=== PATIENT | female | born 1955 | race Caucasian/White ===

== ENCOUNTER 2023-02-03 18:14 | Outpatient (OUT) | payer MEDICARE, OTHER, SELFPAY ==
--- NOTE | 2023-02-03 18:22 | US_ITS ---
The [address] [address] Patient Name: KEVIN LAZARO MRN: [id number] date: 1955 Sex: F Assigned Patient Location: US Current Patient Location: US Accession/Order Number: [id number] Exam Date: 02/03/2023 18:25 Report Date: 02/03/2023 20:11 At the request of: MARILEE SAEED Procedure: US venous doppler LE RT EXAM: US venous doppler LE RT HISTORY: EDEMA R60.9 COMPARISON: None. TECHNIQUE: Right lower extremity ultrasound is performed. Doppler interrogation of the deep veins using standard technique performed. FINDINGS: Soft tissue edema is detected in the right lower extremity. There is no evidence of right lower extremity DVT. Normal augmentation and waveforms. US/US venous doppler LE RT IMPRESSION: No findings of acute right lower extremity DVT. Soft tissue swelling. Electronically authenticated by: LLUVIA MCGUIRE Date: 02/03/2023 20:11
== END 2023-02-03 18:15 | disposition home or self-care (01) ==
PROVIDERS: PCP Family Medicine; Visit Provider Family Medicine
DX: R60.0 Localized edema (principal); M79.604 Pain in right leg
CPT/HCPCS: 93971

== ENCOUNTER 2024-10-22 09:20 | Outpatient (OUT) | payer OTHER, SELFPAY ==
--- OUTSIDE RECORDS SUMMARY | 2024-09-07 07:00 | XMS_ITS ---
Author Organization The [facility] in [place] Address [address] [place] [address] Care Team Providers Care First Responder Name Role Phone Vikram Mora Primary Care Provider Allergies Allergen (clinical drug ingredient) Drug/Non Drug Allergy documented on EMR Reaction Allergy Type Onset Date Status alendronate Fosamax bad diarrhea Drug Allergy Ac tive REASON FOR VISIT Presents to office alone for c/o dry cough x4 days. Some nasal congestion, Using otc cold medication Medications Medication SIG (Take, Route, Frequency, Duration) Notes Start Date End Date Status Turmeric 500 MG as directed Orally Active Azithromycin 250 MG 2 tabs today then 1 tab Orally daily for 5 days 09/07/2024 Active Xifaxan 550 MG 1 tablet Orally tid for 14 days 07/02/2024 Active ZyrTEC Allergy 10 MG 1 tablet Orally Onc e a day Active Simvastatin 20 MG TAKE 1 TABLET BY KERON TH EVERY DAY for 90 Active Magnesium 200 MG 1 tablet with a meal Orally Q HS Active Multi Vitamin - 1 tablet Orally Once a day Active Calcium 500 MG 1 tablet with meals Orally Once a day Active Citalopram Hydrobromide 10 MG TAKE 1 TABLET BY MOUTH EVERY DAY for 90 Active Social History Tobacco Use: Social History Observation Description Date Details (start date - stop date) Former Smoker 03/28/1976 - 03/28/1983 Tobacco Use/Smoking Question Answer Notes Patient is a former smoker When did you start smoking? 03/28/1976 When did you stop smoking? 03/28/1983 How long has it been since you last smoked? > 10 years AUDIT-C (Standard) Question Answer Notes Did you have a drink contain ing alcohol in the past year? Yes How often did you have six o r more drinks on one occasion in the past year? Never (0 point) How many drinks did you have on a typical day when you were drinking in the past year? 1 or 2 drinks (0 point) How often did you have a dri nk containing alcohol in the past year? Monthly or less (1 point) Points 1 Interpretation Negative Vital Signs Weight 134.8 lbs 09/07/2024 Height 62 in 09/07/2024 Blood pressure systolic 132 mm Hg 09/08/19 25 Blood pressure diastolic 86 mm Hg 025 Temperature 99.0 degrees Fahrenheit 09/08/19 25 BMI 24.65 kg/m2 09/07/2024 Encounters Encounter Location Date Provider Diagnosis [facility] [address] [place] [address] 09/07/2024 Vikram Hoy Acute bronchitis, unspecified organism J20.9 Assessments Encounter Date Diagnosis (ICD Code) Assessment Notes Treatment Notes Treatment Clinical Notes Section Notes 09/07/2024 Acute bronchitis, unspecified organism (ICD-10 - J20.9) Rest and drink more liquids, especially water. You may use a humidifier or vaporizer to help keep the drainage moist. Ugau-brs-qmgcvlw Nasal Saline may help the stuffy and runny nose. Use Ibuprofen and or Tylenol as needed for fever, chills, body aches or pain. Children 5 years old should not be given dwrp-ggt-enmgokf cough and cold medications such as guaifenesin and dextromethorphan. If you're over age 5, you may try muoj-izy-mhefles cold medications such as guaifenesin and dextromethorphan, or multi-symptom cold reliever such as Dayquil to help reduce the symptoms. Antibiotics have been prescribed. You should take these until completed and follow the directions. Antibiotics can sometimes cause upset stomach, and in rare cases, serious allergic reactions or serious gastrointestinal problems. If you start having severe abdominal pain, severe vomiting, or bloody diarrhea, you should be reevaluated by your physician or urgent care immediately. Follow up with your Primary Care Provider or return to clinic if symptoms do not improve within 3-5 days. If you develop severe symptoms such as shortness of breath, repeated vomiting, coughing up blood, or chest pain you should go to the emergency room or call 911 Plan Of Treatment Medication Medication Name Sig Start Date Stop Date Notes Azithromycin 250 MG 2 tabs today then 1 tab Orally daily for 5 days 09/07/2024 Treatment Notes Assessment Notes Acute bronchitis, unspecified organism R est and drink more liquids, especially water. You may use a humidifier or vaporizer to help keep the drainage moist. Vsax-fig-ghksuxi Nasal Saline may help the stuffy and runny nose. Use Ibuprofen and or Tylenol as needed for fever, chills, body aches or pain. Children 5 years old should not be given rlwh-jrz-kodfuqb cough and cold medications such as guaifenesin and dextromethorphan. If you're over age 5, you may try fypp-rex-delqiho cold medications such as guaifenesin and dextromethorphan, or multi-symptom cold reliever such as Dayquil to help reduce the symptoms. Antibiotics have been prescribed. You should take these until completed and follow the directions. Antibiotics can sometimes cause upset stomach, and in rare cases, serious allergic reactions or serious gastrointestinal problems. If you start having severe abdominal pain, severe vomiting, or bloody diarrhea, you should be reevaluated by your physician or urgent care immediately. Follow up with your Primary Care Provider or return to clinic if symptoms do not improve within 3-5 days. If you develop severe symptoms such as shortness of breath, repeated vomiting, coughing up blood, or chest pain you should go to the emergency room or call 911 Next Appt Details Follow Up: 3-5 days if not i mproving, Reason: Progress Notes * Rosalind VALENTEpetty EdgarDOB:[birth year] (69 yo F)Acc No.[id number]:09/07/2024 Progress Note Patient: Colette MOSQUEDA Provider: Peg Mora ([facility])MD :1955 A ge:69 Y S ex:Female Date:09/07/2024 Address:[facility] [address] [place], [id number] Check In:10:47 AM ESTCheck O ut:11:22 AM EST Subjective: * Chief Complaints: * P resents to office alone for c/o dry cough x4 days. Some nasal congestionUsing otc cold medication * HPI: B ronchitis: The patient complains of symptoms of bronchitis. The symptoms have been present for 1-2 days. The symptoms are moderate. The patient has not been exposed to sick contacts. Symptomatic treatment has included OTC medication. Associated symptoms include nasal congestion, postnasal drainage, congested ears, cough, fever, chills, body aches. * ROS: E NT: Ear pain d enies. H oarseness d enies. ? C ardiovascular: Edema d enies. P alpitations d enies. ? R espiratory: Comments S ee HPI for details. G astrointestinal: Abdominal pain d enies. D iarrhea d enies. N ausea d enies. S kin: Rash d enies. * Active Problem List I87.2 Venous insufficiency Modified On:08/19/2022 Status:confirmed G47.00 Insomnia Modified On:02/21/2023 Status:confirmed L30.9 Eczema Modified On:08/19/2022 Status:confirmed L72.3 Sebaceous cyst Modified On:08/19/2022 Status:confirmed J32.9 Sinusitis Modified On:08/19/2022 Status:confirmed H61.20 Cerumen impaction Modified On:08/19/2022 Status:confirmed R19.7 Diarrhea Modified On:08/19/2022 Status:confirmed J20.9 Acute bronchitis Modified On:08/19/2022 Status:confirmed H10.9 Conjunctivitis Modified On:08/19/2022 Status:confirmed L25.9 Contact dermatitis Modified On:08/19/2022 Status:confirmed M23.90 Internal derangement of knee Modified On:08/19/2022 Status:confirmed K56.609 Small bowel obstruct ion Modified On:08/19/2022 Status:confirmed M17.11 Osteoarthritis of ri ght knee Modified On:08/19/2022 Status:confirmed U07.1 COVID-19 virus infec tion Modified On:05/25/2023W/U Status:confirmed R51.9 Headache, unspecifie d Modified On:02/21/2023U Status:confirmed J04.0 Acute laryngitis, wi thout mention of obstruction Modified On:08/19/2022/U Status:confirmed R19.03 Right lower quadrant abdominal swelling, mass and lump Modified On:08/19/2022U Status:confirmed R60.9 Edema Modified On:02/03/2023U Status:confirmed K58.9 Irritable bowel dise ase Modified On:07/02/2024U Status:confirmed * Medical History: * Surgical History: R t Total knee 08/2022 * Hospitalization/Major Diagno stic Procedure: * Family History: F ather: 91 yrs, diagnosed with Unspecified heart disease. M other: 91 yrs. B rother(s): alive. S on(s): alive. D pauline(s): alive. 2 brother(s) - healthy. 1 son(s) , 2 daughter(s) . . * Social History: T obacco Use: T obacco Use/Smoking P atient is a f ormer smoker W hen did you start smoking? 0 03/28/1976 W hen did you stop smoking? 0 03/28/1983 H ow long has it been since you last smoked??> 10 years D rug/Alcohol: A GLENN-C (Standard) D id you have a drink containing alcohol in the past year? Y es H ow often did you have six or more drinks on one occasion in the past year? N ever (0 point) H ow many drinks did you have on a typical day when you were drinking in the past year? 1 or 2 drinks (0 point) H ow often did you have a drink containing alcohol in the past year? M onthly or less (1 point) P oints 1 I nterpretation N egative * Medications: T akingCalcium 500 MG Tablet 1 tablet with meals Orally Once a day Citalopram Hydrobromide 10 MG Tablet TAKE 1 TABLET BY MOUTH EVERY DAY Magnesium 200 MG Tablet 1 tablet with a meal Orally Q HS Multi Vitamin - Tablet 1 tablet Orally Once a day Simvastatin 20 MG Tablet TAKE 1 TABLET BY MOUTH EVERY DAY Turmeric 500 MG Capsule as directed Orally Xifaxan(rifAXIMin) 550 MG Tablet 1 tablet Orally tid ZyrTEC Allergy(Cetirizine HCl) 10 MG Tablet 1 tablet Orally Once a day Taking Calcium 500 MG Tablet 1 tablet with meals Orally Once a day Taking Citalopram Hydrobromide 10 MG Tablet TAKE 1 TABLET BY MOUTH EVERY DAY Taking Magnesium 200 MG Tablet 1 tablet with a meal Orally Q HS Taking Multi Vitamin - Tablet 1 tablet Orally Once a day Taking Simvastatin 20 MG Tablet TAKE 1 TABLET BY MOUTH EVERY DAY Taking Turmeric 500 MG Capsule as directed Orally Taking Xifaxan(rifAXIMin) 550 MG Tablet 1 tablet Orally tid Taking ZyrTEC Allergy(Cetirizine HCl) 10 MG Tablet 1 tablet Orally Once a day DiscontinuedCefdinir 300 MG Capsule 2 capsule Orally once a day Medication List reviewed and reconciled with the patientDiscontinued Cefdinir 300 MG Capsule 2 capsule Orally once a day Medication List reviewed and reconciled with the patient * Allergies: F osamax: bad diarrhea Objective: * Vitals: W t:134.8lbs, Ht: 62 in, BP:132/86mm Hg, Temp:99.0F, BMI:24.65Index, Ht-cm: 157.48 cm, Wt-k.14 kg. * Examination: G eneral Examination: GENERAL APPEARANCE: in no acute distress. EYES: EOMI. EARS: auditory canal clear, middle ear effusion noted.? NOSE: clear discharge, turbinates pale and swollen. ORAL CAVITY: mucosa moist. THROAT: no erythema, post-nasal drainage noted. NECK: neck supple, no thyromegaly. LYMPH NODES: n o cervical adenopathy. LUNGS: unlabored, clear to auscultation bilaterally. CARDIO: n o murmurs, regular rate and rhythm. ABDOMEN: bowel sounds present, no organomegaly . ? Assessment: * Assessment: 1. A cute bronchitis, unspecified organism - J20.9 (Primary) Plan: * Treatment: * Procedure Codes: * Preventive Medicine: Screenings/Counseling: F ALL RISK SCREENING Fall Risk Assessment: N o falls in the past year * Follow Up: 3 -5 days if not improving * * Sign off status: Completed Visit Status: C HK (Check Out) true * Provider: Peg Mora ([facility])MD Date: 0 09/07/2024 Generated for Elliott lazo/Refugio/Jason on: 0 10/22/2024 09:27 AM EDT History and Physical Notes * Examination Category Sub-Category Detail Notes Category Not es General Examination GENERAL APPEARANCE: in no acute di stress EYES: EOMI EARS: auditory canal clear , middle ear effusion noted NOSE: clear discharge, tur binates pale and swollen THROAT: no erythema, post-na shirley drainage noted NECK: neck supple, no thyr omegaly CARDIO: no murmurs, regular rate and rhythm LUNGS: unlabored, clear to auscultation bilaterally ABDOMEN: bowel sounds present , no organomegaly LYMPH NODES: no cervical adenopat hy ORAL CAVITY: mucosa moist
--- OUTSIDE RECORDS SUMMARY | 2024-09-12 04:27 | XMS_ITS ---
Author Organization The [facility] in [place] Address [address] [place] [address] Care Team Providers Care Court Monitor Name Role Phone Vikram Mora Primary Care Provider REASON FOR VISIT Bronchitis Medications Medication SIG (Take, Route, Fr equency, Duration) Notes Start Date End Date Status Benzonatate 200 MG 1 capsule Orally Thr ee times a day for 7 days 09/12/2024 Active levoFLOXacin 500 MG 1 tablet Orally Once a day for 10 day(s) 09/12/2024 Active Encounters Encounter Location Date Provider Diagnosis [address] [address] 09/12/2024 Vikram Mora Plan Of Treatment Medication Medication Name Sig Start Date Stop Date Notes Benzonatate 200 MG 1 capsule Orally Thr ee times a day for 7 days 09/12/2024 levoFLOXacin 500 MG 1 tablet Orally Once a day for 10 day(s) 09/12/2024 Progress Notes * Colette VALENTEDOB:[birth year] (69 yo F)Acc No.[id number]:09/12/2024 Patient: Claudia Colette RON :1955 A ge:69 Y S ex:Female [address] [place], [address] * Refills Start levoFLOXacin Tablet, 500 MG, [...] * true * Date: Generated for Elliott lazo/Refugio/Jason on: 10/22/2024 09:27 AM EDT
--- OUTSIDE RECORDS SUMMARY | 2024-10-22 04:45 | XMS_ITS ---
Author Organization [facility] in [place] Address [address] [place] [address] Care Team Providers Care Prize Coordinator Name Role Phone Vikram Mora Primary Care Provider Allergies Allergen (clinical drug ingredient) Drug/Non Drug Allergy documented on EMR Reaction Allergy Type Onset Date Status alendronate Fosamax bad diarrhea Drug Allergy Ac tive REASON FOR VISIT Check Up, Struggling with focus, Overstimulation, Anxiety Medications Medication SIG (Take, Route, Frequency, Duration) Notes Start Date End Date Status Calcium 500 MG 1 tablet with meals Orally Once a day Active Multi Vitamin - 1 tablet Orally Once a day Active Simvastatin 20 MG TAKE 1 TABLET BY KERON TH EVERY DAY for 90 Active Citalopram Hydrobromide 10 MG TAKE 1 TABLET BY MOUTH EVERY DAY for 90 Active Magnesium 200 MG 1 tablet with a meal Orally Q HS Active ZyrTEC Allergy 10 MG 1 tablet Orally Onc e a day Active Turmeric 500 MG as directed Orally Active Social History Tobacco Use: Social History Observation Description Date Details (start date - stop date) Former Smoker 03/28/1976 - 03/28/1983 Tobacco Use/Smoking Question Answer Notes Patient is a former smoker When did you start smoking? 03/28/1976 When did you stop smoking? 03/28/1983 How long has it been since you last smoked? > 10 years Problems Problem Type SNOMED Code ICD Code Onset Dates Problem Status W/U Status Risk Notes Problem Magnesium deficiency (808884118) Magnesium deficiency (E61.2) Active confirmed Problem Allergic rhinitis (93058727) Allergic rhinitis (J30.9) Active confirmed Problem Osteopenia (522940276) Osteopenia (M85.80) Active confirmed Vital Signs Weight 135.0 lbs 10/22/2024 Height 62 in 10/22/2024 Blood pressure systolic 138 mm Hg 10/23/19 25 Blood pressure diastolic 82 mm Hg 025 BMI 24.69 kg/m2 10/22/2024 Encounters Encounter Location Date Provider Diagnosis [facility] [address] [place] [address] 10/22/2024 Vikram Mora Irritable bowel disease K58.9 ; Magnesium deficiency E61.2 ; Allergic rhinitis J30.9 and Osteopenia M85.80 Assessments Encounter Date Diagnosis (ICD Code) Assessment Notes Treatment Notes Treatment Clinical Notes Section Notes 10/22/2024 Irritable bowel disease (ICD-10 - K58.9) stabel off meds 10/22/2024 Magnesium deficiency (ICD-10 - E61.2) checing labs 10/22/2024 Allergic rhinitis (ICD-10 - J30.9) [place]abel for [place] 10/22/2024 Osteopenia (ICD-10 - M85.80) on prolia Plan Of Treatment Treatment Notes Assessment Notes Irritable bowel disease stabel off meds Magnesium deficiency checing labs Allergic rhinitis stabel for [place] Osteopenia on prolia Pending Test Test Name Order Date HEMOGLOBIN A1C (GLYCO) 10/22/2024 IRON, TOTAL 10/22/2024 LIPID PANEL (CHOL/TRIG/HDL/LDL) 10/23/19 25 MAGNESIUM 10/22/2024 THYROID PANEL (T4/TSH/FREE T3) 5 CMP (COMP MET DAILEY) w/eGFR CKD-EPI 2024 CBC WITH DIFF 10/22/2024 Progress Notes * Colette VALENTEDOB:[birth year] (69 yo F)Acc No.[id number]:10/22/2024 UNLOCKED PROGRESS NOTE Progress Note Patient: Colette MOSQUEDA Provider: Peg Mora ([facility])MD :1955 A ge:69 Y S ex:Female Date:10/22/2024 Address:[facility] [address], [id number] Check In:08:48 AM ESTCheck O ut:09:12 AM EST Subjective: * Chief Complaints: * 1 . Check Up. 2. Struggling with focus, Overstimulation, Anxiety. * HPI: G eneral: Had labs done in [place] - n eeds routine labs doing well with anxiety - controllingon own On magnesium - heling cholesterl - on meds SHERIN _ stabel on meds. * ROS: E ENT: hearing changes d enies. v isual changes d enies.?non-healing mouth sores d enies. s wollen glands or neck lumps d enies. h oarseness d enies. s ore throat d enies. d ifficulty swallowing d enies. n ose bleeds d enies. n suad congestion d enies. e ar ache d enies. e ar discharge?denies. r inging in ears d enies. l ight sensitivity d enies. e ye pain d enies. b lurring d enies. e ye irritation d enies. d ouble vision d enies.?vision loss d enies. G eneral/Constitutional: Sweats: D enies. F atigue d enies. S leep problems d enies. A norexia d enies. M alaise d enies. W eight loss d enies.?Fatigue or Weakness d enies. F ever or Chills d enies. C ardiovascular: Shortness of Breath w/lying flat d enies. L ightheadedness/dizziness d enies. C hest tightness/ heavy pressure d enies. S welling of legs, ankles, or feet d enies. W aking up with shortness of breath d enies. C hest pain denies. P alpitations d enies. W eight gain d enies. R espiratory: Chronic or frequent cough d enies. C oughing up blood?denies. D ifficulty breathing d enies. P roductive cough d enies. S noring?denies. S hortness of breath that awakens from sleep (PND) d enies. C hest pain d enies. S putum production d enies. W heezing d enies. M usculoskeletal: Joint pain d enies. J oint Fluid d enies. B ack pain d enies. K nee pain d enies. N silke pain d enies. J oint Stiffness d enies. M uscle cramps d enies. W eakness of muscles d enies. A rthritis d enies. M uscle aches d enies. P ain in shoulder(s) d enies. S wollen joints d enies. * Medical History: V enous insufficiency, Osteoarthritis of right knee, Small bowel obstruction, COVID-19 virus infection, Diarrhea, Right lower quadrant abdominal swelling, mass and lump, Eczema, Acute bronchitis, Cerumen impaction, Internal derangement of knee, Sebaceous cyst, Contact dermatitis, Insomnia, Conjunctivitis, Sinusitis, Acute laryngitis, without mention of obstruction, Headache, unspecified.? * Surgical History: R t Total knee 08/2022. * Hospitalization/Major Diagno stic Procedure: D enies Past Hospitalization. * Family History: F ather: 91 yrs, [...] been since you last smoked??> 10 years * Medications: T aking Calcium 500 MG Tablet 1 tablet with meals Orally Once a day , Taking Citalopram Hydrobromide 10 MG Tablet TAKE 1 TABLET BY MOUTH EVERY DAY , Taking Magnesium 200 MG Tablet 1 tablet with a meal Orally Q HS , Taking Multi Vitamin - Tablet 1 tablet Orally Once a day , Taking Simvastatin 20 MG Tablet TAKE 1 TABLET BY MOUTH EVERY DAY , Taking Turmeric 500 MG Capsule as directed Orally , Taking ZyrTEC Allergy(Cetirizine HCl) 10 MG Tablet 1 tablet Orally Once a day , Discontinued Azithromycin 250 MG Tablet 2 tabs today then 1 tab Orally daily , Discontinued Benzonatate 200 MG Capsule 1 capsule Orally Three times a day , Discontinued levoFLOXacin 500 MG Tablet 1 tablet Orally Once a day , Discontinued Xifaxan(rifAXIMin) 550 MG Tablet 1 tablet Orally tid , Medication List reviewed and reconciled with the patient * Allergies: F osamax: bad diarrhea. Objective: * Vitals: W t:135.0lbs, Ht: 62 in, BP:138/82mm Hg, BMI:24.69Index, Ht-cm: 157.48 cm, Wt-k.24 kg. * Examination: P hysical Exam: GENERAL: w ell developed, well nourished, in no acute distress. HEAD: n ormocephalic/atraumatic. EYES: p upils equal, round and reactive to light, conjunctivae and sclerae normal. EARS: n o deformity or lesion of external ear, canals and TM appear normal bilaterally, TM's intact, not inflamed with normal light reflex, hearing grossly normal to conversational speech. NOSE: n o deformity, discharge, inflammation, or lesions.? MOUTH: m ucous membranes moist, normal oropharynx and posterior pharynx without lesions or exudates, tongue normal, dentition normal. NECK: n silke supple, no masses or palpable cervical nodes, trachea midline, thyroid without nodules, masses, tenderness, or enlargement. CHEST: n o chest wall deformity, no chest wall tenderness.? LUNGS: n ormal respiratory effort and clear to auscultation, no wheezes, rales, or rhonchi, good air exchange. CARDIO: r egular rate and rhythm, normal S1 and S2, nor murmur, rub, or gallop. PULSES: n ormal capillary refill. ABDOMEN: s oft, non-distended, non-tender, no masses. MUSCULOSKELETAL: n o deformity or scoliosis noted, normal range of motion, joints normal, no erythema, edema, effusion, or ecchymosis. EXTREMITY: n o clubbing, cyanosis, edema, or deformity with normal ROM in both upper and lower bilateral extremities. NEUROLOGIC: g rossly normal. SKIN: n o rashes, ulcerations, or suspicious lesions. LYMPH NODES: n o cervical adenopathy, nodes normal. MENTAL STATUS: a lert and oriented x3, normal mood and affect. Assessment: * Assessment: 1. I rritable bowel disease - K58.9 (Primary) 2 . M agnesium deficiency - E61.2 3 . A llergic rhinitis - J30.9 4 . O steopenia - M85.80? Plan: * Treatment: 2. M agnesium deficiency L AB: HEMOGLOBIN A1C (GLYCO) L AB: IRON, TOTAL L AB: LIPID PANEL (CHOL/TRIG/HDL/LDL) L AB: MAGNESIUM L AB: THYROID PANEL (T4/TSH/FREE T3) L AB: CMP (COMP MET DAILEY) w/eGFR CKD-EPI L AB: CBC WITH DIFF Notes: checing labs 3. A llergic rhinitis L AB: HEMOGLOBIN A1C (GLYCO) L AB: IRON, TOTAL L AB: LIPID PANEL (CHOL/TRIG/HDL/LDL) L AB: THYROID PANEL (T4/TSH/FREE T3) L AB: CMP (COMP MET DAILEY) w/eGFR CKD-EPI L AB: CBC WITH DIFF Notes: stabel for [place] 4. O steopenia L AB: HEMOGLOBIN A1C (GLYCO) L AB: IRON, TOTAL L AB: LIPID PANEL (CHOL/TRIG/HDL/LDL) L AB: THYROID PANEL (T4/TSH/FREE T3) L AB: CMP (COMP MET DAILEY) w/eGFR CKD-EPI L AB: CBC WITH DIFF Notes: on prolia * * Electronic signature of Vikram Mora MD, [id number] on 10/22/2024 at 09:27 AM EDT Sign off status: Pending Visit Status: Edwin HK (Check Out) * Provider: Peg Mora ([facility])MD Date: 10/22/2024 Generated for Printi ng/Faxing/eTransmitting on: 10/22/2024 09:27 AM EDT History and Physical Notes * HPI (History of Present Illness) Category Sub-Category Detail Notes Category Not es General Had labs done in [place] - needs routine labs doing well with anxiety - controllingon own On magnesium - heling cholesterl - on meds SHERIN _ stabel on meds Examination Category Sub-Category Detail Notes Category Not es Physical Exam GENERAL: well developed, well nourished, in no acute distress HEAD: normocephalic/atraum atic EYES: pupils equal, round and reactive to light, conjunctivae and sclerae normal EARS: no deformity or lesi on of external ear, canals and TM appear normal bilaterally, TM's intact, not inflamed with normal light reflex, hearing grossly normal to conversational speech NOSE: no deformity, discha rge, inflammation, or lesions MOUTH: mucous membranes emmanuel st, normal oropharynx and posterior pharynx without lesions or exudates, tongue normal, dentition normal NECK: neck supple, no mass es or palpable cervical nodes, trachea midline, thyroid without nodules, masses, tenderness, or enlargement CHEST: no chest wall deform ity, no chest wall tenderness LUNGS: normal respiratory e ffort and clear to auscultation, no wheezes, rales, or rhonchi, good air exchange CARDIO: regular rate and rhy thm, normal S1 and S2, nor murmur, rub, or gallop PULSES: normal capillary ref ill ABDOMEN: soft, non-distended, non-tender, no masses RECTAL: MUSCULOSKELETAL: no deformity or scol iosis noted, normal range of motion, joints normal, no erythema, edema, effusion, or ecchymosis EXTREMITY: no clubbing, cyanosi s, edema, or deformity with normal ROM in both upper and lower bilateral extremities NEUROLOGIC: grossly normal SKIN: no rashes, ulceratio ns, or suspicious lesions LYMPH NODES: no cervical adenopat hy, nodes normal MENTAL STATUS: alert and oriented x 3, normal mood and affect
--- OUTSIDE RECORDS SUMMARY | 2024-10-22 09:27 | XMS_ITS | Patient Health Record ---
Author Organization [facility] in [place] Address [address] [place] [address] Care Team Providers Care Phone Technician Name Role Phone Vikram Mora Primary Care Provider [phone] Allergies Allergen (clinical drug ingredient) Drug/Non Drug Allergy documented on EMR Reaction Allergy Type Onset Date Status alendronate Fosamax bad diarrhea Drug Allergy Ac tive Reason For Referral No Information Medications Medication SIG (Take, Route, Frequency, Duration) [...] with a meal Orally Q HS Active Turmeric 500 MG as directed Orally Active ZyrTEC Allergy 10 MG 1 tablet Orally Onc e a day Active Social History Tobacco Use: Social History Observation Description Date Details (start date - stop date) Former Smoker 03/28/1976 - 03/28/1983 Tobacco Use/Smoking Question Answer Notes Patient is a former smoker When did you start smoking? 03/28/1976 When did you stop smoking? 03/28/1983 How long has it been since you last smoked? > 10 years Alcohol Screen (Audit-C) Question Answer Notes Did you have a drink containing alcohol in the p ast year? No Points 0 Interpretation Negative AUDIT-C (Standard) Question Answer Notes Did you [...] less (1 point) Points 1 Interpretation Negative Problems Problem Type SNOMED Code ICD Code Onset Dates Problem Status W/U Status Risk Notes Problem Magnesium deficiency (074739823) Magnesium deficiency (E61.2) Active confirmed Problem Swollen abdomen (60642978) Right lower quadrant abdominal swelling, mass and lump (R19.03) Active confirmed Problem Edema (15941772) Edema (R60.9) Active confirmed Problem Venous insufficiency of leg (disorder) (943678027) Venous insufficiency (I87.2) Active confirmed Problem Osteopenia (485134922) Osteopenia (M85.80) Active confirmed Problem Insomnia (206309641) Insomnia (G47.00) Active confirmed Problem Eczema (92331509) Eczema (L30.9) Active confirm ed Problem Sebaceous cyst (160978253) Sebaceous cyst (L72.3) Active confirmed Problem Sinusitis (11314121) Sinusitis (J32.9) Active confirmed Problem Allergic rhinitis (27799709) Allergic rhinitis (J30.9) Active confirmed Problem Impacted cerumen (08862196) Cerumen impaction (H61.20) Active confirmed Problem Diarrhea (68933767) Diarrhea (R19.7) Active confirmed Problem Acute bronchitis (01067618) Acute bronchitis (J20.9) Active confirmed Problem Conjunctivitis (0960991) Conjunctivitis (H10.9) Active confirmed Problem Contact dermatitis (30910258) Contact dermatitis (L25.9) Active confirmed Problem Internal derangement of knee (45044639) Internal derangement of knee (M23.90) Active confirmed Problem Irritable bowel syndrome (49204348) Irritable bowel disease (K58.9) Active confirmed Problem Small bowel obstruction (865671935) Small bowel obstruction (K56.609) Active confirmed Problem Osteoarthritis of knee (164737158) Osteoarthritis of right knee (M17.11) Active confirmed Problem Disease caused by Severe acute respiratory syndrome coronavirus 2 (disorder) (103824733) COVID-19 virus infection (U07.1) Active confirmed Problem Headache (16991681) Headache, unspecified (R51.9) Active confirmed Problem Acute Laryngitis (0796889) Acute laryngitis, without mention of obstruction (J04.0) Active confirmed Vital Signs Temperature 99.0 degrees Fahrenheit 09/07/2024 Blood pressure diastolic 82 mm Hg 10/22/2024 Height 62 in 10/22/2024 Blood pressure systolic 138 mm Hg 10/22/2024 Weight 135.0 lbs 10/22/2024 BMI 24.69 kg/m2 10/22/2024 Encounters Encounter Location Date Provider Diagnosis [address] [address] 02/09/2024 Vikram Hoy Headache, unspecifie d R51.9 ; Edema R60.9 ; Insomnia G47.00 and Encounter for Medicare annual wellness exam Z00.00 [address] [place] [address] 05/07/[address] [facility] [address] [facility] [address] 08/06/2024 Vikram Krausey [facility] [address] [facility] [address] 09/12/2024 Vikram Krausey [address] [place] [address] 07/02/2024 Vikram Jimiy Irritable bowel dise ase K58.[address] [address] 09/07/2024 Vikram Krausey Acute bronchitis, unspecified organism J20.[address] [address] 10/22/2024 Vikram Jimiy Irritable bowel dise ase K58.9 ; Magnesium deficiency E61.2 ; Allergic rhinitis J30.[address] [facility] [address] [facility] [address] 02/09/2024 Vikram Mora Encounter for [facility] are annual wellness exam Z00.00 Assessments Encounter Date Diagnosis (ICD Code) Assessment Notes Treatment Notes Treatment Clinical Notes Section Notes 02/09/2024 Encounter for Medicare annual wellness exam (ICD-10 - Z00.00) 07/02/2024 Irritable bowel disease (ICD-10 - K58.9) 09/07/2024 Acute bronchitis, unspecified organism (ICD-10 - J20.9) Rest and drink more liquids, especially water. You may use a humidifier or vaporizer to help keep the drainage moist. Hepd-dxm-clgsnjq Nasal Saline may help the stuffy and runny nose. Use Ibuprofen and or Tylenol as needed for fever, chills, body aches or pain. Children 5 years old should not be given mxon-xtr-tdelbba cough and cold medications such as guaifenesin and dextromethorphan. If you're over age 5, you may try hdmx-gep-alajjuh cold medications such as guaifenesin and dextromethorphan, [...] to the emergency room or call 911 10/22/2024 Irritable bowel disease (ICD-10 - K58.9) stabel off meds 10/22/2024 Magnesium deficiency (ICD-10 - E61.2) checing labs 02/09/2024 Headache, unspecified (ICD-10 - R51.9) 02/09/2024 Edema (ICD-10 - R60.9) 02/09/2024 Insomnia (ICD-10 - G47.00) 10/22/2024 Allergic rhinitis (ICD-10 - J30.9) stabel for [place] 10/22/2024 Osteopenia (ICD-10 - M85.80) on prolia 02/09/2024 Encounter for Medicare annual wellness exam (ICD-10 - Z00.00) Plan Of Treatment Pending Test Test Name Order Date HEMOGLOBIN A1C (GLYCO) 10/22/2024 IRON, TOTAL 10/22/2024 LIPID PANEL (CHOL/TRIG/HDL/LDL) 10/23/19 25 US Lower Extremity RT 02/03/2023 COMPREHENSIVE METABOLIC PROFILE WITH GFR 02/09/2024 OCCULT BLOOD, FECAL, IMMUNOASSAY 024 CBC W/AUTO DIFF 02/09/2024 GLYCOHEMOGLOBIN A1C 02/09/2024 MAGNESIUM 10/22/2024 THYROID PANEL (T4/TSH/FREE T3) THYROID PANEL (T4/TSH/FREE T3) 5 Vitamin D 02/09/2024 Lipid Panel 02/09/2024 CMP (COMP MET DAILEY) w/eGFR CKD-EPI 2024 CBC WITH DIFF 10/22/2024 Insurance Providers Payer Name Payer Address Payer Phone Subscriber Number Group Number Insured Name Patient Relationship to Insured Coverage Start Date Coverage End Date [employer] [address] [place] [phone] [id number] Colette Valente Self - patient is the insured Medical (General) History Medical History History ICD Code Venous insufficiency I87.2 Osteoarthritis of right knee M17.11 Small bowel obstruction K56.609 COVID-19 virus infection U07.1 Diarrhea R19.7 Right lower quadrant abdominal swelling, mass and lump R19.03 Eczema L30.9 Acute bronchitis J20.9 Cerumen impaction H61.20 Internal derangement of knee M23.90 Sebaceous cyst L72.3 Contact dermatitis L25.9 Insomnia G47.00 Conjunctivitis H10.9 Sinusitis J32.9 Acute laryngitis, without mention of obs truction J04.0 Headache, unspecified R51.9 Surgical History Surgery Date(Month/Year) Rt Total knee 08/2022
--- OUTSIDE RECORDS SUMMARY | 2024-10-22 09:46 | XMS_ITS | CCD ---
Author Organization [facility] Care Team Providers Care Systems Technologist Name Role Phone Alexander Gen Carrillo Primary Care Physician Marilee Mora Primary Care Physician GRACEY ., DR HUNT Primary Care Unavailable HOY ., DR HUNT Admitting Unavailable HOY ., DR HUNT Attending Unavailable HOY ., DR HUNT Consulting Unavailable HOY ., DR HUNT Primary Care Unavailable HOY ., DR HUNT Admitting Unavailable HOY ., DR HUNT Attending Unavailable HOY ., DR HUNT Consulting Unavailable HOY ., DR HUNT Admitting Unavailable HOY ., DR HUNT Attending Unavailable HOY ., DR HUNT Consulting Unavailable HOY ., DR HUNT Primary Care Unavailable HOY ., DR HUNT Admitting Unavailable HOY ., DR HUNT Attending Unavailable HOY ., DR HUNT Primary Care Unavailable HOY ., DR HUNT Primary Care Unavailable HOY ., DR HUNT Admitting Unavailable HOY ., DR HUNT Consulting Unavailable HOY ., DR HUNT Attending Unavailable HOY ., DR HUNT Primary Care Unavailable NILL ., DR WOODRUFF Procedure Practitioner Unanimoi lable HOY ., DR HUNT Admitting Unavailable HOY ., DR HUNT Attending Unavailable HOY ., DR HUNT Consulting Unavailable NILL ., DR WOODRUFF Consulting Unavailable RONALD JORDAN Consulting Unavailable AGUBOSIMANÍBAL Consulting Unavailable BRANDON GARCIA Consulting Unavailable Marilee Mora MD Primary Care Provider [phone] JACOB ALVAREZ Referring Unavailable JACOB ALVAREZ Attending Unavailable JORDIN GARCIA Attending Unavailable BELINDA RAMIREZ Attending Unavailable JORDIN GARCIA Referring Unavailable Ranjan PEDERSEN Attending Unavailable Allergies Allergy Classification Reported Allergen(s) Allergy Type Date of Onset Reaction(s) Facility (1 source) No Known Medication Allergies; Translations: [No Known Medication Allergies] Propensity to adverse reactions (disorder) [facility] Repository Medications Current Medications Medication Drug Class(es) Dates Sig (Normalized) Sig (Original) Ascorbic Acid / Collagen (2 sources) Vitamin C Start: 05-28-2022 take 3 tablets by mouth twice daily ascorbic acid-collagen 3 tab(s), Oral, BID, Refill(s) 0, Prophylaxis Start Date: 05/28/22 Status: Ordered aspirin 81 mg delayed release oral tablet (2 sources) Platelet Aggregation Inhibitor, Nonsteroidal Anti-inflammatory Drug Start: 06-15-2022 take 1 tablet by mouth twice daily aspirin 81 mg Oral EC Tab 81 mg = 1 tab(s), Oral, BID, # 60 tab(s), Refills(s) 0, Pharmacy: [id number], 163, cm, 05/31/22 6:43:00 EST, Height/Length Dosing, 62.6, kg, 05/31/22 6:43:00 EST, Weight Dosing Start Date: 06/15/22 Status: Ordered b complex vitamins capsule (7 sources) take 1 capsule by mouth in the morning b complex vitamins capsule Take 1 capsule by mouth in the morning. Active Calcium Carb-Cholecalcifero l (CALCIUM 1000 + D PO) (7 sources) Start: 07-22-2022 Calcium Carb-Cholecalcifer ol (CALCIUM 1000 + D PO) 07/22/2022 Active calcium carbonate 1500 mg oral tablet (13 sources) Start: 08-26-2021 take 1 tablet by mouth once daily calcium (as carbonate) 600 mg oral tablet 600 mg = 1 tab(s), Oral, Daily, Prophylaxis Start Date: 08/26/21 Status: Ordered cefadroxil 500 mg oral capsule (1 source) Cephalosporin Antibacterial Start: 06-15-2022 End: 06-17-2022 take 1 capsule by mouth every twelve hours cefadroxil 500 mg Cap 500 mg = 1 cap(s), Oral, q12hr, X 2 day(s), # 4 cap(s), Refills(s) 0, Pharmacy: [id number], 163, cm, 05/31/22 6:43:00 EST, Height/Length Dosing, 62.6, kg, 05/31/22 6:43:00 EST, Weight Dosing Start Date: 06/15/22 Stop Date: 06/17/22 Status: Ordered Celebrate Multivitamin oral capsule (13 sources) Start: 08-26-2021 take 1 tablet by mouth once daily Celebrate Multivitamin oral capsule 1 tab, Oral, Daily, Prophylaxis Start Date: 08/26/21 Status: Ordered cephalexin 500 mg oral capsule (7 sources) Cephalosporin Antibacterial Start: 07-06-2023 cephalexin (Keflex) 500 MG capsule Indications: Presence of right artificial knee joint , Left knee pain, unspecified chronicity , Presence of left artificial knee joint Take all 4 capsules one hour before the procedure. 4 capsule 07/06/2023 Active cetirizine hydrochloride 10 mg oral tablet (11 sources) Histamine-1 Receptor Antagonist Start: 08-12-2021 take 1 tablet by mouth once daily cetirizine 10 mg Tab 10 mg = 1 tab(s), Oral, Daily, Refills(s) 0, Allergy symptoms Start Date: 08/12/21 Status: Ordered citalopram 10 mg oral tablet (20 sources) Serotonin Reuptake Inhibitor Start: 08-08-2022 take 1 tablet by mouth once daily citalopram (CeleXA) 10 MG tablet TAKE 1 TAB BY MOUTH EVERY DAY 08/08/2022 Active Start: 08-12-2021 take 1 tablet by kai once daily citalopram 10 mg Tab 10 mg = 1 tab(s), Oral, Daily, Refills(s) 0, Anxiety Start Date: 08/12/21 Status: Ordered docusate sodium 100 mg oral capsule (1 source) Start: 06-15-2022 take 1 capsule by mouth twice daily as needed for constipation Colace 100 mg Cap 100 mg = 1 cap(s), Oral, BID, PRN for constipation, # 40 cap(s), Refills(s) 0, Pharmacy: [id number], 163, cm, 05/31/22 6:43:00 EST, Height/Length Dosing, 62.6, kg, 05/31/22 6:43:00 EST, Weight Dosing Start Date: 06/15/22 Status: Ordered meloxicam 7.5 mg oral tablet (1 source) Nonsteroidal Anti-inflammatory Drug Start: 07-28-2022 take 1 tablet by mouth once daily meloxicam 7.5 mg Tab 7.5 mg = 1 tab(s), Oral, Daily, Refills(s) 0 Start Date: 07/28/22 Status: Ordered multivitamin (Theragran) tablet (7 sources) take 1 tablet by mouth in the morning multivitamin (Theragran) tablet Take 1 tablet by mouth in the morning. Active ondansetron 4 mg oral tablet (11 sources) Serotonin-3 Receptor Antagonist Start: 09-18-2021 take 1 tablet by mouth every six hours as needed for nausea Zofran 4 mg Tab 4 mg = 1 tab(s), Oral, q6hr, PRN Nausea, # 10 tab(s), Refills(s) 0, Pharmacy: [facility]/pharmacy #[id number], 159, cm, 08/26/21 15:41:00 EDT, Height/Length Dosing, 60.8, kg, 08/26/21 15:41:00 EDT, Weight Dosing Start Date: 09/18/21 Status: Ordered oxyCODONE hydrochloride 5 mg oral tablet (1 source) Opioid Agonist Start: 06-15-2022 oxyCODONE 5 mg Tab 5 mg = 1 tab(s), Oral, As Directed, 1-2 po q4-6 hrs prn pain Dx: M17.11, Z96.651 Duration: 7days, # 40 tab(s), Refills(s) 0, Pharmacy: [id number], 163, cm, 05/31/22 6:43:00 EST, Height/Length Dosing, 62.6, kg, 05/31/22 6:43:00 EST,... Start Date: 06/15/22 Status: Ordered raloxifene hydrochloride 60 mg oral tablet (20 sources) Estrogen Agonist/Antagonis t Start: 11-21-2023 take 1 tablet by mouth once daily raloxifene (Evista) 60 MG tablet Indications: Age related osteoporosis, unspecified pathological fracture presence (CMS/HCC) TAKE 1 TABLET BY MOUTH EVERY DAY 90 tablet 2 11/21/2023 Active Start: 08-14-2021 take 1 tablet by kai th once daily raloxifene 60 mg Tab 60 mg = 1 tab(s), Oral, Daily, Refills(s) 0, Other (see comment) Start Date: 08/14/21 Status: Ordered simvastatin 20 mg oral tablet (20 sources) HMG-CoA Reductase Inhibitor Start: 08-12-2021 take 1 tablet by mouth once daily at bedtime simvastatin 20 mg Tab 20 mg = 1 tab(s), Oral, Once a day (at bedtime), Refills(s) 0, High cholesterol Start Date: 08/12/21 Status: Ordered tretinoin 0.5 mg/ml topical lotion (3 sources) Retinoid Start: 02-08-2024 Tretinoin (Altreno) 0.05 % lotion Indications: Lentigines Apply thin layer to face at bedtime 45 g 11 02/08/2024 Active turmeric extract 500 mg oral capsule (9 sources) Start: 05-28-2022 take 1 capsule by mouth once daily turmeric 500 mg oral capsule 500 mg = 1 cap(s), Oral, Daily, Refills(s) 0, Prophylaxis Start Date: 05/28/22 Status: Ordered Turmeric (QC Josh teddy Complex) 500 MG capsule Tumeric Active Vitamin B Complex oral capsule (13 sources) Start: 08-26-2021 take 1 capsule by mouth once daily Vitamin B Complex oral capsule 1 cap(s), Oral, Daily, Prophylaxis Start Date: 08/26/21 Status: Ordered Problems Active Problems Problem Classification Problem Date Documented Da te Episodic/Chronic Abdominal hernia (9 sources) Complicated femoral hernia; Translations: [Unilateral femoral hernia, with obstruction, without gangrene, not specified as recurrent] Onset: 09-17-2021 10-12-2021 Episodic Allergic reactions (2 sources) Eczema 08-12-2021 Episodic Anxiety disorders (2 sources) Anxiety disorder, unspecified; Translations: [Anxiety] Onset: 09-24-2021 07-28-2022 Chronic Deficiency and other anemia (1 source) Anemia 07-28-2022 Episodic Diabetes mellitus without complication (1 source) Type 2 diabetes mellitus without complications; Translations: [TYPE 2 DM WITHOUT COMPLICATIONS] Onset: 07-22-2022 Chronic Disorders of lipid metabolism (16 sources) Hyperlipidemia; Translations: [Hyperlipidemia, unspecified] Onset: 01-05-2019 08-12-2021 Chronic Menopausal disorders (2 sources) Atrophic vaginitis; Translations: [Postmenopausal atrophic vaginitis] 12-26-2023 Chronic Mood disorders (14 sources) Mood disorder 05-18-2022 Chronic Nonmalignant breast conditions (1 source) Fibrocystic disease of breast 08-12-2021 Chronic Nutritional deficiencies (4 sources) Vitamin D deficiency, unspecified; Translations: [VITAMIN D DEFICIENCY UNSPECIFIED] Onset: 07-17-2022 Chronic Osteoporosis (17 sources) Osteoporosis; Translations: [Age-related osteoporosis without current pathological fracture] Onset: 09-24-2021 08-14-2021 Chronic Other aftercare (1 source) Other care home (current) drug therapy; Translations: [[employer]GER CURRENT DRUG THERAPY] Onset: 07-22-2022 Episodic Other circulatory disease (1 source) Vascular insufficiency 07-28-2022 Episodic Other connective tissue disease (1 source) Presence of left artificial knee joint; Translations: [PRESENCE LEFT ARTIFICIAL KNEE JOINT] Onset: 09-24-2021 Chronic Other gastrointestinal disorders (1 source) Abnormal feces; Translations: [Other fecal abnormalities] Onset: 08-03-2022 Episodic Other gastrointestinal disorders (1 source) Occult blood in stools 08-03-2022 Episodic Other inflammatory condition of skin (13 sources) Psoriasis 08-26-2021 Chronic Other screening for suspected conditions (not mental disorders or infectious disease) (6 sources) Encounter for screening for malignant neoplasm of colon; Translations: [Cancer cervix screening status] Onset: 07-22-2022 12-26-2023 Episodic Other skin disorders (4 sources) Lentiginosis; Translations: [Other melanin hyperpigmentation] 02-08-2024 Episodic Other skin disorders (2 sources) Actinic keratosis; Translations: [Actinic keratosis] 02-08-2024 Episodic Residual codes; unclassified (14 sources) Insomnia 08-12-2021 Episodic Residual codes; unclassified (2 sources) Postmenopausal state; Translations: [Asymptomatic menopausal state] 12-26-2023 Episodic Unclassified (14 sources) Body mass index 20-24 - normal 08-14-2021 Unclassified (13 sources) Right femoral hernia 08-15-2021 Unclassified (2 sources) CONTACT W/AND (SUSP) EXPOS COVID-19; Translations: [CONTACT W/AND (SUSP) EXPOS COVID-19] Onset: 09-15-2021 Unclassified (1 source) History of small bowel obstruction 07-28-2022 Viral infection (5 sources) COVID-19; Translations: [COVID-19] Onset: 09-11-2021 Past or Other Problems Problem Classification Problem Date Documented Da te Episodic/Chronic Immunizations and screening for infectious disease (1 source) Encounter for immunization; Translations: [ENCOUNTER FOR IMMUNIZATION] Onset: 09-15-2021 Episodic Screening and history of mental health and substance abuse codes (1 source) Personal history of nicotine dependence; Translations: [PERSONAL HISTORY OF NICOTINE DEPEND] Onset: 09-24-2021 Episodic Unclassified (1 source) CONTACT W/AND (SUSP) EXPOS COVID-19; Translations: [CONTACT W/AND (SUSP) EXPOS COVID-19] Onset: 09-11-2021 Unclassified (1 source) Patient encounter status 03-27-2024 Results Test Name Value Interpretation Reference Range Facility BI MAMMOGRAM SCREENING TOMOS YNTHESIS BILATERALon 03-23-2024 BI MAMMOGRAM SCREENING TOMOSYNTHESIS BILATERAL This is a summary report. The complete report is available in the patient's medical record. If you cannot access the medical record, please contact the sending organization for a detailed fax or copy. Examination: BI MAMMOGRAM SCREENING TOMOSYNTHESIS BILATERAL Clinical History: screening Technique: Screening digital mammography study of both breasts was performed with 2-D and 3-D tomosynthesis imaging. Study was compared to the prior exam dated 03/18/2023. Findings: There is no evidence of interval dominant spiculated mass, grouped microcalcifications , or skin thickening which would be suggestive of malignancy. Axillary lymph nodes are noted on the left. Breast implants appear grossly unremarkable and similar to the prior study, no obvious interval contour abnormality or leak. IMPRESSION: Impression: No specific evidence of malignancy seen in either breast. BIRADS 2 - Benign Findings DENSITY: There are scattered areas of fibroglandular density. FOLLOW-UP: Routine Screening Mammogram ELECTRONICALLY SIGNED BY: Seamus Baker M.D. Normal Not Available Comment on above: Order Comment: Spot compression and us prn DEXA BONE DENSITYon 03-23-20 DEXA BONE DENSITY Examination: DEXA BONE DENSITY Clinical History: screening Technique: Bone density study was performed. T score values for the lumbar spine, left femoral neck and left forearm are obtained. Comparison: 02/24/2021. Findings: Value for the lumbar spine from L1-L4 is -0.8. Value for the left femoral neck is -2.0. Value for the left forearm is -4.1. Findings are compatible with osteoporosis with high increased fracture risk. Study was compared to the prior exam dated 02/24/2021 which demonstrates similar findings. IMPRESSION: Impression: Findings compatible with osteoporosis with high increased fracture risk. Findings are similar to the prior exam. ELECTRONICALLY SIGNED BY: Seamus Baker M.D. Normal Not Available No Panel Informationon 02-07 [facility] OCC BLD IMMUNO SCREENon 06-27 OCCULT BLOOD Positive Abnormal NEGATIVE [facility] Comment on above: Performed By: #### C BC #### [facility] [address] [place] [address] Dr. Nehemiah Lord FREE T3on 07-16-2022 FREE T3 2.75 pg/mlL Normal 2.18-3.98 [facility] Comment on above: Performed By: #### C BC #### [facility] [address] [place] [address] Dr. Nehemiah Lord GLYCOHEMOGLOBIN A1Con 2022 ADA RECOMMENDATION SEE BELOW Normal [facility] Comment on above: Result Comment: ADA RECOMMENDED LIMIT 4.0 - 6.0 ADA THERAPEUTIC TARGET < 7.0 ACTION SUGGESTED > 7.0 Performed By: #### A 1C #### [facility] [address] [place] [address] Dr. Nehemiah Lord Glucose [Mass/Vol] 114 mg/dL Normal [facility] Comment on above: Performed By: #### A 1C #### [facility] [address] [place] [address] Dr. Nehemiah Lord HbA1c (d) [Mass fraction] 5.6 % Normal 4.5-6.2 [facility] Comment on above: Performed By: #### A 1C #### [facility] [address] [place] [address] Dr. Nehemiah Lord LIPID PROFILEon 07-16-2022 CHOL-HDL RATIO NORM SEE BELOW Normal [facility] Comment on above: Result Comment: 3.3 - 4.4 LOW RISK 4.4 - 7.1 AVERAGE RISK 7.1 - 11.0 MODERATE RISK >11.0 HIGH RISK Performed By: #### C BC #### [facility] [address] [place], [place] [address] Dr. Nehemiah Lord Cholesterol [Mass/Vol] 195 mg/dL Normal <=200 [facility] Comment on above: Performed By: #### C BC #### [facility] [address] [place], [place] [address] Dr. Nehemiah Lord Cholesterol in HDL [Mass/Vol] 91 mg/dL Critically high 40-60 [facility] Comment on above: Performed By: #### C BC #### [facility] [address] [place] [address] [address] Nehemiah Lord Cholesterol in LDL [Mass/Vol] 92.0 mg/dL Normal [facility] Comment on above: Performed By: #### C BC #### [facility] [address] [place] [address] [address] Nehemiah Lord Cholesterol.total/Cho lesterol in HDL [Mass ratio] 2.1 {ratio} Normal [facility] Comment on above: Performed By: #### C BC #### [facility] [address] [place] [address] [address] Nehemiah Lord HDL NORMAL > or = 60 mg/dl - LOW CARDIOVASCULAR RISK <40 mg/dl - HIGH CARDIOVASCULAR RISK Normal [facility] Comment on above: Performed By: #### C BC #### [facility] [address] [place] [id number] Nehemiah Lord LDL CALC NORMAL SEE BELOW Normal [facility] Comment on above: Result Comment: <100 mg/dl OPTIMAL 100 - 129 mg/dl NEAR OR ABOVE OPTIMAL 130 - 159 mg/dl BORDERLINE HIGH 160 - 189 mg/dl HIGH >190 mg/dl VERY HIGH Performed By: #### C BC #### [facility] [address] [place] [address] [address] Nehemiah Lord Triglyceride [Mass/Vol] 60 mg/dL Normal <=150 [facility] Comment on above: Performed By: #### C BC #### [facility] [address] [place] [address] [address] Nehemiah Lord VLDL CALC 12.0 mg/dL Normal [facility] Comment on above: Performed By: #### C BC #### [facility] [address] [place] [address] Dr. Nehemiah Lord LIVER PROFILEon 07-16-2022 Albumin [Mass/Vol] 3.5 g/dL Normal 3.4-5.0 [facility] Comment on above: Performed By: #### C BC #### [facility] [address] [place] [address] Dr. Nehemiah Lord Albumin/Globulin [Mass ratio] 0.8 {ratio} Normal [facility] Comment on above: Performed By: #### C BC #### [facility] [address] [place] [address] Dr. Nehemiah Lord ALP [Catalytic activity/Vol] 97 U/L Normal 46-116 [facility] Comment on above: Performed By: #### C BC #### [facility] [address] [place] [address] Dr. Nehemiah Lord ALT [Catalytic activity/Vol] 26 U/L Normal 14-59 [facility] Comment on above: Performed By: #### C BC #### [facility] [address] [place] [address] Dr. Nehemiah Lord AST [Catalytic activity/Vol] 36 U/L Normal 15-37 [facility] Comment on above: Performed By: #### C BC #### [facility] [address] [place] [address] Dr. Nehemiah Lord BILI, CONJUGATED 0.1 mg/dL Normal 0.0-0.2 [facility] Comment on above: Performed By: #### C BC #### [facility] [address] [place] [address] Dr. Nehemiah Lord Bilirubin [Mass/Vol] 0.3 mg/dL Normal 0.2-1.0 [facility] Comment on above: Performed By: #### C BC #### [facility] [address] [place] [address] Dr. Nehemiah Lord Globulin (S) [Mass/Vol] 4.4 g/dL Normal [facility] Comment on above: Performed By: #### C BC #### [facility] [address] [place] [address] [address] Nehemiah Lord Protein [Mass/Vol] 7.9 g/dL Normal 6.4-8.2 [facility] Comment on above: Performed By: #### C BC #### [facility] [address] [place] [address] Dr. Nehemiah Lord T4on 07-16-2022 T4 [Mass/Vol] 9.00 ug/dL Normal 4.80-13.90 [facility] Comment on above: Performed By: #### C BC #### [facility] [address] [place] [address] Dr. Nehemiah Lord TSHon 07-16-2022 TSH 1.758 uIU/mL Normal 0.358-3.740 [facility] Comment on above: Performed By: #### C BC #### [facility] [address] [place] [address] Dr. Nehemiah Lord VITAMIN D 25 OHon 07-16-2022 VIT D 25-OH 38.4 ng/mL Normal [facility] Comment on above: Performed By: #### ANA MARTIN #### [facility] [address] [place] [address] Dr. Nehemiah Lord VIT D RANGES SEE BELOW Normal [facility] Comment on above: Result Comment: <20 ng/mL Vit D deficient 20 - <30 ng/mL Vit D insufficient 30 - 100 ng/mL Vit D sufficient >100 ng/mL Potential Toxicity Performed By: #### ANA MARTIN #### [facility] [address] [place] [address] Dr. Nehemiah Lord BLOOD BANKOrdered By: David Aparicio on 06-15-2022 ABO/Rh Interp Positive Invalid Interpretation Code [facility] BB Subsection ABSC Gel Interp Negative (06/15/22 6:18 AM) Normal [facility] BB Subsection BLOOD BANKOrdered By: Vicki Bianchi on 05-28-2022 ABO/Rh Retype Interp Positive Invalid Interpretation Code [facility] BB Subsection CHEMISTRYOrdered By: SYSTEM SYSTEM on 05-28-2022 Anion gap [Moles/Vol] 12 mmol/L Normal 6 - 16 mEq/L F C Remisol Chloride [Moles/Vol] 101 mmol/L Normal 101 - 1 11 mmol/L FT Rem[facility] CO2 [Moles/Vol] 29 mmol/L Normal 21 - 31 mmol/L [facility] Creatinine [Mass/Vol] 0.8 mg/dL Normal 0.5 - 1.3 mg/dL [facility] GFR/1.73 sq M.predicted among blacks MDRD (S/P/Bld) [Vol rate/Area] mL/min/1.73 m2 Normal >=59mL/min/1. 73 m2 FT Chem S GFR/1.73 sq M.predicted among non-blacks MDRD (S/P/Bld) [Vol rate/Area] mL/min/1.73 m2 Normal >=59mL/min/1. 73 m2 [facility] Chem S Glucose [Mass/Vol] 91 mg/dL Normal 55 - 199 mg/dL [facility] Potassium [Moles/Vol] 3.8 mmol/L Normal 3.5 - 5.3 mmol/L [facility] Sodium [Moles/Vol] 138 mmol/L Normal 135 - 145 mmol/L [facility] Urea nitrogen [Mass/Vol] 22 mg/dL High 5 - 21 mg/dL [facility] HEMATOLOGYOrdered By: Vicki Bianchi on 05-28-2022 Erythrocyte distribution width (RBC) [Ratio] 13.9 % Normal 10.9 - 14.2 % [facility] Hematocrit (Bld) [Volume fraction] 38.4 % Normal 34.0 - 46.0 % [facility] Hemoglobin (Bld) [Mass/Vol] 12.5 g/dL Normal 12.0 - 16.0 gm/dL [facility] MCH (RBC) [Entitic mass] 29.6 pg Normal 27.0 - 34.0 pg [facility] MCHC (RBC) [Mass/Vol] 32.6 g/dL Normal 31.4 - 36.0 gm/dL [facility] MCV (RBC) [Entitic vol] 90.9 fL Normal 80.0 - 100.0 fL [facility] Platelet mean volume (Bld) [Entitic vol] 8.2 fL Normal 6.4 - 10.8 fL [facility] Platelets (Bld) [#/Vol] 238.0 E9/L Normal 150.0 - 500.0 E9/L [facility] RBC (Bld) [#/Vol] 4.2 E12/L Low 4.3 - 5.9 E12/L [facility] WBC corrected for nucl RBC Auto (Bld) [#/Vol] 3.4 E9/L Low 4.0 - 11.0 E9/L [facility] URINALYSISOrdered By: Naseem Lagos on 05-28-2022 Bilirubin Ql (U) Negative (05/28/22 8:07 AM) Normal Negative [facility] UA Auto SS Clarity (U) Clear (05/28/22 8:07 AM) Normal Clear [facility] UA Auto SS Color (U) Yellow (05/28/22 8:07 AM) Normal Yellow [facility] UA Auto SS Epithelial cells.squamous LM.HPF (Urine sed) [#/Area] 0-2 /HPF Normal 0-2/HPF [facility] UA Aut o SS Glucose Test strip (U) [Mass/Vol] Negative (05/28/22 8:07 AM) Normal Negative [facility] UA Auto SS Hemoglobin Ql (U) Trace *ABN* (05/28/22 8:07 AM) Invalid Interpretation Code Negative [facility] UA Auto SS Ketones (U) [Mass/Vol] Negative (05/28/22 8:07 AM) Normal Negative [facility] UA Auto SS [place].plasma/Lithiu m.RBC (Bld) [Mass ratio] 0-3 /HPF Normal 0-3/HPF [facility] UA Auto SS Nitrite Ql (U) Negative (05/28/22 8:07 AM) Normal Negative [facility] UA Auto SS pH (U) 7.0 *NA* (05/28/22 8:07 AM) Invalid Interpretation Code 5.0 - 9.0 [facility] UA Auto SS Protein (U) [Mass/Vol] Negative (05/28/22 8:07 AM) Normal Negative [facility] UA Auto SS Specific gravity (U) [Rel density] 1.015 *NA* (05/28/22 8:07 AM) Invalid Interpretation Code 1.005 - 1.030 [facility] UA Auto SS UA Spec Desc Clean Catch (05/28/22 8:07 AM) Normal [facility] UA Auto SS Urobilinogen Qn (U) [id number] {Sosa'U}/dL Normal 0.0 - 1.0 EU/dL [facility] UA Auto SS WBC Auto Ql (U) Negative (05/28/22 8:07 AM) Normal Negative [facility] UA Auto SS WBC LM.HPF (Urine sed) [#/Area] 0-5 /HPF Normal 0-5/HPF [facility] UA Auto SS SCREENING MAMMOGRAM W/STEFFI, BILATERAL*on 03-17-2022 SCREENING MAMMOGRAM W/STEFFI, BILATERAL* CLINICAL HISTORY: Screening Mammogram COMPARISON: Priors dating back to 2016. TECHNIQUE: 2D and 3D mammogram imaging of both breasts was performed. RESULT: DENSITY: There are scattered areas of fibroglandular density. There is no suspicious mass, asymmetry, architectural distortion, or calcification. No significant change since the prior mammograms. Bilateral implants, grossly unchanged. IMPRESSION: BIRADS 2 : BENIGN FINDINGS, NORMAL INTERVAL FOLLOW UP. FOLLOW-UP: 12 months DENSITY: Scattered MAMMOGRAPHY IS VERY IMPORTANT TO YOUR HEALTH. THE CURRENT [place] [employer] N[employer] GUIDELINES RECOMMENDS ANNUAL MAMMOGRAPHY BEGINNING AT AGE 41 THIS FACILITY USES A REMINDER SYSTEM TO ENSURE ALL PATIENTS RECEIVE REMINDER NOTIFICATIONS AT THE APPROPRIATE TIME BASED ON THE RECOMMENDATIONS OF THIS EXAM. Board Certified Radiologist. Accredited by the ACR and FDA. Report reported and signed by Florentino Mcgill on 03/17/2022 1412 Normal [facility] [employer] CHEMISTRYOrdered By: SYSTEM SYSTEM on 11-04-2021 Creatinine [Mass/Vol] 0.9 mg/dL Normal 0.5 - 1.3 mg/dL [facility] Remisol GFR/1.73 sq M.predicted among blacks MDRD (S/P/Bld) [Vol rate/Area] mL/min/1.73 m2 Normal >=59mL/min/1. 73 m2 [facility] Chem S GFR/1.73 sq M.predicted among non-blacks MDRD (S/P/Bld) [Vol rate/Area] mL/min/1.73 m2 Normal >=59mL/min/1. 73 m2 [facility] Chem S AMYLASEon 09-17-2021 Amylase [Catalytic activity/Vol] 81 U/L Normal 25-[address] [facility] Comment on above: Performed By: #### L IPA, CMP, LEELA #### [facility] [address] [address] [address] Nehemiah Lord CBC AUTO DIFFon 09-17-2021 BASO # 0.0 103/ul Normal 0.0-0.1 [facility] Comment on above: Performed By: #### C BC #### [facility] [address] [place] [address] Dr. Nehemiah Lord Basophils/100 WBC (Bld) 0.1 % Critically low 0.2-2.0 [facility] Comment on above: Performed By: #### C BC #### [facility] [address] [place] [address] Dr. Nehemiah Lord EO # 0.0 103/ul Normal 0.0-0.7 [facility] Comment on above: Performed By: #### C BC #### [facility] [address] [place] [address] Dr. Nehemiah Lord Eosinophils/100 WBC (Bld) 0.0 % Critically low 0.9-7.0 [facility] Comment on above: Performed By: #### C BC #### [facility] [address] [place] [address] Dr. Nehemiah Lord Erythrocyte distribution width (RBC) [Ratio] 12.6 % Normal 11.0-15.0 [facility] Comment on above: Performed By: #### C BC #### [facility] [address] [place] [address] Dr. Nehemiah Lord Hematocrit (Bld) [Volume fraction] 37.2 % Normal 36.0-48.0 [facility] Comment on above: Performed By: #### C BC #### [facility] [address] [place] [address] Dr. Nehemiah Lord Hemoglobin (Bld) [Mass/Vol] 12.1 g/dL Normal 12.0-16.0 [facility] Comment on above: Performed By: #### C BC #### [facility] [address] [place] [address] Dr. Nehemiah Lord IG # 0.04 10e3/ul Critically high 0.00-0.03 [facility] Comment on above: Performed By: #### C BC #### [facility] [address] [place] [address] Dr. Nehemiah Lord IG % 0.4 % Normal 0.0-0.5 [facility] Comment on above: Performed By: #### C BC #### [facility] [address] [place] [address] Dr. Nehemiah Lord LYMPH # 1.0 103/ul Critically low 1.2-3.8 [facility] Comment on above: Performed By: #### C BC #### [facility] [address] [place] [address] Dr. Nehemiah Lord Lymphocytes/100 WBC (Bld) 10.7 % Critically low 20.5-60.0 [facility] Comment on above: Performed By: #### C BC #### [facility] [address] [place] [address] Dr. Nehemiah Lord MANUAL DIFF REQ NO Normal [facility] Comment on above: Performed By: #### C BC #### [facility] [address] [place] [address] Dr. Nehemiah Lord MCH (RBC) [Entitic mass] 29.5 pg Normal 26.7-34.0 [facility] Comment on above: Performed By: #### C BC #### [facility] [address] [place] [address] Dr. Nehemiah Lord MCHC (RBC) [Mass/Vol] 32.5 g/dL Normal 29.9-35.2 [facility] Comment on above: Performed By: #### C BC #### [facility] [address] [place] [address] Dr. Nehemiah Lord MCV (RBC) [Entitic vol] 90.7 fL Normal 81.0-99.[address] [facility] Comment on above: Performed By: #### C BC #### [facility] [address] [place] [address] Dr. Nehemiah Lord MONO # 0.6 103/ul Normal 0.3-0.8 [facility] Comment on above: Performed By: #### C BC #### [facility] [address] [address] [address] Nehemiah Lord Monocytes/100 WBC (Bld) 6.2 % Normal 1.7-12.[address] [facility] Comment on above: Performed By: #### C BC #### [facility] [address] [address] [address] Nehemiah Lord NEUT # 7.9 103/ul Critically high 1.4-6.5 [facility] Comment on above: Performed By: #### C BC #### [facility] [address] [place] [address] Dr. Nehemiah Lord Neutrophils/100 WBC (Bld) 82.6 % Critically high 43.0-75.[address] [facility] Comment on above: Performed By: #### C BC #### [facility] [address] [place] [address] Dr. Nehemiah Lord Platelet mean volume (Bld) [Entitic vol] 9.7 fL Normal 9.5-13.[address] [facility] Comment on above: Performed By: #### C BC #### [facility] [address] [place] [address] Dr. Nehemiah Lord PLT 248 103/ul Normal 150-[address] [facility] Comment on above: Performed By: #### C BC #### [facility] [address] [place] [address] Dr. Nehemiah Lord RBC 4.10 106/ul Critically low 4.20-5.40 [facility] Comment on above: Performed By: #### C BC #### [facility] [address] [place] [address] Dr. Nehemiah Lord WBC 9.6 103/ul Normal 4.0-11.[address] [facility] Comment on above: Performed By: #### C BC #### [facility] [address] [place] [address] ABD/PELV W CONon 09-18-19 CT ABD/PELV W CON EXAMINATION: CT ABD/PELV W CON HISTORY: NAUSEA WITH VOMITING, UNSPECIFIED COMPARISON: CT pelvis 12/24/2020 TECHNIQUE: Helical CT of abdomen and pelvis with intravenous contrast Dose reduction techniques were achieved by using automated exposure control and/or adjustment of mA and/or kV according to patient size and/or use of iterative reconstruction technique. FINDINGS: TUBES AND IMPLANTS: Bilateral breast implants. Right total hip arthroplasty. LOWER CHEST: Small hiatal hernia ABDOMEN and PELVIS ABDOMINAL WALL AND SOFT TISSUES: Small fluid containing ventral hernia obscuring visualization. Right inguinal hernia containing a loop of small bowel with upstream dilatation. Increased fluid seen within the hernia sac when compared to the prior examination. BONES: Multilevel degenerative changes of the spine. Levoconvex scoliosis. 5 millimeters of anterolisthesis at L4-L5. Osteopenia. No suspicious lesions. ARTERIES: No aortic aneurysm. VEINS: Unremarkable. LYMPH NODES: Unremarkable. PERITONEUM/ RETROPERITONEUM: Small amount of pericholecystic fluid or gallbladder wall thickening. Trace ascites BOWEL: Small bowel obstruction with transition point seen at the level of the right inguinal hernia. Positive swirl sign. APPENDIX: Unremarkable LIVER: Periportal edema GALLBLADDER: No radiopaque stones. Gallbladder wall thickening or pericholecystic fluid. BILE DUCTS: Not dilated SPLEEN: Unremarkable. PANCREAS: Unremarkable. ADRENALS: Unremarkable. KIDNEYS/ URETERS: Unremarkable. REPRODUCTIVE ORGANS: Unremarkable URINARY BLADDER: Mildly filled IMPRESSION: Mechanical small bowel obstruction related to right inguinal hernia with small amount of free intraperitoneal fluid which may be reactive. Positive swirl sign with twisting of the mesentery. Nonspecific periportal edema. Gallbladder wall thickening or pericholecystic fluid. Right upper quadrant ultrasound can be considered as warranted. Small hiatal hernia. Other chronic findings as described above. Electronically authenticated by: BRANDON GARCIA Date: 2021-09-17 01:[address] [facility] Covid-19 PCR (CVD[facility])on 08-27 SARS-CoV-2 (COVID-19) RNA ZACK+probe Ql (Unsp spec) Detected Critically abnormal NOT DETECTED [facility] Comment on above: Result Comment: This test is not yet approved or cleared by the [place] FDA. When there are no FDA-approved or cleared tests available, and other criteria are met, FDA can make tests available under an emergency access mechanism called an Emergency Use Authorization (EUA). The EUA for this test is supported by the [place] of Health and Human Service's declaration that circumstances exist to justify the emergency use of in vitro diagnostics for the detection and/or diagnosis of the virus that causes COVID-19. This EUA will remain in effect for the duration of the COVID-19 declaration justifying emergency of IVDs, unless it is terminated or revoked by the FDA (after which the test may no longer be used). Performed By: #### C VDTB #### [facility] [address] [place] [address] Dr. Nehemiah Lord ER URINE PROFILEon 2 Bilirubin Ql (U) Negative Normal NEGATIVE [facility] Comment on above: Performed By: #### E CHANO UMICRO #### [facility] [address] [place] [address] Dr. Nehemiah Lord Clarity (U) CLEAR Normal CLEAR [facility] Comment on above: Performed By: #### Pierre MADDEN UMICRO #### [facility] [address] [place] [address] Dr. Nehemiah Lodr Color (U) YELLOW Normal YELLOW [facility] Comment on above: Performed By: #### E CHANO UMICRO #### [facility] [address] [place] [address] Dr. Nehemiah Lord ERUAHD A micrscopic examination will be performed if indicated. Normal [facility] Comment on above: Performed By: #### Pierre MADDEN UMICRO #### [facility] [address] [place] [address] Dr. Nehemiah Lord Glucose Ql (U) Negative Normal NEGATIVE [facility] Comment on above: Performed By: #### Pierre MADDEN UMICRO #### [facility] [address] [place] [address] Dr. Nehemiah Lord Hemoglobin Ql (U) SMALL Abnormal NEGATIVE [facility] Comment on above: Performed By: #### Pierre MADDEN UMICRO #### [facility] [address] [place] [address] Dr. Nehemiah Lord Ketones Ql (U) 15 mg/dl Abnormal NEGATIVE [facility] Comment on above: Performed By: #### Pierre MADDEN UMICRO #### [facility] [address] [place] [address] Dr. Nehemiah Lord LEUKOCYTES Negative Normal NEGATIVE [facility] Comment on above: Performed By: #### NETTIE MARTINRO #### [facility] [address] [place] [address] Dr. Nehemiah Lord Nitrite Ql (U) Negative Normal NEGATIVE [facility] Comment on above: Performed By: #### NETTIE MARTINRO #### [facility] [address] [place] [address] Dr. Nehemiah Lord pH (U) 6.0 [pH] Normal 5-9 [facility] Comment on above: Performed By: #### NETTIE MRATINRO #### [facility] [address] [place] [address] Dr. Nehemiah Lord SPEC GRAVITY 1.015 Normal 1.005-<=1.025 [facility] Comment on above: Performed By: #### NETTIE MARTINRO #### [facility] [address] [place] [address] Dr. Nehemiah Lord UA PROTEIN Negative Normal NEGATIVE/ TRACE [facility] Comment on above: Performed By: #### NETTIE MARTINRO #### [facility] [address] [place] [address] Dr. Nehemiah Lord UR MICRO IND INDICATED Normal [facility] Comment on above: Performed By: #### NETTIE MARTINRO #### [facility] [address] [place] [address] Dr. Nehemiah Lord Urobilinogen Qn (U) 0.2 {Sosa'U}/dL Normal 0.2 - 1. 0 [facility] Comment on above: Performed By: #### NAJMA MARTINICRO #### [facility] [address] [place] [address] Dr. Nehemiah Lord LACTATE/LACTIC ACIDon 2021 Lactate [Moles/Vol] 1.0 mmol/L Normal 0.4-1.9 [facility] Comment on above: Performed By: #### C BC #### [facility] [address] [place] [address] Dr. Nehemiah Lord LIPASEon 09-17-2021 Lipase [Catalytic activity/Vol] 114.0 U/L Normal 73.0-393.0 [facility] Comment on above: Performed By: #### L IPA, CMP, LEELA #### [facility] [address] [address] [address] Nehemiah Lord PROF 14(COMP METB)on 022 Albumin [Mass/Vol] 3.9 g/dL Normal 3.4-5.0 [facility] Comment on above: Performed By: #### L IPA, CMP, LEELA #### [facility] [address] [address] [address] Nehemiah Lord Albumin/Globulin [Mass ratio] 1.0 {ratio} Normal [facility] Comment on above: Performed By: #### L IPA, CMP, LEELA #### [facility] [address] [address] [address] Nehemiah Lord ALP [Catalytic activity/Vol] 81 U/L Normal 46-116 [facility] Comment on above: Performed By: #### L IPA, CMP, LEELA #### [facility] [address] [address] [address] Nehemiah Lord ALT [Catalytic activity/Vol] 26 U/L Normal 14-59 [facility] Comment on above: Performed By: #### L IPA, CMP, LEELA #### [facility] [address] [address] [address] Nehemiah Lord Anion gap [Moles/Vol] 12.3 mmol/L Normal [facility] Comment on above: Performed By: #### L IPA, CMP, LEELA #### [facility] [address] [address] [address] Nehemiah Lord AST [Catalytic activity/Vol] 32 U/L Normal 15-37 [facility] Comment on above: Performed By: #### L IPA, CMP, LEELA #### [facility] [address] [address] [address] Nehemiah Lord Bilirubin [Mass/Vol] 0.4 mg/dL Normal 0.2-1.0 [facility] Comment on above: Performed By: #### L IPA, CMP, LEELA #### [facility] [address] [address] [address] Nehemiah Lord Calcium [Mass/Vol] 9.2 mg/dL Normal 8.5-10.1 [facility] Comment on above: Performed By: #### L IPA, CMP, LEELA #### [facility] [address] [address] [address] Nehemiah Lord Chloride [Moles/Vol] 101 mmol/L Normal 98-107 [facility] Comment on above: Performed By: #### L IPA, CMP, LEELA #### [facility] [address] [address] [address] Nehemiah Lord CO2 [Moles/Vol] 27.5 mmol/L Normal 21.0-32.0 [facility] Comment on above: Performed By: #### L IPA, CMP, LEELA #### [facility] [address] [place] [address] Dr. Nehemiah Lord Creatinine [Mass/Vol] 0.88 mg/dL Normal 0.55-1.02 [facility] Comment on above: Performed By: #### L IPA, CMP, LEELA #### [facility] [address] [place] [address] Dr. Nehemiah Lord EGFR-AF [place] >60 Normal >=60 [facility] Comment on above: Performed By: #### L IPA, CMP, LEELA #### [facility] [address] [place] [address] Dr. Nehemiah Lord EGFR-NON AF [place] >60 Normal >=60 [facility] Comment on above: Performed By: #### L IPA, CMP, LEELA #### [facility] [address] [address] [address] Nehemiah Lord Globulin (S) [Mass/Vol] 4.0 g/dL Normal [facility] Comment on above: Performed By: #### L IPA, CMP, LEELA #### [facility] [address] [place] [address] Dr. Nehemiah Lord Glucose [Mass/Vol] 162 mg/dL Critically high 74-106 [facility] Comment on above: Performed By: #### L IPA, CMP, LEELA #### [facility] [address] [place] [address] Dr. Nehemiah Lord Potassium [Moles/Vol] 3.8 mmol/L Normal 3.5-5.1 [facility] Comment on above: Performed By: #### L IPA, CMP, LEELA #### [facility] [address] [place] [address] Dr. Nehemiah Lord Protein [Mass/Vol] 7.9 g/dL Normal 6.4-8.2 [facility] Comment on above: Performed By: #### L IPA, CMP, LEELA #### [facility] [address] [place] [address] Dr. Nehemiah Lord Sodium [Moles/Vol] 137 mmol/L Normal 136-145 [facility] Comment on above: Performed By: #### L IPA, CMP, LEELA #### [facility] [address] [place] [address] Dr. Nehemiah Lord Urea nitrogen [Mass/Vol] 22.0 mg/dL Critically high 7.0-18.0 [facility] Comment on above: Performed By: #### L IPA, CMP, LEELA #### [facility] [address] [place] [address] Dr. Nehemiah Lord Urea nitrogen/Creatinine [Mass ratio] 25.0 mg/mg Normal [facility] Comment on above: Performed By: #### L IPA, CMP, LEELA #### [facility] [address] [place] [address] Dr. Nehemiah Lord URINE MICROSCOPIC ONLYon BACTERIA NONE SEEN Normal NONE SEEN [facility] Comment on above: Performed By: #### ANA MARTIN #### [facility] [address] [place] [address] Dr. Nehemiah Lord Bacteria identified Cx Nom (U) NOT INDICATED Normal [facility] Comment on above: Performed By: #### NETTIE MARTINRO #### [facility] [address] [place] [address] Dr. Nehemiah Lord CAST NONE SEEN Normal NONE SEEN [facility] Comment on above: Performed By: #### E RUR, UMICRO #### [facility] [address] [place] [address] Dr. Nehemiah Lord Crystals LM Nom (Urine sed) NONE SEEN Normal NONE SEEN [facility] Comment on above: Performed By: #### E RUR, UMICRO #### [facility] [address] [place] [address] Dr. Nehemiah Lord Epithelial cells LM Ql (Urine sed) RARE Normal NONE SEEN /RARE [facility] Comment on above: Performed By: #### E RUR, UMICRO #### [facility] [address] [place] [address] Dr. Nehemiah Lord MUCOUS NONE SEEN Normal NONE SEEN [facility] Comment on above: Performed By: #### E RUR, UMICRO #### [facility] [address] [place] [address] Dr. Nehemiah Lord RBC 2-5 Abnormal 0-[address] [facility] Comment on above: Performed By: #### E RUR, UMICRO #### [facility] [address] [place] [address] Dr. Nehemiah Lord WBC 0-2 Abnormal NONE SEEN [facility] Comment on above: Performed By: #### E RUR, UMICRO #### [facility] [address] [place] [address] Dr. Nehemiah Lord Covid-19 PCR ([facility])on 08-26 SARS-CoV-2 (COVID-19) RNA ZACK+probe Ql (Unsp spec) Detected Critically abnormal NOT DETECTED [facility] Comment on above: Result Comment: This test is not yet approved or cleared by the [place] FDA. When there are no FDA-approved or cleared tests available, and other criteria are met, FDA can make tests available under an emergency access mechanism called an Emergency Use Authorization (EUA). The EUA for this test is supported by the [place] of Health and Human Service's (HHS's) declaration that circumstances exist to justify the emergency use of in vitro diagnostics for the detection and/or diagnosis of the virus that causes COVID-19. This EUA will remain in effect (meaning this test can be used) for the duration of the COVID-19 declaration justifying emergency of IVDs, unless it is terminated or revoked by FDA (after which the test may no longer be used). Performed By: #### C VDTB #### [facility] [address] [place] [address] Dr. Nehemiah Lord SYMPTOMATIC COVID-19 ANTIGEN on 09-11-2021 EUA Statement SEE BELOW Normal [facility] Comment on above: Result Comment: This test has not been FDA cleared or approved, but has been authorized by the FDA under an Emergency Use Authorization (EUA) for use by authorized laboratories certified under CLIA that meet the requirements to perform moderate or high complexity testing. This test has been authorized only for the detection of proteins from SARS-CoV-2, not for any other viruses or pathogens. The emergency use of this test is authorized for the duration of the declaration that circumstances exist justifying the authorization of emergency use of in vitro diagnostic tests for detection and/or diagnosis of Covid-19 under section 564(b)(1) of the Act, 21 U.S.C. 360bbb-3(b)(1), unless the declaration is terminated or authorization is revoked sooner. Performed By: #### C BC #### [facility] [address] [place] [address] Dr. Nehemiah Lord SARS-CoV-2 (COVID-19) RNA ZACK+probe Ql (Unsp spec) Negative Normal NEGATIVE [facility] Comment on above: Performed By: #### C BC #### [facility] [address] [place] [address] Dr. Nehemiah Lord CHEMISTRYOrdered By: SYSTEM SYSTEM on 08-26-2021 Anion gap [Moles/Vol] 13 mmol/L Normal 6 - 16 mEq/L [facility] Remisol Chloride [Moles/Vol] 102 mmol/L Normal 101 - 1 11 mmol/L [facility] Remisol CO2 [Moles/Vol] 25 mmol/L Normal 21 - 31 mmol/L [facility] Remisol Creatinine [Mass/Vol] 0.9 mg/dL Normal 0.5 - 1.3 mg/dL [facility] Remisol GFR/1.73 sq M.predicted among blacks MDRD (S/P/Bld) [Vol rate/Area] mL/min/1.73 m2 Normal >=59mL/min/1. 73 m2 [facility] Chem S GFR/1.73 sq M.predicted among non-blacks MDRD (S/P/Bld) [Vol rate/Area] mL/min/1.73 m2 Normal >=59mL/min/1. 73 m2 [facility] Chem S Glucose [Mass/Vol] 73 mg/dL Normal 55 - 199 mg/dL [facility] Potassium [Moles/Vol] 4.4 mmol/L Normal 3.5 - 5.3 mmol/L [facility] Remisol Sodium [Moles/Vol] 136 mmol/L Normal 135 - 145 mmol/L [facility] Urea nitrogen [Mass/Vol] 18 mg/dL Normal 5 - 21 mg/dL [facility] HEMATOLOGYOrdered By: Vivian garner on 08-26-2021 Erythrocyte distribution width (RBC) [Ratio] 13.2 % Normal 10.9 - 14.2 % [facility] Hematocrit (Bld) [Volume fraction] 35.7 % Normal 34.0 - 46.0 % [facility] Hemoglobin (Bld) [Mass/Vol] 12.1 g/dL Normal 12.0 - 16.0 gm/dL [facility] MCH (RBC) [Entitic mass] 29.7 pg Normal 27.0 - 34.0 pg [facility] MCHC (RBC) [Mass/Vol] 33.8 g/dL Normal 31.4 - 36.0 gm/dL [facility] MCV (RBC) [Entitic vol] 87.7 fL Normal 80.0 - 100.0 fL [facility] Platelet mean volume (Bld) [Entitic vol] 8.2 fL Normal 6.4 - 10.8 fL [facility] Platelets (Bld) [#/Vol] 220.0 E9/L Normal 150.0 - 500.0 E9/L [facility] RBC (Bld) [#/Vol] 4.1 E12/L Low 4.3 - 5.9 E12/L [facility] WBC corrected for nucl RBC Auto (Bld) [#/Vol] 4.3 E9/L Normal 4.0 - 11.0 E9/L [facility] Vital Signs Date Time Vital Sign Value Performing Clinician Elfego case 12-26-2023 10:29-0400 Body mass index (BMI) [Ratio] 25.42 kg/m2 Jordin Garcia MD Work Phone: [facility] 12-26-2023 10:29-0400 Body weight 63.05 kg Jordin Garcia MD Work Phone: [facility] 12-26-2023 10:29-0400 Diastolic blood pressure 74 mm[Hg] Jordin Garcia MD Work Phone: [facility] 12-26-2023 10:29-0400 Systolic blood pressure 118 mm[Hg] Jordin Garcia MD Work Phone: [facility] 08-03-2022 13:45-0400 Blood Pressure Location Ranjan GONZALEZL [facility] [place] 08-03-2022 13:45-0400 Diastolic blood pressure 98 mm[Hg] Ranjan NILL [facility] [place] 08-03-2022 13:45-0400 Heart rate 72 /min Ranjan NILL [facility] [place] 08-03-2022 13:45-0400 Respiratory rate 16 /min Ranjan NILL [facility] 08-03-2022 13:45-0400 Systolic blood pressure 142 mm[Hg] Ranjan GONZALEZL [facility] 06-15-2022 12:24-0400 Heart rate 66 /min Jacob Alvarez [facility] 06-15-2022 12:24-0400 SaO2% (BldA) [Mass fraction] 97 % Jacob Gonzalezos [facility] 06-15-2022 12:23-0400 Respiratory rate 18 /min Jacob Alvarez [facility] 06-15-2022 12:23-0400 Diastolic blood pressure 64 mm[Hg] Jacob Pocos [facility] 06-15-2022 12:23-0400 Mean blood pressure 79 mm[Hg] Jacob Pocos [facility] 06-15-2022 12:23-0400 Systolic blood pressure 110 mm[Hg] Jacob Pocos [facility] 06-15-2022 09:20-0400 Heart rate 84 /min Jacob Pocos [facility] 06-15-2022 09:20-0400 SaO2% (BldA) [Mass fraction] 91 % Jacob Pocos [facility] 06-15-2022 09:19-0400 Diastolic blood pressure 82 mm[Hg] Jacob Pocos [facility] 06-15-2022 09:19-0400 Mean blood pressure 112 mm[Hg] Jacob Pocos [facility] 06-15-2022 09:19-0400 Systolic blood pressure 172 mm[Hg] Jacob Pocos [facility] 06-15-2022 09:19-0400 Blood Pressure Location Jacob Pocos [facility] 06-15-2022 09:18-0400 Respiratory rate 18 /min Jacob Pocos [facility] 06-15-2022 09:15-0400 SaO2% (BldA) [Mass fraction] 91 % Jacob Pocos [facility] 06-15-2022 09:10-0400 Blood Pressure Location Jacob Pocos [facility] 06-15-2022 09:10-0400 Body temperature 97.7 [degF] Jacob Pocos [facility] 06-15-2022 09:10-0400 Diastolic blood pressure 89 mm[Hg] Jacob Pocos [facility] 06-15-2022 09:10-0400 Heart rate 78 /min Jacob Pocos [facility] 06-15-2022 09:10-0400 Mean blood pressure 103 mm[Hg] Jacob Pocos [facility] 06-15-2022 09:10-0400 Respiratory rate 14 /min Jacob Pocos [facility] 06-15-2022 09:10-0400 Systolic blood pressure 132 mm[Hg] Jacob Pocos [facility] 06-15-2022 09:00-0400 Mean blood pressure 102 mm[Hg] Jacob Pocos [facility] 06-15-2022 09:00-0400 Respiratory rate 8 /min Jacob Pocos [facility] 06-15-2022 08:55-0400 Mean blood pressure 104 mm[Hg] Jacob Pocos [facility] 06-15-2022 08:55-0400 Respiratory rate 17 /min Jacob Pocos [facility] 06-15-2022 08:45-0400 Body temperature 97.34 [degF] Jacob Pocos [facility] 06-15-2022 06:15-0400 Body temperature 97.52 [degF] Jacob Pocos [facility] 06-15-2022 06:15-0400 Heart rate 66 /min Jacob Pocos [facility] 06-15-2022 06:15-0400 Respiratory rate 20 /min Jacob Pocos [facility] 05-28-2022 07:57-0500 Diastolic blood pressure 88 mm[Hg] Jacob Pocos [facility] 05-28-2022 07:57-0500 Heart rate 73 /min Jacob Pocos [facility] 05-28-2022 07:57-0500 Mean blood pressure 108 mm[Hg] Jacob Pocos [facility] 05-28-2022 07:57-0500 Systolic blood pressure 148 mm[Hg] Jacob Pocos [facility] 05-28-2022 07:56-0500 Heart rate 63 /min Jacob Pocos [facility] 05-28-2022 07:56-0500 SaO2% (BldA) [Mass fraction] 99 % Jacob Pocos [facility] 05-28-2022 07:56-0500 Respiratory rate 16 /min Jacob Pocos [facility] 05-28-2022 07:56-0500 Diastolic blood pressure 90 mm[Hg] Jacob Pocos [facility] 05-28-2022 07:56-0500 Mean blood pressure 109 mm[Hg] Jacob Pocos [facility] 05-28-2022 07:56-0500 Systolic blood pressure 148 mm[Hg] Jacob Gonzalezos [facility] 11-25-2021 14:00-0400 Blood Pressure Location Martín Bourne [facility] 11-25-2021 14:00-0400 Diastolic blood pressure 76 mm[Hg] Martín Bourne [facility] 11-25-2021 14:00-0400 Heart rate 78 /min Martín Bourne [facility] 11-25-2021 14:00-0400 Respiratory rate 18 /min Martín Christofferson [facility] 11-25-2021 14:00-0400 SaO2% (BldA) [Mass fraction] 96 % Martín Christofferson [facility] 11-25-2021 14:00-0400 Systolic blood pressure 124 mm[Hg] Martín Christofferson [facility] 10-23-2021 11:09-0400 Blood Pressure Location Annalisesukhi WARREN [facility] 10-23-2021 11:09-0400 Diastolic blood pressure 76 mm[Hg] Annalisesukhi WARREN [facility] 10-23-2021 11:09-0400 Heart rate 70 /min Annalise WARREN [facility] 10-23-2021 11:09-0400 Respiratory rate 18 /min Annalisesukhi WARREN [facility] 10-23-2021 11:09-0400 SaO2% (BldA) [Mass fraction] 100 % Annalisesukhi WARREN [facility] 10-23-2021 11:09-0400 Systolic blood pressure 129 mm[Hg] Annalise WARREN [facility] 09-25-2021 11:47-0400 Blood Pressure Location Martín Christofferson [facility] 09-25-2021 11:47-0400 Diastolic blood pressure 67 mm[Hg] Martín Christofferson [facility] 09-25-2021 11:47-0400 Heart rate 60 /min Martín Christofferson [facility] 09-25-2021 11:47-0400 Respiratory rate 18 /min Martín Christofferson [facility] 09-25-2021 11:47-0400 SaO2% (BldA) [Mass fraction] 100 % Martín Steffen [facility] 09-25-2021 11:47-0400 Systolic blood pressure 132 mm[Hg] Martín Bourne [facility] 08-26-2021 15:28-0400 Diastolic blood pressure 80 mm[Hg] Ranjan NILL [facility] 08-26-2021 15:28-0400 Heart rate 68 /min Ranjan NILL [facility] 08-26-2021 15:28-0400 Mean blood pressure 97 mm[Hg] Ranjan NILL [facility] 08-26-2021 15:28-0400 SaO2% (BldA) [Mass fraction] 98 % Ranjan NILL [facility] 08-26-2021 15:28-0400 Systolic blood pressure 131 mm[Hg] Ranjan NILL [facility] 08-26-2021 15:28-0400 Blood Pressure Location Ranjan NILL [facility] 08-26-2021 15:28-0400 Body temperature 97.7 [degF] Ranjan NILL [facility] 08-26-2021 15:28-0400 Respiratory rate 16 /min Ranjan NILL [facility] 08-26-2021 15:27-0400 Diastolic blood pressure 86 mm[Hg] Ranjan NILL [facility] 08-26-2021 15:27-0400 Heart rate 68 /min Ranjan NILL [facility] 08-26-2021 15:27-0400 Mean blood pressure 105 mm[Hg] Ranjan NILL [facility] 08-26-2021 15:27-0400 SaO2% (BldA) [Mass fraction] 99 % Ranjan NILL [facility] 08-26-2021 15:27-0400 Systolic blood pressure 142 mm[Hg] Ranjan NILL [facility] 08-26-2021 15:27-0400 Blood Pressure Location Ranjan NILL [facility] 08-14-2021 15:15-0400 Blood Pressure Location Ranjan NILL [facility] [place] 08-14-2021 15:15-0400 Diastolic blood pressure 78 mm[Hg] Ranjan NILL [facility] [place] 08-14-2021 15:15-0400 Heart rate 68 /min Ranjan NILL [facility] [place] 08-14-2021 15:15-0400 Respiratory rate 16 /min Ranjan NILL [facility] [place] 08-14-2021 15:15-0400 Systolic blood pressure 120 mm[Hg] Ranjan NILL [facility] Encounters Encounter Date Encounter Type Care Provider Facility Start: 03-27-2024 End: 03-27-2024 Orders Only Jordin Garcia MD Work Phone: [facility] Comment on above: Osteoporosis screeni ng (Primary Dx) Start: 03-23-2024 End: 03-23-2024 ambulatory JORDIN GARCIA Not Available Start: 02-08-2024 End: 02-08-2024 Bamboo flowsheet Belinda Ramirez [employer] L[employer] OPERATOR[employer] Work Phone: [facility] Start: 02-08-2024 End: 02-08-2024 Bamboo flowsheet Belinda Ramirez [employer] O[employer]ATOR[employer] Work Phone: [facility] Start: 02-08-2024 End: 02-08-2024 Office outpatient new 30 minutes Belinda Ramirez [employer] L[employer] OPERATOR[employer] Work Phone: [facility] Comment on above: Lentigines (Primary Dx); Actinic keratosis Start: 02-08-2024 End: 02-08-2024 ambulatory BELINDA RAMIREZ Not Available Start: 12-29-2023 End: 12-29-2023 Telephone encounter Jacob Alvarez DO Work Phone: [facility] Start: 12-26-2023 End: 12-26-2023 Patient encounter procedure Jordin Garcia MD Work Phone: [facility] Comment on above: Postmenopausal atrop hic vaginitis (Primary Dx); Encounter for gynecological examination without abnormal finding; Screening for malignant neoplasm of cervix; Encounter for screening mammogram for malignant neoplasm of breast; Postmenopause; Osteoporosis, post-menopausal ([facility]) Start: 12-26-2023 End: 12-26-2023 Patient encounter status Jordin Garcia MD Work Phone: [facility] Start: 12-26-2023 End: 12-26-2023 ambulatory JORDIN GARCIA Not Available Start: 08-09-2023 ambulatory Ranjan PEDERSEN Facility : [facility] Start: 07-06-2023 End: 07-06-2023 ambulatory JACOB ALVAREZ Not Available Start: 08-03-2022 End: 08-03-2022 Patient encounter procedure Ranjan PEDERSEN General Surgery [facility] Start: 07-17-2022 End: 07-17-[address] MARILEE MORA . Facility:[facility] Start: 07-16-2022 End: 07-17-[address] MARILEE MORA . Facility:[facility] Start: 06-15-2022 End: 06-15-2022 Admission to same day surgery center Jacob Alvarez [facility] Start: 05-28-2022 End: 05-28-2022 Patient encounter procedure Jacob Alvarez [facility] Start: 11-25-2021 End: 11-25-2021 Patient encounter procedure Martín Bourne [facility] Start: 11-04-2021 End: 11-04-2021 Patient encounter procedure Annalise WARREN [facility] Start: 10-23-2021 End: 10-23-2021 Patient encounter procedure Annalise WARREN [facility] Start: 10-09-2021 End: 10-09-2021 Patient encounter procedure Annalise WARREN [facility] Start: 10-05-2021 End: 10-05-2021 Patient encounter procedure Annalise WARREN [facility] Start: 09-25-2021 End: 09-25-2021 Patient encounter procedure Ranjan PEDERSEN General Surgery Nill/Philipp Patel Start: 09-25-2021 End: 09-25-2021 Patient encounter procedure Martín Bourne [facility] Start: 09-17-2021 End: 09-17-2021 Evaluation and management of inpatient DR MARILEE MORA . Facility:[facility] Start: 09-11-2021 End: 09-11-[address] MARILEE MORA . Facility:[facility] Start: 09-11-2021 End: 09-11-[address] MARILEE MORA . Facility:[facility] Start: 08-28-[address] MARILEE MORA . Facili ty:[facility] Start: 08-26-2021 ambulatory Facility:1 [id number] Start: 08-26-2021 End: 08-26-2021 Patient encounter procedure Ranjan GONZALEZFaith [facility] Start: 08-17-2021 End: 10-02-2021 Pre-admission assessment Ranjan GONZALEZL [facility] Start: 08-14-2021 End: 08-14-2021 Patient encounter procedure Ranjan PEDERSEN General Surgery N[facility]/Said [facility] Procedures Date Procedure Procedure Detail Performing Clinician Start: 03-23-2024 Mammography Jordin elise MD Work Phone: Start: 02-08-2024 CRYOTHERAPY SKIN LESION Belinda Ramirez [employer] L[employer] OPERATOR[employer] Work Phone: Start: 03-18-2023 Mammography Jacob Poco s DO Work Phone: Start: 06-15-2022 Arthroplasty of knee Da vid Pocos Start: 09-17-2021 Supplement Right Fem oral Region with Synthetic Substitute, Open Approach DR MARILEE MORA . Start: 09-17-2021 Repair of right femo ral hernia Martín Bourne Start: 01-05-2019 Repair of hip Ranjan N ILL Start: 10-30-2014 Colonoscopy Jacob Poco s DO Work Phone: Start: 10-30-2014 Colonoscopy Ranjan NI LL Arthroplasty of knee Ranjan NILL Augmentation mammoplasty Shahid hael NILL Ligation of fallopia n tube Ranjan NILL Plan of Treatment Date Care Activity Detail Author Start: 03-23-2025 Screening for malign ant neoplasm of breast Mammogram [facility] Start: 02-07-2025 End: 02-07-2025 Patient encounter procedure 02/07/2025 9:35 AM EST Office Visit [facility] [address] [place] [id number] Belinda Ramirez, [employer] LIFT OPERATOR-[employer] [address] [place] [address] [facility] Start: 10-30-2024 Screening for malign ant neoplasm of colon [facility] Start: 03-23-2024 End: 03-23-2024 Professional / ancillary services management [facility] [place] Start: 03-19-2024 End: 02-24-2025 DBT Breast - bilateral screening Bilateral screening mammogram with tomosynthesis Imaging Routine Encounter for screening mammogram for malignant neoplasm of breast Expected: 03/19/2024, Expires: 02/24/2025 [facility] Work Phone: Comment on above: Expected: 03/19/2024 , Expires: 02/24/2025 Start: 03-18-2024 Screening for malign ant neoplasm of breast Mammogram [facility] Start: 12-26-2023 End: 12-25-2024 DXA Skeletal system Views for bone density DEXA bone density Imaging Routine Osteoporosis, post-menopausal ([facility]) Expected: 12/26/2023, Expires: 12/25/2024 [facility] Comment on above: Expected: 12/26/2023 , Expires: 12/25/2024 Start: 11-27-2023 Influenza vaccination Influenza Vacc ine (#1) [facility] Start: 2021 Pneumococcal Vaccine : 65+ Years (1 of 1 - PCV) Pneumococcal Vaccine: 65+ Years (1 of 1 - PCV) [facility] Start: 1955 Screening for malign ant neoplasm of colon [facility] Immunizations Immunization Date Immunization Notes Care Provider Fa cility 12-25-2020 SARS-CoV-2 (COVID-19 ) mRNA BNT-162b2 jose manuel PEDERSEN [facility] [place] Comment on above: Result Comment: 2022: [id number] 12-04-2020 SARS-CoV-2 (COVID-19 ) mRNA BNT-162b2 jose manuel PEDERSEN General Surgery [place] Comment on above: Result Comment: 2022: [id number] Payers Date Payer Category Payer Private Health Insurance [facility] [id number] 2022 Unknown [facility] [id number] 2022-Present [address] [facility] [place] [address] [id number] 2021 Medicare [id number] 1959 Medicare [id number] 1959 Self-pay 1959 Unknown [id number] 1955 Unknown [id number] [id number]. 2.356 1956 Unknown [id number] [id number]. 2.593 1956 Unknown [id number] 2.16.840.1.810293.3.579. 2.593 1956 Unknown [id number] 2.16.840.1.224649.3.579. 2.593 1956 Unknown [id number] 2.16.840.1.580168.3.579. 2.593 1956 Unknown [id number] 2.16.840.1.373776.3.579. 2.593 1956 Unknown [id number] 2.16.840.1.777751.3.579. 2.593 1956 Unknown [id number] 2.16.840.1.637813.3.579. 2.1259 1956 Unknown [id number] 2.16.840.1.927850.3.579. 2.1259 1956 Unknown [id number] 2.16.840.1.856760.3.579. 2.1259 1956 Unknown [id number] 2.16.840.1.071291.3.579. 2.1259 1956 Unknown [id number] 2.16.840.1.880437.3.579. 2.1259 1956 Unknown [id number] 2.16.840.1.947777.3.579. 2.1259 1956 Unknown [id number] 2.16.840.1.912885.3.579. 2.1259 1956 Unknown [id number] [id number]. 2.727 Social History Date Type Detail Facility Start: 08-14-2021 End: 12-26-2023 Tobacco smoking status Ex-smoker (finding) [facility] Tobacco smoking status Never [facility] Start: 12-26-2023 End: 02-08-2024 Sex Assigned At Female [facility] Start: 01-05-1976 End: 03-28-1983 History of tobacco use Current smoker [facility] Start: 01-05-1976 End: 03-28-1983 History of tobacco use Cigarette Smoker [facility] Start: 12-26-2023 End: 02-08-2024 Cigarettes smoked current (pack per day) - Reported 0.5 [facility] Start: 12-26-2023 Tobacco use and exposure Smokeless tobacco non-user [facility] Start: 12-26-2023 End: 02-08-2024 Alcoholic beverage intake Ex-drinker (finding) [facility] Start: 12-27-2022 Tobacco Comment I quit many times,seldom smoked more than 1/2 pack [facility] Start: 09-25-2022 Alcohol Comment caffeine: 1-2 cups per day, coffee/tea [facility] Start: 1955 Sex assigned at Female N [facility] [place] [facility] Start: 09-14-2022 Gender identity Identifies as female gender (finding) [facility] Medical Equipment Procedure Code Equipment Code Equipment Origin al Text Equipment Identifier Dates KNEE TOTAL ROBOT ARTHROPLASTY Pocos DO, Jacob Jean Baptiste 06/15/22 Unknown Knee R FDA Start: 06-15-2022 KNEE TOTAL ROBOT ARTHROPLASTY Pocos DO, Jacob Jean Baptiste 06/15/22 Unknown Knee R FDA Start: 06-15-2022 KNEE TOTAL ROBOT ARTHROPLASTY Pocos DO, Jacob Jean Baptiste 06/15/22 Unknown Knee R FDA Start: 06-15-2022 KNEE TOTAL ROBOT ARTHROPLASTY Pocos DO, Jacob Jean Baptiste 06/15/22 Unknown Knee R FDA Start: 06-15-2022 KNEE TOTAL ROBOT ARTHROPLASTY Pocos DO, Jacob Jean Baptiste 06/15/22 Unknown Knee R FDA Start: 06-15-2022 KNEE TOTAL ROBOT ARTHROPLASTY Pocos DO, Jacob Jean Baptiste 06/15/22 Unknown Knee R FDA Start: 06-15-2022 KNEE TOTAL ROBOT ARTHROPLASTY Pocos DO, Jacob Jean Baptitse 06/15/22 Unknown Knee R FDA Start: 06-15-2022 KNEE TOTAL ROBOT ARTHROPLASTY Pocos DO, Jacob Jean Baptiste 06/15/22 Unknown Knee R FDA Start: 06-15-2022 Functional Status Date Assessment Result Facility 08-03-2022 Functional Status N/A [facility] neela Patel 05-28-2022 Functional Status No [facility] 11-25-2021 Functional Status N/A [facility] 10-23-2021 Functional Status N/A [facility] 09-25-2021 Functional Status N/A [facility] Clinical Notes 09-17-2021 to 03-27-2024 Jordin Garcia MD - 03/27/2024 5:54 PM ESTNatalipierre Ita Ramirez ROSS LIFT OPERATOR-PATTERNMAK[employer] - 02/08/2024 9:35 AM ESTTelephone Encounter - Shara Cuadra - 12/29/2023 3:00 PM EDTPerik Garcia MD - 12/26/2023 10:30 AM EDT Note Date & Type Note Facility 03-27-2024 History of Presen t illness Narrative osteoporosis documented in this encounter [facility] 02-08-2024 History of Presen t illness Narrative Lesions: Location: right cheek Duration: 1 year Quality: denies pain, denies itch Associated symptoms: red, rough Treatments: none Lesion # 2: Location: face Duration: years Quality: denies pain, denies itch Associated symptoms: darkening Treatments: OTC fading cream- did not help, uses sunscreen regularly New patient All pertinent medical history, medications, and allergies were reviewed. General Exam: alert, oriented to person, place, and time, normal affect, well appearing Unaccompanied A focused exam completed based on patient reported problems, see below: 1. Lentigines Head - Anterior (Face) Scattered sidhu macules in sun-exposed areas. The patient was informed that lentigines are benign pigmented lesions that occur on sun-exposed and sun-damaged skin. No treatment is necessary. Recommended regular use of broad spectrum sunscreen SPF 30 or higher. Start Altreno lotion. Instructed on use of prescribed medication. Discussed referral to Dr. Huddleston for possible laser. Patient wishes to proceed with referral. Tretinoin (Altreno) 0.05 % lotion - Head - Anterior (Face) Apply thin layer to face at bedtime Ambulatory referral to Plastic Surgery - Head - Anterior (Face) 2. Actinic keratosis (8) Glabella, Left Forehead, Left Zygomatic Area, Mid Forehead (2), Right Malar Cheek (2), Right Congregation Erythematous scaly papules Patient was counseled regarding these sun-induced growths that can develop into squamous cell carcinoma if left untreated. Discussed treatment with cryotherapy. It was emphasized that any treated lesions that fail to resolve should be re-evaluated. Cryotherapy performed today; see procedure note Diagnosis: Actinic keratosis Indication: Precancerous Location: see skin exam Consent: Verbal consent was obtained and risks were discussed, including, but not limited to risks of scarring, darker or medical concierge pigmentary changes, recurrence, incomplete removal and infection. Method: Liquid nitrogen was used to treat the lesion(s) with two 5-10 second freeze-thaw cycles. Number of lesions treated: 8 Post-procedure instructions: Instructions were given orally and in writing. The office will be contacted if the lesion fails to resolve despite treatment, or if a side effect develops such as abnormal crusting, scabbing, redness or tenderness Cryotherapy, skin lesion - Glabella, Left Forehead, Left Zygomatic Area, Mid Forehead (2), Right Malar Cheek (2), Right Congregation Next Visit: 6 months-1 year for FBSE documented in this encounter [facility] 12-29-2023 Miscellaneous Notes Formattin g of this note might be different from the original. Was wanting a referral to a new Dermatology place, [facility] is not working out, said [facility] would give her a name for someone new. documented in this encounter [facility] 12-29-2023 Telephone encount er Note Was wanting a referral to a new Dermatology place, [facility] is not working out, said [facility] would give her a name for someone new. [facility] 12-26-2023 History of Presen t illness Narrative Images from the original note were not included. 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 HENT: Negative. Eyes: Negative. Respiratory: Negative. Cardiovascular: Negative. Gastrointestinal: Negative. Endocrine: Negative. Genitourinary: Negative. Musculoskeletal: Negative. Skin: Negative. Allergic/Immunologic: Negative. Neurological: Negative. Hematological: Negative. Psychiatric/Behavioral: Negative. No Known Allergies Current Outpatient Medications: b complex vitamins capsule, Take 1 capsule by mouth in the morning., Disp: , Rfl: Calcium Carb-Cholecalciferol (CALCIUM 1000 + D PO), , Disp: , Rfl: cephalexin (Keflex) 500 MG capsule, Take all 4 capsules one hour before the procedure., Disp: 4 capsule, Rfl: 0 citalopram (CeleXA) 10 MG tablet, TAKE 1 TAB BY MOUTH EVERY DAY, Disp: , Rfl: multivitamin (Theragran) tablet, Take 1 tablet by mouth in the morning., Disp: , Rfl: raloxifene (Evista) 60 MG tablet, TAKE 1 TABLET BY MOUTH EVERY DAY, Disp: 90 tablet, Rfl: 2 simvastatin (Zocor) 20 MG tablet, Take 20 mg by mouth in the morning., Disp: , Rfl: Turmeric (QC Tumeric Complex) 500 MG capsule, Tumeric, Disp: , Rfl: Past Medical History: Diagnosis Date Ankle sprain 2006 Arthritis 10/2022 Bunion 2012 H/O breast augmentation Hammer toe 20?? History of bilateral tubal ligation Spinal stenosis 20?? Status post epidural steroid injection Tear of meniscus of knee 2011 Past Surgical History: Procedure Laterality Date FEMINIZING AUGMENTATION MAMMOPLASTY 2000 HERNIA REPAIR 2021 bowel HIP ARTHROPLASTY Right 2019 KNEE ARTHROPLASTY Right 06/15/2022 [facility] TOTAL KNEE ARTHROPLASTY Left 07/2014 TOTAL KNEE ARTHROPLASTY Right 06/15/2022 VAGINAL DELIVERY x3 Family History Problem Relation Name Age of Onset Heart disease Mother Mental illness Mother Heart disease Father Dad Stroke Father Dad Osteoporosis Father Dad Heart disease Maternal Grandmother Mental illness Maternal Grandfather Diabetes Paternal Grandmother Lachelle Leonard Heart disease Sibling Brain cancer Father's Brother Fredy Cancer Father's Brother Fredy Social History Tobacco Use Smoking Status Former Current packs/day: 0.00 Average packs/day: 0.5 packs/day for 8.0 years (4.0 ttl pk-yrs) Types: Cigarettes Start date: 01/05/1976 Quit date: 03/28/1983 Years since quittin.7 Smokeless Tobacco Never Tobacco Comments I quit many times,seldom smoked more than 1/2 pack Physical Exam - General appearance, mentation, extraocular movements, facial strength and movement, hearing, upper and lower extremity strength and tone, sensation to gross testing, coordination, and gait are normal or at baseline unless noted below. Physical Exam Constitutional: Appearance: Normal appearance. Genitourinary: Right Labia: No rash. Left Labia: No rash. Right Adnexa: no mass present. Left Adnexa: no mass present. No cervical lesion. Uterus is anteverted. Breasts: Right: Normal. No mass or nipple discharge. Left: Normal. No mass or nipple discharge. HENT: Head: Normocephalic and atraumatic. Cardiovascular: Rate and Rhythm: Normal rate and regular rhythm. Pulmonary: Breath sounds: Normal breath sounds. Abdominal: General: There is no distension. Palpations: Abdomen is soft. There is no mass. Tenderness: There is no abdominal tenderness. Musculoskeletal: General: Normal range of motion. Cervical back: Neck supple. Lymphadenopathy: Cervical: No cervical adenopathy. Neurological: Mental Status: She is alert and oriented to person, place, and time. Skin: General: Skin is warm and dry. Psychiatric: Mood and Affect: Mood normal. Behavior: Behavior normal. implants Assessment/Plan ICD-10-CM 1. Encounter for gynecological examination without abnormal finding Z01.419 2. Screening for malignant neoplasm of cervix Z12.4 3. Encounter for screening mammogram for malignant neoplasm of breast Z12.31 4. Postmenopause Z78.0 Rosalind was seen today for gynecologic exam. Diagnoses and all orders for this visit: Postmenopausal atrophic vaginitis (Primary) Encounter for gynecological examination without abnormal finding Screening for malignant neoplasm of cervix Encounter for screening mammogram for malignant neoplasm of breast - Bilateral screening mammogram with tomosynthesis; Future Postmenopause Osteoporosis, post-menopausal (CMS/HCC) - DEXA bone density; Future Pap and exam performed. Mammogram and Dexa ordered Results can be found in MyChart in 7 days Bone health discussed Return 1 year/prn DHEAS cream for vaginal atrophy documented in this encounter [facility] 06-15-2022 Evaluation + Plan note Extrac catalina from: Title:CSB post op Author:Duglas Hemphill MD Date:06/15/22 Plan Transfer/Discharge: Transfer/Discharge Discharge when meets criteria ( To home ). Extracted from: Title:EDWIGE GA Author:Duglas Hemphill MD Date:06/15/22 Plan [place] [employer]esthesiologists (ASA) physical status classification: Class II. Anesthetic Preoperative Plan: Anesthesia General. [facility]03-21-2023 Hospital Discharge instructions Patient Education 06/15/2022 09:33:41 How to Use an Incentive Spirometer How To Use an Incentive Spirometer An incentive spirometer is a tool that measures how well you are filling your lungs with each breath. Learning to take long, deep breaths using this tool can help you keep your lungs clear and active. This may help to reverse or lessen your chance of developing breathing (pulmonary) problems, especially infection. You may be asked to use a spirometer: After a surgery. If you have a lung problem or a history of smoking. After a long period of time when you have been unable to move or be active. If the spirometer includes an indicator to show the highest number that you have reached, your health care provider or respiratory therapist will help you set a goal. Keep a list (log) of your progress as told by your health care provider. What are the risks? Breathing too quickly may cause dizziness or cause you to pass out. Take your time so you do not get dizzy or light-headed. If you are in pain, you may need to take pain medicine before doing incentive spirometry. It is harder to take a deep breath if you are having pain. How to use your incentive spirometer 1.Sit up on the edge of your bed or on a chair. 2.Hold the incentive spirometer so that it is in an upright position. 3.Before you use the spirometer, breathe out normally. 4.Place the mouthpiece in your mouth. Make sure your lips are closed tightly around it. 5.Breathe in slowly and as deeply as you can through your mouth, causing the piston or the ball to rise toward the top of the chamber. 6.Hold your breath for 3 5 seconds, or for as long as possible. If the spirometer includes a high school football coach indicator, use this to guide you in breathing. Slow down your breathing if the indicator goes above the marked areas. 7.Remove the mouthpiece from your mouth and breathe out normally. The piston or ball will return tothe bottom of the chamber. 8.Rest for a few seconds, then repeat the steps 10 or more times. Take your time and take a few normal breaths between deep breaths so that you do not get dizzy or light-headed. Do this every 1 2 hours when you are awake. 9.If the spirometer includes a goal marker to show the highest number you have reached (best effort), use this as a goal to work toward during each repetition. 10.After each set of 10 deep breaths, cough a few times. This will help to make sure that your lungs are clear. If you have an incision on your chest or abdomen from surgery, place a pillow or a rolled-up towel firmly against the incision when you cough. This can help to reduce pain from coughing. General tips When you become able to get out of bed, walk around often and continue to cough to help clear your lungs. Keep using the incentive spirometer until your health care provider says it is okay to stop using it. If you have been in the hospital, you may be told to keep using the spirometer at home. Contact a health care provider if: You are having difficulty using the spirometer. You have trouble using the spirometer as often as instructed. Your pain medicine is not giving enough relief for you to use the spirometer as told. You have a fever. You develop shortness of breath. Get help right away if: You develop a cough with bloody mucus from the lungs (bloody sputum). You have fluid or blood coming from an incision site after you cough. Summary An incentive spirometer is a tool that can help you learn to take long, deep breaths to keep your lungs clear and active. You may be asked to use a spirometer after a surgery, if you have a lung problem or a history of smoking, or if you have been inactive for a long period of time. Use your incentive spirometer as instructed every 1 2 hours while you are awake. If you have an incision on your chest or abdomen, place a pillow or a rolled-up towel firmly against your incision when you cough. This will help to reduce pain. This information is not intended to replace advice given to you by your health care provider. Make sure you discuss any questions you have with your health care provider. Document Released: 07/25/2007 Document Revised: 04/06/2018 Document Reviewed: 01/25/2018 NowPublic Patient Education 2020 [employer]. 06/15/2022 09:33:41 Knee Cryocuff Patient Instructions - FT (CUSTOM) 06/15/2022 09:33:41 Post Op Patient Instructions - FT (CUSTOM) 06/08/2022 07:21:16 [place]os - Total Knee Arthroplasty. Revised 05/19/11. (Custom) [place], [place] [facility] DISCHARGE INSTRUCTIONS TOTAL KNEE ARTHROPLASTY INCISION CARE: Continue the daily dressing care to the knee as instructed in the hospital for 7 days postoperatively. The dressing will then be changed and worn an additional 7 days. You may then discontinue the dressing changes. Remove the dressing lower over the leg postoperative day #3 and leave this area opento the air. Please notify the office if any increase in redness, tenderness, drainage, fever, or wound separation is noted. Compression stockings may be helpful if any significant or uncomfortable swelling in the legs is noted postoperatively. Use and removal instructions should be given by physical therapy. If the swelling is below the knee, knee high compression stockings may suffice. If this does cause swelling into the thigh region, waist high compression stockings may be beneficial as well. These can be obtained from most pharmacies, or can be obtained from the hospital or through Home Health. The mild grade compression stockings are best used initially. You may need assistance when applying or removing the compression stockings. MEDICATIONS: You may resume your home medications at the time of discharge. Pain medication as ordered. You may take up to 3,000mg of acetaminophen (Tylenol) daily. Would suggest 650- 1,000mg three times daily. Cefadroxil (Duricef) as prescribed for 4 doses. Take 1 Ecotrin aspirin 81mg twice daily with food for the next month. Start with evening dose day of surgery. Pain medication has been prescribed as well. You may continue to use the pain medication every fourhours as needed. Any narcotic pain medication can cause side effects including stomach upset, constipation, or light-headedness. You should not drive or operate machinery, or use alcohol while using the narcotic pain medication. You should not use other pain medications with this prescription pain medication unless further directed by your physician. PHYSICAL THERAPY: Continue the range of motion and strengthening exercises initiated in Physical Therapy in the hospital. [facility] Discharge Instructions for TKAPage 2 Physical Therapy Cont. Continue weight bearing, as ordered, to the operated knee for four to six weeks as directed in Physical Therapy, or until your strength is improved and Physical Therapy will then allow you to progress to full weight. This will be with the use of a walker or crutches initially. After four or six weeks you may then progress to the use of one crutch, or a cane. A quad-cane is preferred as this is more stable. Physical therapy as begun in the hospital will continue at home, possible with the clinical data assistant of Home Health Physical Therapy or in the hospital as an outpatient. When you have become independent withthe physical therapy program, this will then be discontinued as a supervised program and you will be instructed to continue the physical therapy exercises at home. Your exercises are lee to successful rehabilitation. You should gain full extension first, hopefully before hospital discharge, then continue to do the exercises to maintain this, and gain 90 degreesflexion by one month post-op. Do the exercises daily, twice if preferred. DRIVING: Do NOT Drive FOLLOW-UP OFFICE VISIT: 4 weeks postop. Jacob Alvarez, DO [facility] [address] [place] [id number] [phone] Reviewed: 07-03 Revised 04/08 Follow Up Care 2022 09:14:20 With:Jacob Alvarez Address: [address] [place], [place] [id number]- [facility] (1) When:07/14/2022 10:15:00 [facility]07-01-2022 Hospital Discharge instructions Follow Up Care 09/25/2021 12:09:54 With:Martín Bourne MD Address: When: Unknown Comments:Call for sooner apt with new/worsening symptoms [facility]06-23-2022 NoteOPERATIVE NOTE OPERATION DATE: 09/17/2021 PREOPERATIVE DIAGNOSIS: Incarcerated right femoral hernia with bowel obstruction. POSTOPERATIVE DIAGNOSIS: Incarcerated right femoral hernia with bowel obstruction. PROCEDURE: Repair of right femoral hernia with mesh patch to the weakened inguinal floor. SURGEON: Ranjan Pedersen M.D. ANESTHESIA: General endotracheal as well as local with Exparel solution. SHUTTLE BUGGY OPERATOR: MARGARET Robins INDICATIONS AND CONSENT: Patient is a 66-year-old female with a five year history of an inguinal bulge that had been worked up and was felt to be of unclear etiology. I recently saw the patient in evaluation and thought it was the femoral hernia, just contained chronic hernia sac with some fluid. She was scheduled elective repair; however, this was rescheduled several times. She did have COVID a week ago after testing due to increased cough. She had previously been vaccinated. She did receive antibiotics and has been asymptomatic since that time, but did test positive again in the emergency room today. Earlier, last evening, after dinner, she developed pain and nausea and vomiting and increase in size in her hernia, so she presented to the emergency room late last night. Workup revealed evidence of a small bowel obstruction with a loop of small bowel caught within the femoral hernia, as well as the chronic fluid filled hernia sac. Indication, risks, benefits of proceeding with urgent herniorrhaphy, reduction of the small bowel, possible need for small bowel resection or laparotomy were explained extensively to the patient, including risks of bleeding, infection, scarring, pain, bowel or nerve injury, blood clot, pulmonary embolus, heart attack, anesthetic complications, recurrent hernia, need for further surgery or mesh removal. All of her questions were answered. Informed consent was obtained. PROCEDURE: Patient brought to the operating room, placed in the supine position. General anesthesia was induced. She was prepped and draped in the usual sterile fashion. An oblique right groin incision was made just above the area of the hernia and carried down through subcutaneous tissue using sharp dissection as well as electrocautery. Clay's fascia was divided. The external oblique was opened along the direction of its fibers, down through the external inguinal ring. There was noted to be no indirect sac. The small round ligament and nerve were divided and ligated. The floor of the inguinal canal was opened. Femora hernia was noted below the area of the inguinal ligament, very tight and edematous; therefore, the inguinal ligament was divided, which allowed reduction of the hernia. There was a chronic hernia sac that was scarred up, containing fluid and thickened peritoneum. Once this was fully mobilized, there was no bowel noted within it. However, through the base, once this hernia sac was opened up, we could see a loop of small bowel that had been in the hernia that was hemorrhagic but viable. The chronically scarred hernia sac with peritoneum was excised. The peritoneal defect was then closed with a 3-0 Vicryl suture. The wound was irrigated. There was good hemostasis. Inguinal ligament was re-approximated with 2-0 Prolene suture. Femoral defect was then closed using several 2-0 Prolene sutures by re-approximating part of the lower inguinal ligament and Santo's ligament to the lacunar ligament. Care was taken to avoid undue tension on the femoral vein. The space was obliterated. The wound was irrigated. There was good hemostasis. The floor of the inguinal canal was then closed with interrupted 3- 0 Vicryl sutures. A Bard 5 x 10 cm polypropylene mesh was then trimmed and placed in the floor of the inguinal canal. Due to the weakness of the tissues, it was then secured circumferentially using interrupted 3-0 Vicryl sutures. The external oblique was then closed using a running 3-0 Vicryl suture. The subcutaneous tissue was infiltrated with Exparel solution. Clay's fascia was re-approximated using interrupted 3-0 Monocryl suture. The skin was then closed with a running 4-0 subcuticular Monocryl suture and skin glue. Sterile pressure dressing was applied. Sponge and needle counts were correct x2 per nursing personnel. Patient tolerated procedure well, was extubated, sent to recovery room in good condition. CC: Marilee Mora M.D. [facility] Signed and Approved by: DR RANJAN PEDERSEN . 09/18/2021 12:52:00[facility]06-[facility] NoteHISTORY AND PHYSICAL EXAMINATION Date:09/17/2021 CHIEF COMPLAINT: Nausea, vomiting, abdominal pain, incarcerated inguinal/femoral hernia. HISTORY OF PRESENT ILLNESS: Patient is a 66-year-old female with history of osteoporosis. Reports that she was well until this evening, where she developed abdominal pain, nausea and vomiting after eating tacos for dinner. She presented to the emergency room for evaluation because her hernia was also more swollen. She was found to have evidence of a small bowel obstruction with a loop of small bowel within the hernia, which was likely femoral. She had been evaluated by myself in July for longstanding right groin bulge that she has had for approximately five years. She did have a hernia sac with just fluid within it, which was consistent on exam and by imaging with a femoral hernia, and she was scheduled for elective repair. She did develop a cough approximately a week ago, and had a COVID test which was positive. She did receive antibiotics. She had previously been vaccinated. She has been asymptomatic since that time. PAST SURGICAL HISTORY: Patient has past abdominal surgeries significant for tubal ligation. Past surgical history is also significant for bilateral augmentation mammoplasty, as well as a left knee replacement. ALLERGIES: Patient has no known drug allergies. HOME MEDICATIONS: Citalopram, multivitamin, raloxifene, simvastatin. SOCIAL HISTORY: Patient is . Reports occasional wine use several times per month. Former smoker but quit in 1984. REVIEW OF SYSTEMS: Ten system review of systems negative for recent weight loss or weight gain. She denies fever, chill or night sweats. Has had no bowel changes. PHYSICAL EXAM: Vital Signs: She is afebrile. Blood pressure is 164/85. Pulse is 50 and regular. Respiratory rate is 18. O2 saturation 96% on room air. General: She is a well developed, well nourished female, currently in no acute distress. HEENT: Normocephalic, atraumatic. Sclerae anicteric. Conjunctiva not injected. Oral mucosa is moist without lesions. Neck is supple. There is no adenopathy, thyromegaly or JVD. Lungs are clear bilaterally. Cardiac exam is regular rhythm and rate without appreciable murmurs, rubs or gallops. Abdomen is soft. There are hypoactive bowel sounds. Non-distended. There is approximately a 4 cm right inguinal bulge without skin changes or edema. Minimal tenderness. It is non-reducible. No other masses, hepatosplenomegaly or hernias appreciated. No CVA tenderness. Skin is warm and dry without lesions, rashes or ulcers. Neuro exam is non-focal, non-lateralizing. Patient is awake, alert and oriented with appropriate affect. LABORATORY EVALUATION: Revealed normal white blood cell count, slight decrease in her H AND H. Lactate is normal at 1. Electrolytes are unremarkable. IMAGING: CT scan was personally reviewed. ASSESSMENT: A 66-year-old female with long standing, likely femoral hernia, now with evidence of a small bowel obstruction from a loop of small intestine within the hernia sac which is non-reproducible. PLAN: Indications, risks, benefits, alternatives of proceeding with urgent release of the hernia and hernia repair explained extensively to the patient, including the risks of bleeding, infection, scarring, pain, nerve injury, bowel injury, need for bowel resection, need for possible laparotomy, risk of recurrent hernia, blood clot, pulmonary embolus, heart attack, anesthetic complications, worsening lung complications from the COVID 19. All of her questions were answered. Informed consent was obtained. CC: Marilee Mora M.D. [facility] Signed and Approved by: DR RANJAN PEDERSEN . 09/18/2021 12:[facility]00[facility] No data available for this section General Surgery [place] Evaluation + Plan note Future Appointments Appointment Date:09/03/2021 10:00:00 AM Scheduled Provider: Location:[facility] Future Appointments Appointment Date:10/05/2021 01:00:00 PM Scheduled Provider: Location[facility] Appointment Type:CV Stress (FT) Appointment Date:10/09/2021 02:00:00 PM Scheduled Provider:Ranjan PEDERSEN MD Location:[facility] Appointment Type: Post Op 15 Appointment Date:10/23/2021 11:00:00 AM Scheduled Provider:Annalise WARREN CNP Location[facility] Appointment Type:Cardiology Follow Up (FT) Future Scheduled Tests Radiology* Echo Transthoracic Complete 09/25/21 * ECG Stress [facility] Appointment Date:10/05/2021 01:00:00 PM Scheduled [facility]: [facility]:CV Stress (FT) Appointment Date:10/09/2021 02:00:00 PM Scheduled Provider:Ranjan PEDERSEN MD Location:[facility] Appointment Type: Post Op 15 Appointment Date:10/09/2021 03:00:00 PM Scheduled Provider: [facility] Type:CV Echo (FT) Appointment Date:10/23/2021 11:00:00 AM Scheduled Provider:Annalise WARREN CNP Location[facility] Appointment Type:Cardiology Follow Up (FT) Future Scheduled Tests Radiology* Echo Transthoracic Complete 10/09/21 * ECG Stress Exercise [facility] Future Appointments Appointment Date:10/09/2021 02:00:00 PM Scheduled Provider:Ranjan PEDERSEN MD Location:[facility] Appointment Type: Post Op 15 Appointment Date:10/09/2021 03:00:00 PM Scheduled Provider: [facility] Type:CV Echo (FT) Appointment Date:10/23/2021 11:00:00 AM Scheduled Provider:Annalise WARREN CNP [facility] Appointment Type:Cardiology Follow Up (FT) Future Scheduled Tests Radiology* Echo Transthoracic Complete 10/09/21 [facility] Future Appointments Appointment Date:10/23/2021 11:00:00 AM Scheduled Provider:Annalise WARREN CNP Location[facility] Appointment Type:Cardiology Follow Up (FT) General Surgery [place] Evaluation + Plan note Future Appointments Appointment Date:11/25/2021 02:00:00 PM Scheduled Provider:Martín Bourne MD Location:[facility] Appointment Type:Cardiology Follow Up (FT) Future Scheduled Tests Radiology* CTA Chest 10[facility]23/21 [facility] Future Appointments Appointment Date:11/25/2021 02:00:00 PM Scheduled Provider:Martín Bourne MD [facility] Appointment Type:Cardiology Follow Up (FT) [facility] Future Appointments Appointment Date:06/15/2022 07:30:00 AM Scheduled Provider: Location:[facility] Diagnosis Postmenopausal atrophic vaginitis- Primary Encounter for gynecological examination without abnormal finding Screening for malignant neoplasm of cervix Screening for malignant neoplasm of the cervix Encounter for screening mammogram for malignant neoplasm of breast Postmenopause Asymptomatic postmenopausal status (age-related) (natural) Osteoporosis, post-menopausal (CMS/HCC) Senile osteoporosis documented in this encounter [facility]* Diagnosis Lentigines- Primary Actinic keratosis documented in this encounter [facility]* Diagnosis Osteoporosis screening- Primary Special screening for osteoporosis documented in this encounter [facility] Discharge instructions No data available for this section General Surgery [place] Progress note No data available for this section [facility] Summary Purpose Family History No Family History Records FoundNo Family History Records FoundNo Family History Records FoundNo Family History Records FoundNo Family History Records Found Advance Directives No Advanced Directives Records FoundNo Advanced Directives Records FoundNo Advanced Directives Records FoundNo Advanced Directives Records FoundNo Advanced Directives Records Found Additional Source Comments Care Team (unrecognized sect ion and content) Systems Technologist Relationship Specialty Start Date End Date Marilee Mora MD [address] [place] [phone] PCP - General Family Medicine 09/15/22 Systems Technologist Relationship Specialty Start Date End Date Marilee Mora MD [address] [place] [phone] PCP - General Family Medicine 09/15/22 Systems Technologist Relationship Specialty [place] [address] [place] [phone] PCP - General Family Medicine 09/15/22 Systems Technologist Relationship Specialty Start Date End Date Marilee Mora MD [address] [facility] [place] [address] PCP - General Family Medicine 09/15/22 INFORMATION SOURCE (unrecogn ized section and content) DATE CREATED AUTHOR 12/30/2021 [facility] DATE CREATED AUTHOR AUTHOR'S ORGANIZ ATION 03/20/2022 [facility] DATE CREATED AUTHOR AUTHOR'S ORGANIZ ATION 07/23/2022 [facility] DATE CREATED AUTHOR AUTHOR'S ORGANIZ ATION 03/28/2024 [facility] EPIC DATE CREATED AUTHOR AUTHOR'S ORGANIZ ATION 07/21/2024 [facility] Reason for Visit (unrecogniz ed section and content) Reason Comments Gynecologic Exam Reason Comments Suspicious Skin Lesion FOR RECORDS PERTAINING TO PATIENTS WHO ARE OR HAVE BEEN ENROLLED IN A CHEMICAL DEPENDENCY/SUBSTANCEABUSE PROGRAM, SOME INFORMATION MAY BE OMITTED. This clinical summary was aggregated from multiple sources. Caution should be exercised in using it in the provision of clinical care. This summary normalizes information from multiple sources, and as a consequence, information in this document may materially change the coding, format and clinical context of patient data. In addition, data may be omitted in some cases. CLINICAL DECISIONS SHOULD BE BASED ON THE PRIMARY CLINICAL RECORDS. [facility] [employer] [facility]. provides no warranty or guarantee of the accuracy or completeness of information in this document.
[2024-10-22 10:00] LABS: Hematocrit 37.3 % (36.0-48.0); Hemoglobin 12.4 g/dL (12.0-16.0); Immature Granulocytes Abs Auto 0.01 10^3/uL (0.00-0.03); Immature Granulocytes Pct Auto 0.3 % (0.0-0.5); Lymphocytes Absolute Auto 1.0 10^3/uL (1.2-3.8); Mean Corpuscular HGB Conc 33.2 g/dL (29.9-35.2); Mean Corpuscular Hemoglobin 30.4 pg (26.7-34.0); Mean Corpuscular Volume 91.4 fL (81.0-99.0); Platelet Count 222 10^3/uL (150-450); Red Blood Count 4.08 10^6/uL (4.20-5.40); White Blood Count 3.5 10^3/uL (4.0-11.0)
[2024-10-22 10:31] LABS: Iron 108.0 ug/dL (50.0-170.0)
[2024-10-22 12:40] LABS: Alanine Aminotransferase 33 U/L (14-59); Albumin Globulin Ratio 0.9; Albumin Level 3.7 g/dL (3.4-5.0); Alkaline Phosphatase 84 U/L (46-116); Anion Gap 12.5; Aspartate Amino Transferase 42 U/L (15-37); Blood Urea Nitrogen 18.0 mg/dL (7.0-18.0); Calcium 9.3 mg/dL (8.5-10.1); Carbon Dioxide 28.9 mmol/L (21.0-32.0); Chloride 105 mmol/L (98-107); Cholesterol 196 mg/dL (<=200); Estimated GFR (African America >60 (>=60 mL/min/1.73m^2); Estimated GFR (Non-African Ame >60 (>=60 mL/min/1.73m^2); Free T3 2.44 pg/mL (2.18-3.98); Globulin 4.0 g/dL; Glucose 101 mg/dL (74-106); HDL Cholesterol 98 mg/dL (40-60); Magnesium 2.0 mg/dL (1.8-2.4); Potassium 4.4 mmol/L (3.5-5.1); Sodium 142 mmol/L (136-145); Thyroid Stimulating Hormone 1.670 uIU/mL (0.358-3.740); Total Protein 7.7 g/dL (6.4-8.2); Triglycerides 74 mg/dL (<=150); VLDL CHOLESTEROL 14.8 mg/dL
== END 2024-10-22 09:21 | disposition home or self-care (01) ==
PROVIDERS: PCP Family Medicine; Visit Provider Family Medicine
DX: K58.9 Irritable bowel syndrome, unspecified (principal); E61.2 Magnesium deficiency; J30.9 Allergic rhinitis, unspecified; M85.80 Other specified disorders of bone density and structure, unspecified site; E78.5 Hyperlipidemia, unspecified; R73.09 Other abnormal glucose; D64.9 Anemia, unspecified; R53.83 Other fatigue
CPT/HCPCS: 36415; 80053; 80061; 83036; 83540; 83735; 84436; 84443; 84481; 85025

== ENCOUNTER 2024-11-21 10:16 | Outpatient (OUT) | payer OTHER, SELFPAY ==
--- OUTSIDE RECORDS SUMMARY | 2024-09-12 04:27 | XMS_ITS ---
Author Organization The [facility] in [place] Address [address] [place] [address] Care Team Providers Care Marine Machinist Name Role Phone Vikram Mora Primary Care Provider [phone] REASON FOR VISIT Bronchitis Medications Medication SIG (Take, Route, Fr equency, Duration) Notes Start Date End Date Status Benzonatate 200 MG 1 capsule Orally Thr ee times a day for 7 days 09/12/2024 Active levoFLOXacin 500 MG 1 tablet Orally Once a day for 10 day(s) 09/12/2024 Active Encounters Encounter Location Date Provider Diagnosis [address] [address] 09/12/2024 Vikram Mora Plan Of Treatment Medication Medication Name Sig Start Date Stop Date Notes Benzonatate 200 MG 1 capsule Orally Thr ee times a day for 7 days 09/12/2024 levoFLOXacin 500 MG 1 tablet Orally Once a day for 10 day(s) 09/12/2024 Progress Notes * Colette VALENTEDOB:[birth year] (69 yo F)Acc No.[id number]:09/12/2024 Patient: Claudia Colette RON :1955 A ge:69 Y S ex:Female [address] [place], [address] * Refills Start levoFLOXacin Tablet, 500 MG, Orally, 10, 1 tablet, Once a day, 10 day(s) Start Benzonatate Capsule, 200 MG, Orally, 20 Capsule, 1 capsule, Three times a day, 7 days Subjective: * Chief Complaints: * B ronchitis * Medical History: * Surgical History: * Hospitalization/Major Diagno stic Procedure: * Medications: Objective: * Vitals: * Physical Examination: Assessment: Plan: * Treatment: * Procedure Codes: * true * Date: Generated for Elliott lazo/Refugio/Chesteritting on: 0 11/21/2024 10:19 AM EDT
--- OUTSIDE RECORDS SUMMARY | 2024-10-22 09:09 | XMS_ITS ---
Author Organization [facility] in [place] Address [address] [place] [address] Care Team Providers Care Patrol Supervisor Name Role Phone Vikram Mora Primary Care Provider REASON FOR VISIT review labs Problems Problem Type SNOMED Code ICD Code Onset Dates Problem Status W/U Status Risk Notes Problem White blood cell disorder (34133210) Abnormal white blood cell (WBC) count (D72.9) Active confirmed Encounters Encounter Location Date Provider Diagnosis [facility] [address] [place] [address] 10/22/2024 Vikram Mora Abnormal white blood cell (WBC) count D72.9 Assessments Encounter Date Diagnosis (ICD Code) Assessment Notes Treatment Notes Treatment Clinical Notes Section Notes 10/22/2024 Abnormal white blood cell (WBC) count (ICD-10 - D72.9) Plan Of Treatment Pending Test Test Name Order Date CBC AUTO DIFF 10/22/2024 Progress Notes * Colette VALENTEDOB:[birth year] (69 yo F)Acc No.[id number]:10/22/2024 Patient: Claudia Colette RON :1955 A ge:69 Y S ex:Female Address:[address] [place], [address] Subjective: * Chief Complaints: * R eview labs * Medical History: * Surgical History: * Hospitalization/Major Diagno stic Procedure: * Medications: Objective: * Vitals: * Physical Examination: Assessment: * Assessment: 1. A bnormal white blood cell (WBC) count - D72.9 (Primary) Plan: * Treatment: * Procedure Codes: * true * Date: Generated for Elliott lazo/Refugio/Jason on: 0 11/21/2024 10:19 AM EDT
--- OUTSIDE RECORDS SUMMARY | 2024-11-21 10:19 | XMS_ITS | Clinical Summary ---
Author Organization [facility] Address [address] [place] [address] Care Team Providers Care Cia Agent Name Role Phone Evin Mora MD Primary Care Provider [phone] [phone] No known active allergies Medications citalopram (CeleXA) 10 MG tablet TAKE 1 TAB BY MOUTH EVERY DAY 3 Active simvastatin (Zocor) 20 MG tablet Take 20 mg by mouth in the morning. Active multivitamin (Theragran) tablet Take 1 tablet by mouth in the morning. Active b complex vitamins capsule Take 1 capsule by mouth in the morning. Active Turmeric (QC Tumeric Complex) 500 MG capsule Tumeric Activ e Calcium Carb-Cholecalcif ac (CALCIUM 1000 + D PO) 3 Active cephalexin (Keflex) 500 MG capsuleIndicatio ns:Presence of right artificial knee joint,Left knee pain, unspecified chronicity,Prese nce of left artificial knee joint Take all 4 capsules one hour before the procedure. 4 capsule 4 Active Additional Information Patient not taking.Reported on 02/08/2024 raloxifene (Evista) 60 MG tabletIndication s:Age related osteoporosis, unspecified pathological fracture presence TAKE 1 TABLET BY MOUTH EVERY DAY 90 tablet 2 4 Active Tretinoin (Altreno) 0.05 % lotionIndication s:Lentigines Apply thin layer to face at bedtime 45 g 11 4 Active Active Problems No known active problems Family History Medical History Relation Name Comments Heart disease Father Dad Osteoporosis Father Dad Stroke Father Dad Brain cancer Father's Brother Fredy Cancer Father's Brother Fredy Mental illness Maternal Grandfather Heart disease Maternal Grandmother Heart disease Mother Mental illness Mother Diabetes Paternal Grandmother Lachelle Leonard Heart disease Sibling Relation Name Status Comments Father Dad Father's Brother Fredy Alive Maternal Grandfather Maternal Grandmother Mother Paternal Grandmother Lachelle Leonard Sibling Social History Tobacco Use Types Packs/Day Years Used Date Smoking Tobacco: Former Cigarettes 0.5 8 1 - 03/28/1983 Smokeless Tobacco: Never Tobacco Cessation:Counseling Given: Not Answered Comments:I quit many times,seldom smoked more than 1/2 pack Alcohol Use Standard Drinks/Week Comments Not Currently 0 (1 standard drink = 0.6 oz pure alcohol) caffeine: 1-2 cups per day, coffee/tea PHQ-2 Answer Date Recorded Patient Health Questionnaire-2 Score 0 12/26/2023 Comments No Sex and Gender Information Value Date Recorded Sex Assigned at Female 09/14/2022 6:26 PM EDT Legal Sex Female 7:06 PM EDT Gender Identity Female 09/14/2022 6:26 PM EDT Sexual Orientation Not on file Last Filed Vital Signs Vital Sign Reading Time Taken Comments Blood Pressure 118/74 12/26/2023 10:29 AM EDT Pulse - - Temperature 36.6 C (97.8 F) 12/27/2022 9:18 AM EDT Respiratory Rate - - Oxygen Saturation - - Inhaled Oxygen Concentration - - Weight 63 kg (139 lb) 12/26/2023 10:29 AM EDT Height 157.5 cm (5' 2 ) 07/06/2023 9:27 AM EDT Body Mass Index 25.42 07/06/2023 9:27 AM EDT Plan of Treatment Upcoming Encounters Date Type Department Care Team (Late st Contact Info) Description 02/07/2025 9:35 AM EST [facility] [address] [place] [address] Belinda Ramirez APRN-BILINGUAL ACCOUNT MANAGER [address] [place] [address] Health Maintenance Due Date Last Done Comments CT Colonography 1956 FIT-DNA 1956 FIT 1956 FOBT 1955 Sigmoidoscopy 1956 Pneumococcal Vaccine: 65+ Ye ars (1 of 1 - PCV) 2006 Colonoscopy 10/30/2024 10/30/2014 Colorectal Cancer Screening 10/30/2024 Influenza Vaccine (#1) 2024 Mammogram 03/23/2025 03/23/2024, 02/26, 03/17/2022, Additional history exists Medical Devices Implanted Type Area Customer Success Manager Device Identifier Shelf Expiration Date Model / Serial / Lot Breast Implant Breast Implant Bilateral: Breast Procedures Procedure Name Priority Date/Time Associated Diagnosis Comments BI MAMMOGRAM SCREENING TOMOSYNTHESIS BILATERAL Routine 03/23/2024 9:30 AM EST Encounter for screening mammogram for malignant neoplasm of breast from Last 3 Months or Most Recently Relevant to Health Maintenance Results * Bilateral screening mammogram with tomosynthesis (03/23/2024 9:30 AM EST) Anatomical Region Laterality Modality Breast Bilateral Mammography 03/23/2024 10:0 4 AM EST Impressions 03/23/2024 10:10 AM EST Impression: No specific evidence of malignancy seen in either breast. BIRADS 2 - Benign Findings DENSITY: There are scattered areas of fibroglandular density. FOLLOW-UP: Routine Screening Mammogram ELECTRONICALLY SIGNED BY: Seamus Baker M.D. Narrative 03/23/2024 10:10 AM EST Examination: BI MAMMOGRAM SCREENING TOMOSYNTHESIS BILATERAL Clinical History: screening Technique: Screening digital mammography study of both breasts was performed with 2-D and 3-D tomosynthesis imaging. Study was compared to the prior exam dated 03/18/2023. Findings: There is no evidence of interval dominant spiculated mass, grouped microcalcifications, or skin thickening which would be suggestive of malignancy. Axillary lymph nodes are noted on the left. Breast implants appear grossly unremarkable and similar to the prior study, no obvious interval contour abnormality or leak. Procedure Note Seamus Baker MD - 03/23/2024 Examination: BI MAMMOGRAM SCREENING TOMOSYNTHESIS BILATERAL Clinical History: screening Technique: Screening digital mammography study of both breasts wasperformed with 2-D and 3-D tomosynthesis imaging. Study was compared tothe prior exam dated 03/18/2023. Findings: There is no evidence of interval dominant spiculated mass,grouped microcalcifications, or skin thickening which would be suggestiveof malignancy. Axillary lymph nodes are noted on the left. Breast implants appear grosslyunremarkable and similar to the prior study, no obvious interval contourabnormality or leak. IMPRESSION: Impression: No specific evidence of malignancy seen in either breast. BIRADS 2 - Benign Findings DENSITY: There are scattered areas of fibroglandular density. FOLLOW-UP: Routine Screening Mammogram ELECTRONICALLY SIGNED BY: Seamus Baker M.D. Camilo Dillard MD IMG BI PROCEDURES Final Result from Last 3 Months or Most Recently Relevant to Health Maintenance Insurance MEDICARE [facility] Care Teams Cia Agent Relationship Specialty Start Date End Date Evin Mora MD PCP - General Family Medicine 09/15/22
--- OUTSIDE RECORDS SUMMARY | 2024-11-21 10:19 | XMS_ITS | Encounter Summary ---
Author Organization [facility] Address [address] [place] [place] [address] Care Team Providers Care Product Sales Engineer Name Role Phone Evin Mora MD Primary Care Provider [phone] Encounter Details Date Type Department Care Team (Late Contact Info) Description 09/25/2022 Abstract [facility] [address] [facility] [place] [id number] PocJorge lopez DO [address] [facility] [place] [address] Social History Tobacco Use Types Packs/Day Years Used Date Smoking Tobacco: Former Cigarettes Q uit: 03/28/1983 Smokeless Tobacco: Never Tobacco Cessation:Counseling Given: Not Answered Alcohol Use Standard Drinks/Week Comments Not Currently 0 (1 standard drink = 0.6 oz pure alcohol) caffeine: 1-2 cups per day, coffee/tea Comments Unknown Sex and Gender Information Value Date Recorded Sex Assigned at Female 09/14/2022 6:26 PM EDT Legal Sex Female 7:06 PM EDT Gender Identity Female 09/14/2022 6:26 PM EDT Sexual Orientation Not on file documented as of this encounter Plan of Treatment Upcoming Encounters Date Type Department Care Team (Late Contact Info) Description 02/07/2025 9:35 AM EST Office [facility] [address] [place] [id number] Belinda Ramirez, IN MOLD COATER-IT SECURITY ENGINEER [address] [place] [address] documented as of this encounter Visit Diagnoses Not on filedocumented in this encounter Care Teams Product Sales Engineer Relationship Specialty Start Date End Date Evin Mora MD PCP - General Family Medicine 09/15/22 documented as of this encounter
--- OUTSIDE RECORDS SUMMARY | 2024-11-21 10:19 | XMS_ITS | Clinical Summary ---
Author Organization [employer] [facility] Address [facility] [place] [id number] [address] [place] [address] Care Team Providers Care Environmental Aide Name Role Phone Evin Mora MD Primary Care Provider [phone] Allergies No known active allergies Medications simvastatin (ZOCOR) 20 mg tablet Take 20 mg by mouth nightly. Active cetirizine (ZyrTEC) 10 mg tablet Take 10 mg by mouth nightly. Active Active Problems Problem Noted Date Diagnosed Date Other hyperlipidemia 01/05/2019 Seasonal allergies 01/05/2019 Primary osteoarthritis of right hip 01/04/2019 Social History Tobacco Use Types Packs/Day Years Used Date Smoking Tobacco: Former Cigarettes 0.5 9 1 975 - 1983 Smokeless Tobacco: Never Alcohol Use Standard Drinks/Week Comments Yes 0 (1 standard drink = 0.6 oz pur e alcohol) rare Childcare Answer Date Recorded Childcare Unknown 09/06/2018 Employment Answer Date Recorded Employment Unknown 09/06/2018 Purpose - Life Answer Date Recorded Purpose and direction in life Unknown Comments No Sex and Gender Information Value Date Recorded Sex Assigned at Not on file Legal Sex Female 11:40 AM EDT Gender Identity Not on file Sexual Orientation Not on file Last Filed Vital Signs Vital Sign Reading Time Taken Comments Blood Pressure 119/72 01/06/2019 5:00 AM EDT Pulse 59 01/06/2019 5:00 AM EDT Temperature 37 C (98.6 F) 01/06/2019 5:00 AM EDT Respiratory Rate 16 01/06/2019 5:00 AM EDT Oxygen Saturation 95% 01/06/2019 5:00 AM EDT Inhaled Oxygen Concentration - - Weight 63.2 kg (139 lb 5.3 oz) 01/05/2019 10:15 AM EDT Height 158 cm (5' 2.21 ) 01/05/2019 10:15 AM EDT Body Mass Index 25.32 01/05/2019 10:15 AM EDT Plan of Treatment Health Maintenance Due Date Last Done Comments Depression Screening 1968 Tobacco Screening 1968 Adult BMI Screening 1974 DTaP,Tdap and Td Vaccines (1 - Tdap) 1975 Zoster (Shingles) Vaccine (1 of 2) 2006 Fall Risk Screening 2021 Influenza Vaccine 11/26/2024 Goals Goal Patient Goal Type Associated Problems Recent Progress Patient-Stated? Author Improve mobility General Yes Linnette Odonnell, RN Note: Evaluation of progress towards goal: Maximize work with PT at discharge to strengthen R hip Medical Devices Implanted Type Area Engineering Coordinator Device Identifier Shelf Expiration Date Model / Serial / Lot Shl Actb 50mm Hip 3 Hl Fin Pps - [id number] Implanted:Qty : 1 on 01/05/2019 by Jorge Reeder MD at [facility] Orthopedic Implant Right: Hip [employer] 06/24/2028 [id number] / / [id number] Linr Actb G7 Ntrl E1 36mm D - [id number] Implanted:Qty : 1 on 01/05/2019 by Jorge Reeder MD at [facility] Orthopedic Implant Right: Hip [employer] 04/18/2022 [id number] / / [id number] Stm Fem 142mm 133d 11 Hi Os - [id number] Implanted:Qty : 1 on 01/05/2019 by Jorge Reeder MD at [facility] Orthopedic Implant Right: Hip [employer] 08/01/2028 [id number] / / [id number] Slv Fem Opt -6mm Tpr Hip Blx D Rpl 650-1064 - [id number] Implanted:Qty : 1 on 01/05/2019 by Jorge Reeder MD at [facility] Orthopedic Implant Right: Hip [employer] 03/08/2028 [id number] / / [id number] Hd Fem 36mm Opt Shl Actb G7 Bl Rpl 650-1055 - [id number] Implanted:Qty : 1 on 01/05/2019 by Jorge Reeder MD at [facility] Orthopedic Implant Right: Hip [employer] 01/26/2028 [id number] / / [id number] [place] [address] [facility] Advance Directives Documents on File Type Date Recorded Patient Supervisor Of Guidance And Testing Expl anation Living Will 12/21/2018 10:43 AM Care Teams Environmental Aide Relationship Specialty Start Date End Date Evin Mora MD PCP - General Family Medicine 12/21/18
--- OUTSIDE RECORDS SUMMARY | 2024-11-21 10:19 | XMS_ITS | Patient Health Record ---
Author Organization [facility] Address [address] [place] [address] Care Team Providers Care Bulwark Carpenter Name Role Phone Vikram Mora Primary Care Provider Allergies Allergen (clinical drug ingredient) Drug/Non Drug Allergy documented on EMR Reaction Allergy Type Onset Date Status alendronate Fosamax bad diarrhea Drug Allergy Ac tive Results Component Value Reference Range Notes CBC AUTO DIFF Reviewed date:10/22/2024 01:09:55 PM Interpretation: Performing Lab: Notes/Report: [facility] , White Blood Count 3.5 4.0-11.0 10 3/uL Red Blood Count 4.08 4.20-5.40 10 6/uL Hemoglobin 12.4 12.0-16.0 g/dL Hematocrit 37.3 36.0-48.0 % Mean Corpuscular Volume 91.4 81.0-99.0 fL Mean Corpuscular Hemoglobin 30.4 26.7-34.0 pg Mean Corpuscular HGB Conc 33.2 29.9-35.2 g/dL Red Cell Distribution Width 13.1 11.0-15.0 % Platelet Count 222 150-450 10 3/uL Mean Platelet Volume 10.2 9.5-13.5 fL Neutrophils Percent Auto 56.2 43.0-75.0 % Lymphocytes Percent Auto 28.2 20.5-60.0 % Monocytes Percent Auto 8.5 1.7-12.0 % Eosinophils Percent Auto 5.1 0.9-7.0 % Basophils Percent Auto 1.7 0.2-2.0 % Immature Granulocytes Pct Auto 0.3 0.0-0.5 % Neutrophils Absolute Auto 2.0 1.4-6.5 10 3/uL Lymphocytes Absolute Auto 1.0 1.2-3.8 10 3/uL Monocytes Absolute Auto 0.3 0.3-0.8 10 3/uL Eosinophils Absolute Auto 0.2 0.0-0.7 10 3/uL Basophils Absolute Auto 0.1 0.0-0.1 10 3/uL Immature Granulocytes Abs Auto 0.01 0.00-0.03 10 3/uL Performing Lab: see note ML - [facility] FREE T3 Reviewed date:10/22/2024 01:09:55 PM Interpretation: Performing Lab: Notes/Report: [facility] , Free T3 2.44 2.18-3.98 pg/mL Performing Lab: see note ML - [facility] LB GLYCOHEMOGLOBIN A1C Reviewed date:10/22/2024 01:09:55 PM Interpretation: Performing Lab: Notes/Report: [facility] , Glycohemoglobin A1C 5.5 4.5-6.2 % ADA THERAPEUTIC TARGET < 7.0 ADA RECOMMENDED LIMIT 4.0 - 6.0 > 7.0 ACTION SUGGESTED Estimated Average Glucose 111 Performing Lab: see note ML - [facility] IRON Reviewed date:10/22/2024 01:09:55 PM Interpretation: Performing Lab: Notes/Report: [facility] , Iron 108.0 50.0-170.0 ug/dL Performing Lab: see note ML - [facility] LB LIPID PROFILE Reviewed date:10/22/2024 01:09:55 PM Interpretation: Performing Lab: Notes/Report: [facility] , Triglycerides 74 <=150 mg/dL Cholesterol 196 <=200 mg/dL HDL Cholesterol 98 40-60 mg/dL > or =60 mg/dl - LOW CARDIOVASCULAR RISK <40 mg/dl - HIGH CARDIOVASCULAR RISK LDL Cholesterol Calculated 84.0 130-159 mg/dl BORDERLINE HIGH <100 mg/dl OPTIMAL 160-189 mg/dl HIGH 100-129 mg/dl NEAR OR ABOVE OPTIMAL >190 mg/dl VERY HIGH VLDL CHOLESTEROL 14.8 Chol HDL Ratio 2.0 7.1 - 11.0 MODERATE RISK 3.3 - 4.4 LOW RISK >11.0 HIGH RISK 4.4 - 7.1 AVERAGE RISK Performing Lab: see note ML - [facility] PROF 14(COMP METB) Reviewed date:10/22/2024 01:09:55 PM Interpretation: Performing Lab: Notes/Report: [facility] , Sodium 142 136-145 mmol/L Potassium 4.4 3.5-5.1 mmol/L Chloride 105 98-107 mmol/L Carbon Dioxide 28.9 21.0-32.0 mmol/L Anion Gap 12.5 Glucose 101 74-106 mg/dL Blood Urea Nitrogen 18.0 7.0-18.0 mg/dL Creatinine 0.87 0.55-1.02 mg/dL Estimated GFR ( Adeola >60 >=60 mL/min/1.73m 2 Estimated GFR (Non- Aminata >60 >=60 mL/min/1.73m 2 BUN Creatinine Ratio 20.7 Calcium 9.3 8.5-10.1 mg/dL Bilirubin Total 0.5 0.2-1.0 mg/dL Aspartate Amino Transferase 42 15-37 U/L Alanine Aminotransferase 33 14-59 U/L Alkaline Phosphatase 84 46-116 U/L Total Protein 7.7 6.4-8.2 g/dL Albumin Level 3.7 3.4-5.0 g/dL Globulin 4.0 Albumin Globulin Ratio 0.9 Performing Lab: see note ML - [facility] LB T4 Reviewed date:10/22/2024 01:09:55 PM Interpretation: Performing Lab: Notes/Report: [facility] , T4 Thyroxine 7.40 4.80-13.90 ug/dL Performing Lab: see note ML - [facility] LB TSH Reviewed date:10/22/2024 01:09:55 PM Interpretation: Performing Lab: Notes/Report: [facility] , Thyroid Stimulating Hormone 1.670 0.358-3.740 u IU/mL Performing Lab: see note - [facility] LB MAGNESIUM Reviewed date:10/22/2024 01:09:55 PM Interpretation: Performing Lab: Notes/Report: [facility] , Magnesium 2.0 1.8-2.4 mg/dL Performing Lab: see note - [facility] LB Reason For Referral No Information Medications Medication SIG (Take, Route, Frequency, Duration) Notes Start Date End Date Status Calcium 500 MG 1 tablet with meals Orally Once a day Active Triamcinolone Acetonide 0.1 % 1 application Externally bid 10/22/2024 Active Multi Vitamin - 1 tablet Orally Once a day Active Simvastatin 20 MG TAKE 1 TABLET BY KERON TH EVERY DAY for 90 Active Magnesium 200 MG 1 tablet with a meal Orally Q HS Active Citalopram Hydrobromide 10 MG TAKE 1 TABLET BY MOUTH EVERY DAY for 90 Active Turmeric 500 MG as directed Orally [...] W/U Status Risk Notes Problem Magnesium deficiency (549189948) Magnesium deficiency (E61.2) Active confirmed Problem Swollen abdomen (39005158) Right lower quadrant abdominal swelling, mass and lump (R19.03) Active confirmed Problem Edema (47858811) Edema (R60.9) Active confirmed Problem Venous insufficiency of leg (disorder) (616078834) Venous insufficiency (I87.2) Active confirmed Problem Osteopenia (897471942) Osteopenia (M85.80) Active confirmed Problem Insomnia (368512973) Insomnia (G47.00) Active confirmed Problem Eczema (98138407) Eczema (L30.9) Active confirm ed Problem Sebaceous cyst (320028779) Sebaceous cyst (L72.3) Active confirmed Problem Sinusitis (68792621) Sinusitis (J32.9) Active confirmed Problem Allergic rhinitis (17268348) Allergic rhinitis (J30.9) Active confirmed Problem Impacted cerumen (44301343) Cerumen impaction (H61.20) Active confirmed Problem Diarrhea (43968107) Diarrhea (R19.7) Active confirmed Problem Acute bronchitis (63719301) Acute bronchitis (J20.9) Active confirmed Problem Conjunctivitis (5291628) Conjunctivitis (H10.9) Active confirmed Problem Contact dermatitis (33996431) Contact dermatitis (L25.9) Active confirmed Problem Internal derangement of knee (51268236) Internal derangement of knee (M23.90) Active confirmed Problem Irritable bowel syndrome (78281908) Irritable bowel disease (K58.9) Active confirmed Problem White blood cell disorder (39576035) Abnormal white blood cell (WBC) count (D72.9) Active confirmed Problem Small bowel obstruction (992151704) Small bowel obstruction (K56.609) Active confirmed Problem Osteoarthritis of knee (146008813) Osteoarthritis of right knee (M17.11) Active confirmed Problem Disease caused by Severe acute respiratory syndrome coronavirus 2 (disorder) (701096852) COVID-19 virus infection (U07.1) Active confirmed Problem Headache (49865989) Headache, unspecified (R51.9) Active confirmed Problem Acute Laryngitis (0187619) Acute laryngitis, without mention of obstruction (J04.0) Active confirmed Vital Signs Temperature 99.0 degrees Fahrenheit 09/07/2024 Blood pressure diastolic 82 mm Hg 10/22/2024 Height 62 in 10/22/2024 Blood pressure systolic 138 mm Hg 10/22/2024 Weight 135.0 lbs 10/22/2024 BMI 24.69 kg/m2 10/22/2024 Encounters Encounter Location Date Provider Diagnosis [facility] [address] [place] [address] 10/22/2024 Vikram Hoy Abnormal white blood cell (WBC) count D72.9 [facility] [address] [place] [address] 02/09/2024 Vikram Hoy Headache, unspecifie d R51.9 ; Edema R60.9 ; Insomnia G47.00 and Encounter for Medicare annual wellness exam Z00.00 [facility] [address] [facility] [place] [address] 05/07/2024 Vikram Mora [facility] [address] [place] [facility] [place] [address] 08/06/2024 Vikram Mora [facility] [address] [facility] [place] [address] 09/12/2024 Vikram Mora [facility] [address] [facility] [place] [address] 07/02/2024 Vikram Mora Irritable bowel dise ase K58.9 [facility] [address] [facility] [place] [address] 09/07/2024 Vikram Mora Acute bronchitis, unspecified organism J20.9 [facility] [address] [facility] [place] [address] 10/22/2024 Vikram Jimisally Irritable bowel dise ase K58.9 ; Magnesium deficiency E61.2 ; Allergic rhinitis J30.9 and Osteopenia M85.80 [facility] [address] [place] [facility] [place] [address] 02/09/2024 Vikram Mora Encounter for [facility] annual wellness exam Z00.00 Assessments Encounter Date [...] vaporizer to help keep the drainage moist. Vxrf-vlp-hmlaqwv Nasal Saline may help the stuffy and runny nose. Use Ibuprofen and or Tylenol as needed for fever, chills, body aches or pain. Children 5 years old should not be given vbib-jbt-ljlkuax cough and cold medications such as guaifenesin and dextromethorphan. If you're over age 5, you may try ksrv-zgw-yntihfs cold medications such as guaifenesin and dextromethorphan, [...] - R51.9) 02/09/2024 Edema (ICD-10 - R60.9) 10/22/2024 Abnormal white blood cell (WBC) count (ICD-10 - D72.9) 02/09/2024 Insomnia (ICD-10 - G47.00) 10/22/2024 Allergic [...] FECAL, IMMUNOASSAY 024 CBC W/AUTO DIFF 02/09/2024 CBC AUTO DIFF 10/22/2024 GLYCOHEMOGLOBIN A1C 02/09/2024 THYROID PANEL (T4/TSH/FREE T3) 4 THYROID PANEL (T4/TSH/FREE T3) 5 Vitamin D 02/09/2024 Lipid Panel 02/09/2024 CMP (COMP MET DAILEY) w/eGFR CKD-EPI 2024 CBC WITH DIFF 10/22/2024 Insurance Providers Payer Name Payer Address Payer Phone Subscriber Number Group Number Insured Name Patient Relationship to Insured Coverage Start Date Coverage End Date [employer] [address] [place] [phone] [id number] Colette Valente Self - patient is [...]
--- OUTSIDE RECORDS SUMMARY | 2024-11-21 10:19 | XMS_ITS | Clinical Summary ---
Author Organization [facility] Address [address] [place] [address] Phone Care Team Providers Care Mold Yarn Supervisor Name Role Phone Unavailable Primary Care Provider Unavailabl e Social History Tobacco Use Types Packs/Day Years Used Date Smoking Tobacco: Never Assessed Comments Unknown Sex and Gender Information Value Date Recorded Sex Assigned at Not on file Legal Sex Female 7:23 PM EST Gender Identity Not on file Sexual Orientation Not on file Plan of Treatment Not on file
--- OUTSIDE RECORDS SUMMARY | 2024-11-21 10:19 | XMS_ITS | Encounter Summary ---
Author Organization [facility] Address [address] [place] [address] Care Team Providers Care Puppy Walker Name Role Phone Evin Mora MD Primary Care Provider [phone] Encounter Details Date Type Department Care Team (Late Contact Info) Description 05/12/2023 Abstract [facility] [address] [place] [id number] PocJorge lopez, [address] [place] [address] Social History Tobacco Use Types Packs/Day Years Used Date Smoking Tobacco: Former Cigarettes 0.5 8 1 - 03/28/1983 Smokeless Tobacco: Never Comments:I quit many times,s eldom smoked more than 1/2 pack Alcohol Use Standard Drinks/Week Comments Not Currently 0 (1 standard drink = 0.6 oz pure alcohol) caffeine: 1-2 cups per day, coffee/tea Comments No Sex and Gender Information Value [...] [facility] [address] [place] [id number] Belinda Ramirez, [employer] [address] [facility] [address] [place] [address] documented as of this encounter Visit Diagnoses Not on filedocumented in this encounter Care Teams Puppy Walker Relationship Specialty Start Date End Date Evin Mora MD PCP - General Family Medicine 09/15/22 documented as of this encounter
--- OUTSIDE RECORDS SUMMARY | 2024-11-21 10:26 | XMS_ITS | CCD ---
Author Organization [facility] Care Team Providers Care Camp Counselor Name Role Phone Alexander Gen Carrillo Primary [...] Unavailable Marilee Mora MD Primary Care Provider [phone] JACOB ALVAREZ Referring Unavailable JACOB ALVAREZ Attending Unavailable JORDIN GARCIA Attending Unavailable BELINDA RAMIREZ Attending Unavailable JORDIN GARCIA Referring Unavailable Ranjan PEDERSEN Attending Unavailable Allergies Allergy Classification Reported Allergen(s) Allergy Type Date of Onset Reaction(s) Facility (1 source) No Known Medication Allergies; Translations: [No Known Medication Allergies] Propensity to adverse reactions (disorder) [facility] Repository Medications Current Medications Medication Drug Class(es) [...] BID, # 60 tab(s), Refills(s) 0, Pharmacy: [facility], 163, cm, 05/31/22 6:43:00 EST, Height/Length [...] day(s), # 4 cap(s), Refills(s) 0, Pharmacy: [facility], 163, cm, 05/31/22 6:43:00 EST, Height/Length [...] constipation, # 40 cap(s), Refills(s) 0, Pharmacy: [facility], 163, cm, 05/31/22 6:43:00 EST, Height/Length [...] Nausea, # 10 tab(s), Refills(s) 0, Pharmacy: [facility]/pharmacy #[id number], 159, cm, 08/26/21 15:41:00 EDT, Height/Length Dosing, 60.8, kg, 08/26/21 15:41:00 EDT, Weight Dosing Start Date: 09/18/21 Status: Ordered oxyCODONE hydrochloride 5 mg oral tablet (1 source) Opioid Agonist Start: 06-15-2022 oxyCODONE 5 mg Tab 5 mg = 1 tab(s), Oral, As Directed, 1-2 po q4-6 hrs prn pain Dx: M17.11, Z96.651 Duration: 7days, # 40 tab(s), Refills(s) 0, Pharmacy: [facility] #72, 163, cm, 05/31/22 6:43:00 EST, [...] 08-14-2021 Chronic Other aftercare (1 source) Other joint 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 Nehemiah Lord FREE T3on 07-16-2022 FREE T3 2.75 pg/mlL Normal 2.18-3.98 [facility] Comment on above: Performed By: #### C BC #### [facility] [address] [place] [address] Dr. Nehemiah Lord GLYCOHEMOGLOBIN A1Con 2022 ADA RECOMMENDATION SEE BELOW Normal [facility] Comment on above: Result Comment: ADA RECOMMENDED LIMIT 4.0 - 6.0 ADA THERAPEUTIC TARGET < 7.0 ACTION SUGGESTED > 7.0 Performed By: #### A 1C #### [facility] [address] [place] [address] Dr. Nehemiah Lord Glucose [Mass/Vol] 114 mg/dL Normal [facility] Comment on above: Performed By: #### A 1C #### [facility] [address] [place] [address] Dr. Nehemiah Lord HbA1c (d) [Mass fraction] 5.6 % Normal 4.5-6.2 [facility] Comment on above: Performed By: #### A 1C #### [facility] [address] [place] [address] Dr. Nehemiah Lord LIPID PROFILEon 07-16-2022 CHOL-HDL RATIO NORM SEE BELOW Normal [facility] Comment on above: Result Comment: 3.3 - 4.4 LOW RISK 4.4 - 7.1 AVERAGE RISK 7.1 - 11.0 MODERATE RISK >11.0 HIGH RISK Performed By: #### C BC #### [facility] [address] [place], [place] [address] Dr. Nehemiah Lord Cholesterol [Mass/Vol] 195 mg/dL Normal <=200 [facility] Comment on above: Performed By: #### C BC #### [facility] [address] [place], [place] [address] Dr. Nehemiah Lord Cholesterol in HDL [Mass/Vol] 91 mg/dL Critically high 40-60 [facility] Comment on above: Performed By: #### C BC #### [facility] [address] [address] [address] Nehemiah Lord Cholesterol in LDL [Mass/Vol] 92.0 mg/dL Normal [facility] Comment on above: Performed By: #### C BC #### [facility] [address] [address] [address] Nehemiah Lord Cholesterol.total/Cho lesterol in HDL [Mass ratio] 2.1 {ratio} Normal [facility] Comment on above: Performed By: #### C BC #### [facility] [address] [address] [address] Nehemiah Lord HDL NORMAL > or = 60 mg/dl - LOW CARDIOVASCULAR RISK <40 mg/dl - HIGH CARDIOVASCULAR RISK Normal [facility] Comment on above: Performed By: #### C BC #### [facility] [address] [id number] Nehemiah Lord LDL CALC NORMAL SEE BELOW Normal [facility] Comment on above: Result Comment: <100 mg/dl OPTIMAL 100 - 129 mg/dl NEAR OR ABOVE OPTIMAL 130 - 159 mg/dl BORDERLINE HIGH 160 - 189 mg/dl HIGH >190 mg/dl VERY HIGH Performed By: #### C BC #### [facility] [address] [address] [address] Nehemiah Lord Triglyceride [Mass/Vol] 60 mg/dL Normal <=150 [facility] Comment on above: Performed By: #### C BC #### [facility] [address] [address] [address] Nehemiah Lord VLDL CALC 12.0 mg/dL Normal [facility] Comment on above: Performed By: #### C BC #### [facility] [address] [place] [address] Dr. Nehemiah Lord LIVER PROFILEon 07-16-2022 Albumin [Mass/Vol] 3.5 g/dL Normal 3.4-5.0 [facility] Comment on above: Performed By: #### C BC #### [facility] [address] [place] [address] Dr. Nehemiah Lord Albumin/Globulin [Mass ratio] 0.8 {ratio} Normal [facility] Comment on above: Performed By: #### C BC #### [facility] [address] [place] [address] Dr. Nehemiah Lord ALP [Catalytic activity/Vol] 97 U/L Normal 46-116 [facility] Comment on above: Performed By: #### C BC #### [facility] [address] [place] [address] Dr. Nehemiah Lord ALT [Catalytic activity/Vol] 26 U/L Normal 14-59 [facility] Comment on above: Performed By: #### C BC #### [facility] [address] [place] [address] Dr. Nehemiah Lord AST [Catalytic activity/Vol] 36 U/L Normal 15-37 [facility] Comment on above: Performed By: #### C BC #### [facility] [address] [place] [address] Dr. Nehemiah Lord BILI, CONJUGATED 0.1 mg/dL Normal 0.0-0.2 [facility] Comment on above: Performed By: #### C BC #### [facility] [address] [place] [address] Dr. Nehemiah Lord Bilirubin [Mass/Vol] 0.3 mg/dL Normal 0.2-1.0 [facility] Comment on above: Performed By: #### C BC #### [facility] [address] [place] [address] Dr. Nehemiah Lord Globulin (S) [Mass/Vol] 4.4 g/dL Normal [facility] Comment on above: Performed By: #### C BC #### [facility] [address] [address] [address] Nehemiah Lord Protein [Mass/Vol] 7.9 g/dL Normal 6.4-8.2 [facility] Comment on above: Performed By: #### C BC #### [facility] [address] [place] [address] Dr. Nehemiah Lord T4on 07-16-2022 T4 [Mass/Vol] 9.00 ug/dL Normal 4.80-13.90 [facility] Comment on above: Performed By: #### C BC #### [facility] [address] [place] [address] Dr. Nehemiah Lord TSHon 07-16-2022 TSH 1.758 uIU/mL Normal 0.358-3.740 [facility] Comment on above: Performed By: #### C BC #### [facility] [address] [place] [address] Dr. Nehemiah Lord VITAMIN D 25 OHon 07-16-2022 VIT D 25-OH 38.4 ng/mL Normal [facility] Comment on above: Performed By: #### ANA MARTIN #### [facility] [address] [place] [address] Dr. Nehemiah Lord VIT D RANGES SEE BELOW Normal [facility] Comment on above: Result Comment: <20 ng/mL Vit D deficient 20 - <30 ng/mL Vit D insufficient 30 - 100 ng/mL Vit D sufficient >100 ng/mL Potential Toxicity Performed By: #### ANA MARTIN #### [facility] [address] [place] [address] Dr. Nehemiah Lord BLOOD BANKOrdered By: David Aparicio on 06-15-2022 ABO/Rh Interp Positive Invalid Interpretation Code [facility] BB Subsection ABSC Gel Interp Negative (06/15/22 6:18 AM) Normal [facility] BB Subsection BLOOD BANKOrdered By: Vicki Bianchi on 05-28-2022 ABO/Rh Retype Interp Positive Invalid Interpretation Code [facility] BB Subsection CHEMISTRYOrdered By: SYSTEM SYSTEM on [...] rate/Area] mL/min/1.73 m2 Normal >=59mL/min/1. 73 m2 [facility] Chem S Glucose [Mass/Vol] 91 mg/dL Normal [...] AM) Normal Negative [facility] UA Auto SS [place].plasma/Lithiu m.RBC (Bld) [Mass ratio] 0-3 /HPF Normal [...] [facility] UA Auto SS Urobilinogen Qn (U) 0.0507529 {Sosa'U}/dL Normal 0.0 - 1.0 EU/dL [facility] UA Auto SS WBC Auto Ql (U) Negative (05/28/22 8:07 AM) Normal Negative [facility] UA Auto SS WBC LM.HPF (Urine sed) [#/Area] 0-5 /HPF Normal 0-5/HPF [facility] UA Auto SS SCREENING MAMMOGRAM W/STEFFI, BILATERAL*on [...] VERY IMPORTANT TO YOUR HEALTH. THE CURRENT [place] [employer] AND [employer] GUIDELINES RECOMMENDS ANNUAL MAMMOGRAPHY BEGINNING AT AGE 41 THIS FACILITY USES A REMINDER SYSTEM TO ENSURE ALL PATIENTS RECEIVE REMINDER NOTIFICATIONS AT THE APPROPRIATE TIME BASED ON THE RECOMMENDATIONS OF THIS EXAM. Board Certified Radiologist. Accredited by the ACR and FDA. Report reported and signed by Florentino Mcgill on 03/17/2022 1412 Normal [facility] Public [facility] Dentist CHEMISTRYOrdered By: SYSTEM SYSTEM on 11-04-2021 Creatinine [Mass/Vol] 0.9 mg/dL Normal 0.5 - 1.3 mg/dL [facility] Remisol GFR/1.73 sq M.predicted among blacks MDRD (S/P/Bld) [Vol rate/Area] mL/min/1.73 m2 Normal >=59mL/min/1. 73 m2 [facility] Chem S GFR/1.73 sq M.predicted among non-blacks MDRD (S/P/Bld) [Vol rate/Area] mL/min/1.73 m2 Normal >=59mL/min/1. 73 m2 [facility] Chem S AMYLASEon 09-17-2021 Amylase [Catalytic activity/Vol] 81 U/L Normal 25-115 [facility] [place] [facility] Comment on above: Performed By: #### L IPA, CMP, LEELA #### [facility] [address] [address] [address] Nehemiah Lord CBC AUTO DIFFon 09-17-2021 BASO # 0.0 103/ul Normal 0.0-0.1 [facility] Comment on above: Performed By: #### C BC #### [facility] [address] [place] [address] Dr. Nehemiah Lord Basophils/100 WBC (Bld) 0.1 % Critically low 0.2-2.0 [facility] Comment on above: Performed By: #### C BC #### [facility] [address] [place] [address] Dr. Nehemiah Lord EO # 0.0 103/ul Normal 0.0-0.7 [facility] Comment on above: Performed By: #### C BC #### [facility] [address] [place] [address] Dr. Nehemiah Lord Eosinophils/100 WBC (Bld) 0.0 % Critically low 0.9-7.0 [facility] Comment on above: Performed By: #### C BC #### [facility] [address] [place] [address] Dr. Nehemiah Lord Erythrocyte distribution width (RBC) [Ratio] 12.6 % Normal 11.0-15.0 [facility] Comment on above: Performed By: #### C BC #### [facility] [address] [place] [address] Dr. Nehemiah Lord Hematocrit (Bld) [Volume fraction] 37.2 % Normal 36.0-48.0 [facility] Comment on above: Performed By: #### C BC #### [facility] [address] [place] [address] Dr. Nehemiah Lord Hemoglobin (Bld) [Mass/Vol] 12.1 g/dL Normal 12.0-16.0 [facility] Comment on above: Performed By: #### C BC #### [facility] [address] [place] [address] Dr. Nehemiah Lord IG # 0.04 10e3/ul Critically high 0.00-0.03 [facility] Comment on above: Performed By: #### C BC #### [facility] [address] [place] [address] Dr. Nehemiah Lord IG % 0.4 % Normal 0.0-0.5 [facility] Comment on above: Performed By: #### C BC #### [facility] [address] [place] [address] Dr. Nehemiah Lord LYMPH # 1.0 103/ul Critically low 1.2-3.8 [facility] Comment on above: Performed By: #### C BC #### [facility] [address] [place] [address] Dr. Nehemiah Lord Lymphocytes/100 WBC (Bld) 10.7 % Critically low 20.5-60.0 [facility] Comment on above: Performed By: #### C BC #### [facility] [address] [place] [address] Dr. Nehemiah Lord MANUAL DIFF REQ NO Normal [facility] Comment on above: Performed By: #### C BC #### [facility] [address] [place] [address] Dr. Nehemiah Lord MCH (RBC) [Entitic mass] 29.5 pg Normal 26.7-34.0 [facility] Comment on above: Performed By: #### C BC #### [facility] [address] [place] [address] Dr. Nehemiah Lord MCHC (RBC) [Mass/Vol] 32.5 g/dL Normal 29.9-35.2 [facility] Comment on above: Performed By: #### C BC #### [facility] [address] [place] [address] Dr. Nehemiah Lord MCV (RBC) [Entitic vol] 90.7 fL Normal 81.0-99.0 [facility] [place] [facility] Comment on above: Performed By: #### C BC #### [facility] [address] [place] [address] Dr. Nehemiah Lord MONO # 0.6 103/ul Normal 0.3-0.8 [facility] Comment on above: Performed By: #### C BC #### [facility] [address] [address] [address] Nehemiah Lord Monocytes/100 WBC (Bld) 6.2 % Normal 1.7-12.0 [facility] [place] [facility] Comment on above: Performed By: #### C BC #### [facility] [address] [address] [address] Nehemiah Lord NEUT # 7.9 103/ul Critically high 1.4-6.5 [facility] Comment on above: Performed By: #### C BC #### [facility] [address] [place] [address] Dr. Nehemiah Lord Neutrophils/100 WBC (Bld) 82.6 % Critically high 43.0-75.0 [facility] Comment on above: Performed By: #### C BC #### [facility] [address] [place] [address] Dr. Nehemiah Lord Platelet mean volume (Bld) [Entitic vol] 9.7 fL Normal 9.5-13.5 [facility] Comment on above: Performed By: #### C BC #### [facility] [address] [place] [address] Dr. Nehemiah Lord PLT 248 103/ul Normal 150-450 [facility] Comment on above: Performed By: #### C BC #### [facility] [address] [place] [address] Dr. Nehemiah Lord RBC 4.10 106/ul Critically low 4.20-5.40 [facility] Comment on above: Performed By: #### C BC #### [facility] [address] [place] [address] Dr. Nehemiah Lrod WBC 9.6 103/ul Normal 4.0-11.0 [facility] Comment on above: Performed By: #### C BC #### [facility] [address] [place] [address] ABD/PELV W CONon [...] BRANDON GARCIA Date: 2021-09-17 01:31 Normal [facility] Covid-19 PCR (CVDTBH)on 08-27 SARS-CoV-2 (COVID-19) RNA ZACK+probe Ql (Unsp spec) Detected Critically abnormal NOT DETECTED [facility] Comment on above: Result Comment: This test is not yet approved or cleared by the [place] FDA. When there are no FDA-approved or cleared tests available, and other criteria are met, FDA can make tests available under an emergency access mechanism called an Emergency Use Authorization (EUA). The EUA for this test is supported by the [place] of Health and Human Service's declaration that [...] used). Performed By: #### C VDTB #### [facility] [address] [place] [address] Dr. Nehemiah Lord ER URINE PROFILEon 2 Bilirubin Ql (U) Negative Normal NEGATIVE [facility] Comment on above: Performed By: #### E CHANO UMICRO #### [facility] [address] [place] [address] Dr. Nehemiah Lord Clarity (U) CLEAR Normal CLEAR [facility] Comment on above: Performed By: #### Pierre MADDEN UMICRO #### [facility] [address] [place] [address] Dr. Nehemiah Lord Color (U) YELLOW Normal YELLOW [facility] Comment on above: Performed By: #### E CHANO UMICRO #### [facility] [address] [place] [address] Dr. Nehemiah Lord ERUAHD A micrscopic examination will be performed if indicated. Normal [facility] Comment on above: Performed By: #### Pierre MADDEN UMICRO #### [facility] [address] [place] [address] Dr. Nehemiah Lord Glucose Ql (U) Negative Normal NEGATIVE [facility] Comment on above: Performed By: #### Pierre MADDEN UMICRO #### [facility] [address] [place] [address] Dr. Nehemiah Lord Hemoglobin Ql (U) SMALL Abnormal NEGATIVE [facility] Comment on above: Performed By: #### Pierre MADDEN UMICRO #### [facility] [address] [place] [address] Dr. Nehemiah Lord Ketones Ql (U) 15 mg/dl Abnormal NEGATIVE [facility] Comment on above: Performed By: #### Pierre MADDEN UMICRO #### [facility] [address] [place] [address] Dr. Nehemiah Lord LEUKOCYTES Negative Normal NEGATIVE [facility] Comment on above: Performed By: #### NETTIE MARTINRO #### [facility] [address] [place] [address] Dr. Nehemiah Lord Nitrite Ql (U) Negative Normal NEGATIVE [facility] Comment on above: Performed By: #### NETTIE MARTINRO #### [facility] [address] [place] [address] Dr. Nehemiah Lord pH (U) 6.0 [pH] Normal 5-9 [facility] Comment on above: Performed By: #### NETTIE MARTINRO #### [facility] [address] [place] [address] Dr. Nehemiah Lord SPEC GRAVITY 1.015 Normal 1.005-<=1.025 [facility] Comment on above: Performed By: #### NETTIE MARTINRO #### [facility] [address] [place] [address] Dr. Nehemiah Lord UA PROTEIN Negative Normal NEGATIVE/ TRACE [facility] Comment on above: Performed By: #### NETTIE MARTINRO #### [facility] [address] [place] [address] Dr. Nehemiah Lord UR MICRO IND INDICATED Normal [facility] Comment on above: Performed By: #### NETTIE MARTINRO #### [facility] [address] [place] [address] Dr. Nehemiah Lord Urobilinogen Qn (U) 0.2 {Sosa'U}/dL Normal 0.2 - 1. 0 [facility] Comment on above: Performed By: #### NAJMA MARTINICRO #### [facility] [address] [place] [address] Dr. Nehemiah Lord LACTATE/LACTIC ACIDon 2021 Lactate [Moles/Vol] 1.0 mmol/L Normal 0.4-1.9 [facility] Comment on above: Performed By: #### C BC #### [facility] [address] [place] [address] Dr. Nehemiah Lord LIPASEon 09-17-2021 Lipase [Catalytic activity/Vol] 114.0 U/L Normal 73.0-393.0 [facility] Comment on above: Performed By: #### L IPA, CMP, LEELA #### [facility] [address] [address] [address] Nehemiah Lord PROF 14(COMP METB)on 022 Albumin [Mass/Vol] 3.9 g/dL Normal 3.4-5.0 [facility] Comment on above: Performed By: #### L IPA, CMP, LEELA #### [facility] [address] [address] [address] Nehemiah Lord Albumin/Globulin [Mass ratio] 1.0 {ratio} Normal [facility] Comment on above: Performed By: #### L IPA, CMP, LEELA #### [facility] [address] [address] [address] Nehemiah Lord ALP [Catalytic activity/Vol] 81 U/L Normal 46-116 [facility] Comment on above: Performed By: #### L IPA, CMP, LEELA #### [facility] [address] [address] [address] Nehemiah Lord ALT [Catalytic activity/Vol] 26 U/L Normal 14-59 [facility] Comment on above: Performed By: #### L IPA, CMP, LEELA #### [facility] [address] [address] [address] Nehemiah Lord Anion gap [Moles/Vol] 12.3 mmol/L Normal [facility] Comment on above: Performed By: #### L IPA, CMP, LEELA #### [facility] [address] [address] [address] Nehemiah Lord AST [Catalytic activity/Vol] 32 U/L Normal 15-37 [facility] Comment on above: Performed By: #### L IPA, CMP, LEELA #### [facility] [address] [address] [address] Nehemiah Lord Bilirubin [Mass/Vol] 0.4 mg/dL Normal 0.2-1.0 [facility] Comment on above: Performed By: #### L IPA, CMP, LEELA #### [facility] [address] [address] [address] Nehemiah Lord Calcium [Mass/Vol] 9.2 mg/dL Normal 8.5-10.1 [facility] Comment on above: Performed By: #### L IPA, CMP, LEELA #### [facility] [address] [address] [address] Nehemiah Lord Chloride [Moles/Vol] 101 mmol/L Normal 98-107 [facility] Comment on above: Performed By: #### L IPA, CMP, LEELA #### [facility] [address] [address] [address] Nehemiah Lord CO2 [Moles/Vol] 27.5 mmol/L Normal 21.0-32.0 [facility] Comment on above: Performed By: #### L IPA, CMP, LEELA #### [facility] [address] [place] [address] Dr. Nehemiah Lord Creatinine [Mass/Vol] 0.88 mg/dL Normal 0.55-1.02 [facility] Comment on above: Performed By: #### L IPA, CMP, LEELA #### [facility] [address] [place] [address] Dr. Nehemiah Lord EGFR-AF [place] >60 Normal >=60 [facility] Comment on above: Performed By: #### L IPA, CMP, LEELA #### [facility] [address] [place] [address] Dr. Nehemiah Lord EGFR-NON AF [place] >60 Normal >=60 [facility] Comment on above: Performed By: #### L IPA, CMP, LEELA #### [facility] [address] [address] [address] Nehemiah Lord Globulin (S) [Mass/Vol] 4.0 g/dL Normal [facility] Comment on above: Performed By: #### L IPA, CMP, LEELA #### [facility] [address] [place] [address] Dr. Nehemiah Lord Glucose [Mass/Vol] 162 mg/dL Critically high 74-106 [facility] Comment on above: Performed By: #### L IPA, CMP, LEELA #### [facility] [address] [place] [address] Dr. Nehemiah Lord Potassium [Moles/Vol] 3.8 mmol/L Normal 3.5-5.1 [facility] Comment on above: Performed By: #### L IPA, CMP, LEELA #### [facility] [address] [place] [address] Dr. Nehemiah Lord Protein [Mass/Vol] 7.9 g/dL Normal 6.4-8.2 [facility] Comment on above: Performed By: #### L IPA, CMP, LEELA #### [facility] [address] [place] [address] Dr. Nehemiah Lord Sodium [Moles/Vol] 137 mmol/L Normal 136-145 [facility] Comment on above: Performed By: #### L IPA, CMP, LEELA #### [facility] [address] [place] [address] Dr. Nehemiah Lord Urea nitrogen [Mass/Vol] 22.0 mg/dL Critically high 7.0-18.0 [facility] Comment on above: Performed By: #### L IPA, CMP, LEELA #### [facility] [address] [place] [address] Dr. Nehemiah Lord Urea nitrogen/Creatinine [Mass ratio] 25.0 mg/mg Normal [facility] Comment on above: Performed By: #### L IPA, CMP, LEELA #### [facility] [address] [place] [address] Dr. Nehemiah Lord URINE MICROSCOPIC ONLYon BACTERIA NONE SEEN Normal NONE SEEN [facility] Comment on above: Performed By: #### ANA MARTIN #### [facility] [address] [place] [address] Dr. Nehemiah Lord Bacteria identified Cx Nom (U) NOT INDICATED Normal [facility] Comment on above: Performed By: #### NETTIE MARTINRO #### [facility] [address] [place] [address] Dr. Nehemiah Lord CAST NONE SEEN Normal NONE SEEN [facility] Comment on above: Performed By: #### E RUR, UMICRO #### [facility] [address] [place] [address] Dr. Nehemiah Lord Crystals LM Nom (Urine sed) NONE SEEN Normal NONE SEEN [facility] Comment on above: Performed By: #### E RUR, UMICRO #### [facility] [address] [place] [address] Dr. Nehemiah Lord Epithelial cells LM Ql (Urine sed) RARE Normal NONE SEEN /RARE [facility] Comment on above: Performed By: #### E RUR, UMICRO #### [facility] [address] [place] [address] Dr. Nehemiah Lord MUCOUS NONE SEEN Normal NONE SEEN [facility] Comment on above: Performed By: #### E RUR, UMICRO #### [facility] [address] [place] [address] Dr. Nehemiah Lord RBC 2-5 Abnormal 0-2 [facility] Comment on above: Performed By: #### E RUR, UMICRO #### [facility] [address] [place] [address] Dr. Nehemiah Lord WBC 0-2 Abnormal NONE SEEN [facility] Comment on above: Performed By: #### E RUR, UMICRO #### [facility] [address] [place] [address] Dr. Nehemiah Lord Covid-19 PCR ([facility])on 08-26 SARS-CoV-2 (COVID-19) RNA ZACK+probe Ql (Unsp spec) Detected Critically abnormal NOT DETECTED [facility] Comment on above: Result Comment: This test is not yet approved or cleared by the [place] FDA. When there are no FDA-approved or cleared tests available, and other criteria are met, FDA can make tests available under an emergency access mechanism called an Emergency Use Authorization (EUA). The EUA for this test is supported by the [place] of Health and Human Service's (HHS's) declaration [...] used). Performed By: #### C VDTB #### [facility] [address] [place] [address] Dr. Nehemiah Lord SYMPTOMATIC COVID-19 ANTIGEN on 09-11-2021 EUA Statement SEE BELOW Normal [facility] Comment on above: Result Comment: This test [...] sooner. Performed By: #### C BC #### [facility] [address] [place] [address] Dr. Nehemiah Lord SARS-CoV-2 (COVID-19) RNA ZACK+probe Ql (Unsp spec) Negative Normal NEGATIVE [facility] Comment on above: Performed By: #### C BC #### [facility] [address] [place] [address] Dr. Nehemiah Lord CHEMISTRYOrdered By: SYSTEM SYSTEM [...] rate/Area] mL/min/1.73 m2 Normal >=59mL/min/1. 73 m2 [facility] Chem S Glucose [Mass/Vol] 73 mg/dL Normal [...] 4.3 E9/L Normal 4.0 - 11.0 E9/L [facility] HemeAutoSS Vital Signs Date Time Vital Sign Value Performing Clinician Elfego case 12-26-2023 10:29-0400 Body mass index (BMI) [Ratio] 25.42 kg/m2 Jordin Garcia MD Work Phone: [facility] 12-26-2023 10:29-0400 Body weight 63.05 kg Jordin Garcia MD Work Phone: [facility] 12-26-2023 10:29-0400 Diastolic blood pressure 74 mm[Hg] Jordin Garcia MD Work Phone: [facility] 12-26-2023 10:29-0400 Systolic blood pressure 118 mm[Hg] Jordin Garcia MD Work Phone: [facility] 08-03-2022 13:45-0400 Blood Pressure Location Ranjan GONZALEZL [facility] [place] 08-03-2022 13:45-0400 Diastolic blood pressure 98 mm[Hg] Ranjan NILL [facility] [place] 08-03-2022 13:45-0400 Heart rate 72 /min Ranjan NILL [facility] [place] 08-03-2022 13:45-0400 Respiratory rate 16 /min Ranjan NILL [facility] 08-03-2022 13:45-0400 Systolic blood pressure 142 mm[Hg] Ranjan GONZALEZL [facility] 06-15-2022 12:24-0400 Heart rate 66 /min Jacob Alvarez [facility] 06-15-2022 12:24-0400 SaO2% (BldA) [Mass fraction] 97 % Jacob Gonzalezos [facility] 06-15-2022 12:23-0400 Respiratory rate 18 /min Jacob Alvarez [facility] 06-15-2022 12:23-0400 Diastolic blood pressure 64 mm[Hg] Jacob Pocos [facility] 06-15-2022 12:23-0400 Mean blood pressure 79 mm[Hg] Jacob Pocos [facility] 06-15-2022 12:23-0400 Systolic blood pressure 110 mm[Hg] Jacob Pocos [facility] 06-15-2022 09:20-0400 Heart rate 84 /min Jacob Pocos [facility] 06-15-2022 09:20-0400 SaO2% (BldA) [Mass fraction] 91 % Jacob Pocos [facility] 06-15-2022 09:19-0400 Diastolic blood pressure 82 mm[Hg] Jacob Pocos [facility] 06-15-2022 09:19-0400 Mean blood pressure 112 mm[Hg] Jacob Pocos [facility] 06-15-2022 09:19-0400 Systolic blood pressure 172 mm[Hg] Jacob Pocos [facility] 06-15-2022 09:19-0400 Blood Pressure Location Jacob Pocos [facility] 06-15-2022 09:18-0400 Respiratory rate 18 /min Jacob Pocos [facility] 06-15-2022 09:15-0400 SaO2% (BldA) [Mass fraction] 91 % Jacob Pocos [facility] 06-15-2022 09:10-0400 Blood Pressure Location Jacob Pocos [facility] 06-15-2022 09:10-0400 Body temperature 97.7 [degF] Jacob Pocos [facility] 06-15-2022 09:10-0400 Diastolic blood pressure 89 mm[Hg] Jacob Pocos [facility] 06-15-2022 09:10-0400 Heart rate 78 /min Jacob Pocos [facility] 06-15-2022 09:10-0400 Mean blood pressure 103 mm[Hg] Jacob Pocos [facility] 06-15-2022 09:10-0400 Respiratory rate 14 /min Jacob Pocos [facility] 06-15-2022 09:10-0400 Systolic blood pressure 132 mm[Hg] Jacob Pocos [facility] 06-15-2022 09:00-0400 Mean blood pressure 102 mm[Hg] Jacob Pocos [facility] 06-15-2022 09:00-0400 Respiratory rate 8 /min Jacob Pocos [facility] 06-15-2022 08:55-0400 Mean blood pressure 104 mm[Hg] Jacob Pocos [facility] 06-15-2022 08:55-0400 Respiratory rate 17 /min Jacob Pocos [facility] 06-15-2022 08:45-0400 Body temperature 97.34 [degF] Jacob Pocos [facility] 06-15-2022 06:15-0400 Body temperature 97.52 [degF] Jacob Pocos [facility] 06-15-2022 06:15-0400 Heart rate 66 /min Jacob Pocos [facility] 06-15-2022 06:15-0400 Respiratory rate 20 /min Jacob Pocos [facility] 05-28-2022 07:57-0500 Diastolic blood pressure 88 mm[Hg] Jacob Pocos [facility] 05-28-2022 07:57-0500 Heart rate 73 /min Jacob Pocos [facility] 05-28-2022 07:57-0500 Mean blood pressure 108 mm[Hg] Jacob Pocos [facility] 05-28-2022 07:57-0500 Systolic blood pressure 148 mm[Hg] Jacob Pocos [facility] 05-28-2022 07:56-0500 Heart rate 63 /min Jacob Pocos [facility] 05-28-2022 07:56-0500 SaO2% (BldA) [Mass fraction] 99 % Jacob Pocos [facility] 05-28-2022 07:56-0500 Respiratory rate 16 /min Jacob Pocos [facility] 05-28-2022 07:56-0500 Diastolic blood pressure 90 mm[Hg] Jacob Pocos [facility] 05-28-2022 07:56-0500 Mean blood pressure 109 mm[Hg] Jacob Pocos [facility] 05-28-2022 07:56-0500 Systolic blood pressure 148 mm[Hg] Jacob Gonzalezos [facility] 11-25-2021 14:00-0400 Blood Pressure Location Martín Bourne [facility] 11-25-2021 14:00-0400 Diastolic blood pressure 76 mm[Hg] Martín Bourne [facility] 11-25-2021 14:00-0400 Heart rate 78 /min Martín Bourne [facility] 11-25-2021 14:00-0400 Respiratory rate 18 /min Martín Christofferson [facility] 11-25-2021 14:00-0400 SaO2% (BldA) [Mass fraction] 96 % Martín Christofferson [facility] 11-25-2021 14:00-0400 Systolic blood pressure 124 mm[Hg] Martín Christofferson [facility] 10-23-2021 11:09-0400 Blood Pressure Location Annalisesukhi WARREN [facility] 10-23-2021 11:09-0400 Diastolic blood pressure 76 mm[Hg] Annalisesukhi WARREN [facility] 10-23-2021 11:09-0400 Heart rate 70 /min Annalise WARREN [facility] 10-23-2021 11:09-0400 Respiratory rate 18 /min Annalisesukhi WARREN [facility] 10-23-2021 11:09-0400 SaO2% (BldA) [Mass fraction] 100 % Annalisesukhi WARREN [facility] 10-23-2021 11:09-0400 Systolic blood pressure 129 mm[Hg] Annalise WARREN [facility] 09-25-2021 11:47-0400 Blood Pressure Location Martín Christofferson [facility] 09-25-2021 11:47-0400 Diastolic blood pressure 67 mm[Hg] Martín Christofferson [facility] 09-25-2021 11:47-0400 Heart rate 60 /min Martín Christofferson [facility] 09-25-2021 11:47-0400 Respiratory rate 18 /min Martín Christofferson [facility] 09-25-2021 11:47-0400 SaO2% (BldA) [Mass fraction] 100 % Martín Steffen [facility] 09-25-2021 11:47-0400 Systolic blood pressure 132 mm[Hg] Martín Bourne [facility] 08-26-2021 15:28-0400 Diastolic blood pressure 80 mm[Hg] Ranjan NILL [facility] 08-26-2021 15:28-0400 Heart rate 68 /min Ranjan NILL [facility] 08-26-2021 15:28-0400 Mean blood pressure 97 mm[Hg] Ranjan NILL [facility] 08-26-2021 15:28-0400 SaO2% (BldA) [Mass fraction] 98 % Ranjan NILL [facility] 08-26-2021 15:28-0400 Systolic blood pressure 131 mm[Hg] Ranjan NILL [facility] 08-26-2021 15:28-0400 Blood Pressure Location Ranjan NILL [facility] 08-26-2021 15:28-0400 Body temperature 97.7 [degF] Ranjan NILL [facility] 08-26-2021 15:28-0400 Respiratory rate 16 /min Ranjan NILL [facility] 08-26-2021 15:27-0400 Diastolic blood pressure 86 mm[Hg] Ranjan NILL [facility] 08-26-2021 15:27-0400 Heart rate 68 /min Ranjan NILL [facility] 08-26-2021 15:27-0400 Mean blood pressure 105 mm[Hg] Ranjan NILL [facility] 08-26-2021 15:27-0400 SaO2% (BldA) [Mass fraction] 99 % Ranjan NILL [facility] 08-26-2021 15:27-0400 Systolic blood pressure 142 mm[Hg] Ranjan NILL [facility] 08-26-2021 15:27-0400 Blood Pressure Location Ranjan NILL [facility] 08-14-2021 15:15-0400 Blood Pressure Location Ranjan NILL [facility] 08-14-2021 15:15-0400 Diastolic blood pressure 78 mm[Hg] Ranjan NILL [facility] 08-14-2021 15:15-0400 Heart rate 68 /min Ranjan NILL [facility] 08-14-2021 15:15-0400 Respiratory rate 16 /min Ranjan NILL [facility] [place] 08-14-2021 15:15-0400 Systolic blood pressure 120 mm[Hg] Ranjan NILL [facility] [place] Encounters Encounter Date Encounter Type Care Provider Facility Start: 03-27-2024 End: 03-27-2024 Orders Only Jordin Garcia MD Work Phone: [facility] Comment on above: Osteoporosis screeni ng (Primary Dx) Start: 03-23-2024 End: 03-23-2024 ambulatory JORDIN GARCIA Not Available Start: 02-08-2024 End: 02-08-2024 Bamboo flowsheet Belinda Ramirez RECEIVING COORDINATOR-LIP AND GATE BUILDER Work Phone: [facility] Start: 02-08-2024 End: 02-08-2024 Bamboo flowsheet Belinda Ramirez RECEIVING COORDINATOR-LIP AND GATE BUILDER Work Phone: [facility] Start: 02-08-2024 End: 02-08-2024 Office outpatient new 30 minutes Belinda Ramirez RECEIVING COORDINATOR-LIP AND GATE BUILDER Work Phone: [facility] Comment on above: Lentigines (Primary Dx); Actinic keratosis Start: 02-08-2024 End: 02-08-2024 ambulatory BELINDA RAMIREZ Not Available Start: 12-29-2023 End: 12-29-2023 Telephone encounter Jacob Alvarez DO Work Phone: [facility] Start: 12-26-2023 End: 12-26-2023 Patient encounter procedure Jordin Garcia MD Work Phone: [facility] Comment on above: Postmenopausal atrop hic vaginitis (Primary Dx); Encounter for gynecological examination without abnormal finding; Screening for malignant neoplasm of cervix; Encounter for screening mammogram for malignant neoplasm of breast; Postmenopause; Osteoporosis, post-menopausal ([facility] Start: 12-26-2023 End: 12-26-2023 Patient encounter status Jordin Garcia MD Work Phone: [facility] Start: 12-26-2023 End: 12-26-2023 ambulatory JORDIN GARCIA [...] to same day surgery center Jacob Alvarez [facility] Start: 05-28-2022 End: 05-28-2022 Patient encounter procedure Jacob Alvarez [facility] Start: 11-25-2021 End: 11-25-2021 Patient encounter procedure Martín Bourne [facility] Start: 11-04-2021 End: 11-04-2021 Patient encounter procedure Annalise WARREN [facility] Start: 10-23-2021 End: 10-23-2021 Patient encounter procedure Annalise WARREN [facility] Start: 10-09-2021 End: 10-09-2021 Patient encounter procedure Annalise WARREN [facility] Start: 10-05-2021 End: 10-05-2021 Patient encounter procedure Annalise WARREN [facility] Start: 09-25-2021 End: 09-25-2021 Patient encounter procedure Ranjan PEDERSEN [facility]Philipp [facility]el Start: 09-25-2021 End: 09-25-2021 Patient encounter procedure Martín Bourne [facility] Start: 09-17-2021 End: 09-17-2021 Evaluation and management of inpatient DR MARILEE MORA . Facility:[facility] Start: 09-11-2021 End: 09-11-[address] MARILEE MORA . Facility:[facility] Start: 09-11-2021 End: 09-11-[address] MARILEE MORA . Facility:[facility] Start: 08-28-[address] MARILEE MORA . Facili ty:[facility] Start: 08-26-2021 ambulatory Facility:1 [id number] Start: 08-26-2021 End: 08-26-2021 Patient encounter procedure Ranjan GONZALEZFaith [facility] Start: 08-17-2021 End: 10-02-2021 Pre-admission assessment Ranjan GONZALEZL [facility] Start: 08-14-2021 End: 08-14-2021 Patient encounter procedure Ranjan PEDERSEN General Surgery [facility] Procedures Date Procedure Procedure Detail Performing Clinician Start: 03-23-2024 Mammography Jordin elise MD Work Phone: Start: 02-08-2024 CRYOTHERAPY SKIN LESION Belinda Ramirez RECEIVING COORDINATOR-LIP AND GATE BUILDER Work Phone: Start: 03-18-2023 Mammography Jacob Poco [...] for malign ant neoplasm of breast Mammogram [facility] Start: 02-07-2025 End: 02-07-2025 Patient encounter procedure 02/07/2025 9:35 AM EST [facility] [address] [place] [id number] Belinda Ramirez, RECEIVING COORDINATOR-LIP AND GATE BUILDER [address] [place] [address] [facility] Start: 10-30-2024 Screening for malign ant neoplasm of colon [facility] Start: 03-23-2024 End: 03-23-2024 Professional / ancillary services management [facility] [place] Start: 03-19-2024 End: 02-24-2025 DBT Breast - bilateral screening Bilateral screening mammogram with tomosynthesis Imaging Routine Encounter for screening mammogram for malignant neoplasm of breast Expected: 03/19/2024, Expires: 02/24/2025 [facility] Work Phone: Comment on above: Expected: 03/19/2024 , Expires: 02/24/2025 Start: 03-18-2024 Screening for malign ant neoplasm of breast Mammogram [facility] Start: 12-26-2023 End: 12-25-2024 DXA Skeletal system Views for bone density DEXA bone density Imaging Routine Osteoporosis, post-menopausal ([facility]) Expected: 12/26/2023, Expires: 12/25/2024 [facility] Comment on above: Expected: 12/26/2023 , Expires: 12/25/2024 Start: 11-27-2023 Influenza vaccination Influenza Vacc ine (#1) [facility] Start: 2021 Pneumococcal Vaccine : 65+ Years (1 of 1 - PCV) Pneumococcal Vaccine: 65+ Years (1 of 1 - PCV) [facility] Start: 1955 Screening for malign ant neoplasm of colon [facility] Immunizations Immunization Date Immunization Notes Care Provider Fa cility 12-25-2020 SARS-CoV-2 (COVID-19 ) mRNA BNT-162b2 jose manuel PEDERSEN [facility] [place] Comment on above: Result Comment: 2022: [id number] 12-04-2020 SARS-CoV-2 (COVID-19 ) mRNA BNT-162b2 jose manuel PEDERSEN [facility] [place] Comment on above: Result Comment: 2022: [id number] Payers Date Payer Category Payer Private Health Insurance [facility] [id number] 2022 Unknown [facility] [id number] 2022-Present [address] [facility] [place] [address] [id number] 2021 Medicare [id number] 1959 Medicare [id number] 1959 Self-pay 1959 Unknown [id number] 1956 Unknown [id number] [id number]. 2.356 1956 Unknown [id number] 2.16.840.1.563573.3.579. 2.593 1956 Unknown [id number] 2.16.840.1.651222.3.579. 2.593 1956 Unknown [id number] 2.16.840.1.350182.3.579. 2.593 1956 Unknown [id number] 2.16.840.1.436277.3.579. 2.593 1956 Unknown [id number] 2.16.840.1.803157.3.579. 2.593 1956 Unknown [id number] 2.16.840.1.305193.3.579. 2.593 1956 Unknown [id number] 2.16.840.1.125679.3.579. 2.1259 1956 Unknown [id number] 2.16.840.1.736613.3.579. 2.1259 1956 Unknown [id number] 2.16.840.1.026337.3.579. 2.1259 1956 Unknown [id number] 2.16.840.1.905310.3.579. 2.1259 1956 Unknown [id number] 2.16.840.1.530308.3.579. 2.1259 1956 Unknown [id number] 2.16.840.1.389759.3.579. 2.1259 1956 Unknown [id number] 2.16.840.1.420955.3.579. 2.1259 1956 Unknown [id number] [id number]. 2.727 Social History Date Type Detail Facility Start: 08-14-2021 End: 12-26-2023 Tobacco smoking status Ex-smoker (finding) [facility] Tobacco smoking status Never [facility] al [facility] Start: 12-26-2023 End: 02-08-2024 Sex Assigned At Female [facility] Start: 01-05-1976 End: 03-28-1983 History of tobacco use Current smoker [facility] Start: 01-05-1976 End: 03-28-1983 History of tobacco use Cigarette Smoker [facility] Start: 12-26-2023 End: 02-08-2024 Cigarettes smoked current (pack per day) - Reported 0.5 [facility] Start: 12-26-2023 Tobacco use and exposure Smokeless tobacco non-user [facility] Start: 12-26-2023 End: 02-08-2024 Alcoholic beverage intake Ex-drinker (finding) [facility] Start: 12-27-2022 Tobacco Comment I quit many times,seldom smoked more than 1/2 pack [facility] Start: 09-25-2022 Alcohol Comment caffeine: 1-2 cups per day, coffee/tea [facility] Start: 1955 Sex assigned at Female N [facility] Start: 09-14-2022 Gender identity Identifies as female gender (finding) [facility] Medical Equipment Procedure Code Equipment Code Equipment [...] Michaud neela Patel 05-28-2022 Functional Status No [facility] 11-25-2021 Functional Status N/A [facility] 10-23-2021 Functional Status N/A [facility] 09-25-2021 Functional Status N/A [facility] Clinical Notes 09-17-2021 to 03-27-2024 Jordin Garcia MD - 03/27/2024 5:54 PM ESTNatalipierre Ita Ramirez RECEIVING COORDINATOR-LIP AND GATE BUILDER - 02/08/2024 9:35 AM ESTTelephone Encounter - Shara Cuadra - 12/29/2023 3:00 PM EDTPerik Garcia MD - 12/26/2023 10:30 AM EDT Note Date & Type Note Facility 03-27-2024 History of Presen t illness Narrative osteoporosis documented in this encounter [facility] 02-08-2024 History of Presen t illness Narrative [...] Forehead (2), Right Malar Cheek (2), Right Bahai Erythematous scaly papules Patient was counseled regarding [...] limited to risks of scarring, darker or furniture manager pigmentary changes, recurrence, incomplete removal and infection. [...] Forehead (2), Right Malar Cheek (2), Right Bahai Next Visit: 6 months-1 year for FBSE documented in this encounter [facility] 12-29-2023 Miscellaneous Notes Formattin g of this note might be different from the original. Was wanting a referral to a new Dermatology place, [facility] is not working out, said [facility] would give her a name for someone new. documented in this encounter [facility] 12-29-2023 Telephone encount er Note Was wanting a referral to a new Dermatology place, [facility] is not working out, said [facility] would give her a name for someone new. [facility] 12-26-2023 History of Presen t illness Narrative Images from the original note were not included. Jordin Garcia MD Obstetrics and Gynecology Patient: Colette Valente : 1955 (68 y.o.) Yearly Wellness Exam Date: 12/26/2023 Reason for Visit - Chief Complaint Patient presents with Gynecologic Exam LMP: WAYBILL CLERK Last DEXA: 02/25/21 Last Mammogram: 03/18/23 Last [...] for vaginal atrophy documented in this encounter [facility] 06-15-2022 Evaluation + Plan note Extrac catalina from: Title:CSB post op Author:Duglas Hemphill MD Date:06/15/22 Plan Transfer/Discharge: Transfer/Discharge Discharge when meets criteria ( To home ). Extracted from: Title:EDWIGE [place] Author:Duglas Hemphill MD Date:06/15/22 Plan [place] [employer]hesi[employer] (ASA) physical status classification: Class II. Anesthetic Preoperative Plan: Anesthesia General. [facility]03-21-2023 Hospital Discharge instructions Patient Education 06/15/2022 [...] as possible. If the spirometer includes a financial wellness coach indicator, use this to guide you [...] 07/25/2007 Document Revised: 04/06/2018 Document Reviewed: 01/25/2018 [employer] Patient Education 2020 [employer]. 06/15/2022 09:33:41 Knee Cryocuff Patient Instructions - FT (CUSTOM) 06/15/2022 09:33:41 Post Op Patient Instructions - FT (CUSTOM) 06/08/2022 07:21:16 [facility] - Total Knee Arthroplasty. Revised 05/19/11. (Custom) [place], [place] [facility] DISCHARGE INSTRUCTIONS TOTAL KNEE [...] will continue at home, possible with the assistant operations manager of Home Health Physical Therapy or in [...] weeks postop. Jacob Alvarez, DO [facility] [address] [place] [phone] Reviewed: 07-03 Revised 04/08 Follow Up Care 2022 09:14:20 With:Jacob Alvarez Address: [address] [place], [place] [id number]- [facility] (1) When:07/14/2022 10:15:00 [facility]07-01-2022 Hospital Discharge instructions Follow Up Care 09/25/2021 12:09:54 With:Martín Bourne MD Address: When: Unknown Comments:Call for sooner apt with new/worsening symptoms [facility]06-23-2022 NoteOPERATIVE NOTE OPERATION DATE: 09/17/2021 PREOPERATIVE DIAGNOSIS: Incarcerated right femoral hernia with bowel obstruction. POSTOPERATIVE DIAGNOSIS: Incarcerated right femoral hernia with bowel obstruction. PROCEDURE: Repair of right femoral hernia with mesh patch to the weakened inguinal floor. SURGEON: Ranjan Pedersen M.D. ANESTHESIA: General endotracheal as well as local with Exparel solution. GIFT BASKET PACKER: MARGARET Robins INDICATIONS AND CONSENT: Patient is [...] Approved by: DR RANJAN PEDERSEN . 09/18/2021 12:52:00[facility]06-23-2022 NoteHISTORY AND PHYSICAL EXAMINATION Date:09/17/2021 [...] Approved by: DR RANJAN PEDERSEN . 09/18/2021 12:52:00[facility] No data available for this section General Surgery [place] Evaluation + Plan note Future Appointments Appointment Date:09/03/2021 10:00:00 AM Scheduled Provider: Location:[facility] Future Appointments Appointment Date:10/05/2021 01:00:00 PM Scheduled Provider: Location:.[facility] Appointment Type:CV Stress (FT) Appointment Date:10/09/2021 02:00:00 PM Scheduled Provider:Ranjan PEDERSEN MD Location:[facility] Appointment Type: Post Op 15 Appointment Date:10/23/2021 11:00:00 AM Scheduled Provider:Annalise WARREN CNP Location[facility] Appointment Type:Cardiology Follow Up (FT) Future Scheduled Tests Radiology* Echo Transthoracic Complete 09/25/21 * ECG Stress [facility] App[facility]ments Appointment Date:10/05/2021 01:00:00 PM Scheduled [facility]:CV Stress (FT) Appointment Date:10/09/2021 02:00:00 PM Scheduled Provider:Ranjan PEDERSEN MD Location:[facility] Appointment Type: Post Op 15 Appointment Date:10/09/2021 03:00:00 PM Scheduled Provider: [facility] Type:CV Echo (FT) Appointment Date:10/23/2021 11:00:00 AM Scheduled Provider:Annalise WARREN CNP Location:[facility] Appointment Type:Cardiology Follow Up (FT) Future Scheduled Tests Radiology* Echo Transthoracic Complete 10/09/21 * ECG Stress [facility] App[facility]ments Appointment Date:10/09/2021 02:00:00 PM Scheduled Provider:Ranjan PEDERSEN MD Location:[facility] Appointment Type: Post Op 15 Appointment Date:10/09/2021 03:00:00 PM Scheduled Provider: [facility] Type:CV Echo (FT) Appointment Date:10/23/2021 11:00:00 AM Scheduled Provider:Annalise WARREN CNP Location[facility] Appointment Type:Cardiology Follow Up (FT) Future Scheduled Tests Radiology* Echo Transthoracic Complete [facility]09[facility] Future Appointments Appointment Date:10/23/2021 11:00:00 AM Scheduled Provider:Annalise WARREN CNP Location:[facility] Appointment Type:Cardiology Follow Up (FT) General Surgery [place] Evaluation + Plan note Future Appointments Appointment Date:11/25/2021 02:00:00 PM Scheduled Provider:Martín Bourne MD Location:[facility] Appointment Type:Cardiology Follow Up (FT) Future Scheduled Tests Radiology* CTA Chest [facility]23[facility] Future Appointments Appointment Date:11/25/2021 02:00:00 PM Scheduled Provider:Martín Bourne MD Location:[facility] Appointment Type:[facility]iology Follow Up ([facility] Future Appointments Appointment Date:06/15/2022 07:30:00 AM Scheduled Provider: Location:[facility] Surgical Services [facility] Diagnosis Postmenopausal atrophic vaginitis- Primary Encounter for gynecological examination without abnormal finding Screening for malignant neoplasm of cervix Screening for malignant neoplasm of the cervix Encounter for screening mammogram for malignant neoplasm of breast Postmenopause Asymptomatic postmenopausal status (age-related) (natural) Osteoporosis, post-menopausal (CMS/HCC) Senile osteoporosis documented in this encounter [facility]* Diagnosis Lentigines- Primary Actinic keratosis documented in this encounter [facility]* Diagnosis Osteoporosis screening- Primary Special screening for osteoporosis documented in this encounter [facility] Discharge instructions No data available for this section General Surgery [place] Progress note No data available for this section [facility] Summary Purpose Family History No Family History Records FoundNo Family History Records FoundNo Family History Records FoundNo Family History Records FoundNo Family History Records Found Advance Directives No Advanced Directives Records FoundNo Advanced Directives Records FoundNo Advanced Directives Records FoundNo Advanced Directives Records FoundNo Advanced Directives Records Found Additional Source Comments Care Team (unrecognized sect ion and content) Camp Counselor Relationship Specialty Start Date End Date Marilee Mora MD [address] [place] [phone] PCP - General Family Medicine 09/15/22 Camp Counselor Relationship Specialty Start Date End Date Marilee Mora MD [address] [place] [phone] PCP - General Family Medicine 09/15/22 Camp Counselor Relationship Specialty [place] [address] [place] [phone] PCP - General Family Medicine 09/15/22 Camp Counselor Relationship Specialty Start Date End Date Marilee Mora MD [address] [place] [phone] PCP - General Family Medicine 09/15/22 INFORMATION SOURCE (unrecogn ized section and content) DATE CREATED AUTHOR 12/30/2021 [facility] DATE CREATED AUTHOR AUTHOR'S ORGANIZ ATION 03/20/2022 [facility] dical Specialist DATE CREATED AUTHOR AUTHOR'S ORGANIZ ATION 07/23/2022 [facility] DATE CREATED AUTHOR AUTHOR'S ORGANIZ ATION 03/28/2024 [facility] dical Specialists EPIC DATE CREATED AUTHOR AUTHOR'S ORGANIZ ATION 07/21/2024 [facility] Reason for Visit (unrecogniz ed section and [...] BE BASED ON THE PRIMARY CLINICAL RECORDS. [facility] [employer] [facility]. provides no warranty or guarantee of the accuracy or completeness of information in this document.
[2024-11-21 10:35] LABS: Hematocrit 38.6 % (36.0-48.0); Hemoglobin 12.8 g/dL (12.0-16.0); Immature Granulocytes Abs Auto 0.01 10^3/uL (0.00-0.03); Immature Granulocytes Pct Auto 0.3 % (0.0-0.5); Lymphocytes Absolute Auto 1.1 10^3/uL (1.2-3.8); Mean Corpuscular HGB Conc 33.2 g/dL (29.9-35.2); Mean Corpuscular Hemoglobin 30.2 pg (26.7-34.0); Mean Corpuscular Volume 91.0 fL (81.0-99.0); Platelet Count 226 10^3/uL (150-450); Red Blood Count 4.24 10^6/uL (4.20-5.40); White Blood Count 3.8 10^3/uL (4.0-11.0)
== END 2024-11-21 10:17 | disposition home or self-care (01) ==
LOC: LAB 10:16
PROVIDERS: PCP Family Medicine; Visit Provider Family Medicine
DX: D72.9 Disorder of white blood cells, unspecified (principal)
CPT/HCPCS: 36415; 85025

== ENCOUNTER 2025-01-23 11:16 | Outpatient (OUT) | payer OTHER, SELFPAY ==
--- OUTSIDE RECORDS SUMMARY | 2025-01-23 11:20 | XMS_ITS | Clinical Summary ---
Author Organization [employer] [facility] tem Address [id number] [address] [place] [address] Care Team Providers Care Tubing Tester Name Role Phone Evin Mora MD Primary Care Provider [phone] Allergies No known active allergies Medications MedicationSigDispense QuantityRefillsLast FilledStart DateEnd DateStatus simvastatin (ZOCOR) 20 mg tablet Take 20 mg by mouth nightly.Active cetirizine (ZyrTEC) 10 mg tablet Take 10 mg by mouth nightly.Active Active Problems ProblemNoted DateDiagnosed DateOther dajnnxtpkbpsby30/11/2019Seasonal allergies 01/05/2019Primary osteoarthritis of right hip01/04/2019 Social History Tobacco UseTypesPacks/DayYears UsedDateSmoking Tobacco: FormerCigarettes0.416662 - 1984Smokeless Tobacco: NeverAlcohol UseStandard Drinks/WeekCommentsYes0 (1 standard drink = 0.6 oz pure alcohol)rareChildcareAnswerDate RecordedChildcare Zcociem1309/06/2018EmploymentAnswerDate SuzdwhigZxukjhcvdmWqfctsc84/12/2019Purpose - LifeAnswerDate RecordedPurpose and direction in grpuDxceohr90/11/2021 CommentsNoSex and Gender InformationValueDate RecordedSex Assigned at BirthNot on fileLegal IxkOprsey67/06/2015 11:40 AM EDTGender IdentityNot on fileSexual OrientationNot on file Last Filed Vital Signs Vital SignReadingTime TakenCommentsBlood Zrjzqcvz889/7210 5:00 AM EDT Blixo3110 5:00 AM BCGJdauyqgqlry34 ??C (98.6 ??F)01/06/2019 5:00 AM EDT Respiratory Kswe2842 5:00 AM EDTOxygen Uzsqdjcmnr03%01/06/2019 5:00 AM EDTInhaled Oxygen Concentration--Narjex14.2 kg (139 lb 5.3 oz)01/05/2019 10:15 AM GBXOpcmty406 cm (5' 2.21 )01/05/2019 10:15 AM EDTBody Mass Index25.32 01/05/2019 10:15 AM EDT Plan of Treatment Health MaintenanceDue DateLast DoneCommentsDepression Cgfakwhqx70/08/1969Tobacco Qvyvuskkl32/08/1969Adult BMI Ofvkqdtbx46/08/1975DTaP,Tdap and Td Vaccines (1 - Tdap)1975Zoster (Shingles) Vaccine (1 of 2)2006Fall Risk Screening 2021Influenza Sbodufy1911/26/2024 Goals GoalPatient Goal TypeAssociated ProblemsRecent ProgressPatient-Stated?Author Improve mobility Linnette Sanchez, RN Note: Evaluation of progress towards goal: Maximize work with PT at discharge to strengthen R hip Medical Devices ImplantedTypeAreaManufacturerDevice IdentifierShelf Expiration DateModel / Serial / LotShl Actb 50mm Hip 3 Hl Fin Pps - [id number] Implanted:Qty: 1 [facility]: HipZimmer Qmeblo99/30/[id number] / / [id number] Actb G7 Ntrl E1 36mm D - [id number] Implanted:Qty: 1 on 01/05/2019 by Jorge Reeder MD at Replaced by [facility] ImplantRight: HipZimmer Txaale20/22/[id number] / / [id number] Fem 142mm 133d 11 Hi Os - [id number] Implanted:Qty: 1 on 01/05/2019 [facility]: HipZimmer Mkxagk27/07/[id number] / / [id number] Fem Opt -6mm Tpr Hip Blx D Rpl 650-1064 - [id number] Implanted:Qty: 1 on 01/05/2019 [facility]: HipZimmer Dlbwft26/12/[id number] / / [id number] Fem 36mm Opt Shl Actb G7 Bl Rpl 650-1057 - [id number] Implanted:Qty: 1 on 01/05/2019 by Jorge Reeder MD at Replaced by [facility] ImplantRight: HipZimmer Fqatix39/31/[id number] / / [id number] Insurance Advance Directives TypeDate RecordedPatient RepresentativeExplanationLiving Will12/21/2018 10:43 AM Care Teams Team MemberRelationshipSpecialtyStart DateEnd Evin Mora MD PCP - GeneralFamily Medicine12/21/18
--- OUTSIDE RECORDS SUMMARY | 2025-01-23 11:20 | XMS_ITS | Clinical Summary ---
Author Organization [facility] Address [address] [place] [address] Care Team Providers Care Auto Emissions Technician Name Role Phone Evin Mora MD Primary Care Provider [phone] Allergies No known active allergies Medications MedicationSigDispense QuantityRefillsLast FilledStart DateEnd DateStatus citalopram (CeleXA) 10 MG tablet TAKE 1 TAB BY MOUTH EVERY DAY08/08/2022ctive simvastatin (Zocor) 20 MG tablet Take 20 mg by mouth in the morning.Active multivitamin (Theragran) tablet Take 1 tablet by mouth in the morning.Active b complex vitamins capsule Take 1 capsule by mouth in the morning.Active Turmeric (QC Tumeric Complex) 500 MG capsule TumericActive Calcium Carb-Cholecalciferol (CALCIUM 1000 + D PO) 07/22/2022ctive cephalexin (Keflex) 500 MG capsule Indications:Presence of right artificial knee joint,Left knee pain, unspecified chronicity,Presence of left artificial knee jointTake all 4 capsules one hour before the procedure. 4 capsule 07/06/2023ctive Additional Information Patient not taking.Reported on 02/08/2024 raloxifene (Evista) 60 MG tablet Indications:Age related osteoporosis, unspecified pathological fracture presence TAKE 1 TABLET BY MOUTH EVERY DAY 90 tablet ctive Tretinoin (Altreno) 0.05 % lotion Indications:LentiginesApply thin layer to face at bedtime 45 g ctive Active Problems No known active problems Family History Medical HistoryRelationNameCommentsHeart diseaseFatherDadOsteoporosisFatherDad StrokeFatherDadBrain cancerFather's BrotherBobCancerFather's BrotherBobMental illnessMaternal GrandfatherHeart diseaseMaternal GrandmotherHeart diseaseMother Mental illnessMotherDiabetesPaternal GrandmotherFlorence MillesonHeart disease SiblingRelationNameStatusCommentsFatherDadDeceasedFather's BrotherBobAlive Maternal GrandfatherMaternal GrandmotherMotherDeceasedPaternal Grandmother Lachelle Ureñaibdarrel Social History Tobacco UseTypesPacks/DayYears UsedDateSmoking Tobacco: FormerCigarettes0.58 01/05/1976 - 03/28/1983Smokeless Tobacco: Never Tobacco Cessation:Counseling Given: Not Answered Comments:I quit many times,seldom smoked more than 1/2 pack Alcohol UseStandard Drinks/WeekCommentsNot Currently0 (1 standard drink = 0.6 oz pure alcohol)caffeine: 1-2 cups per day, coffee/teaPHQ-2AnswerDate Recorded Patient Health Questionnaire-2 [id number] and Gender InformationValueDate RecordedSex Assigned at NkznsDsochk95/20/2023 6:26 PM EDT Legal JjyHfjshg15/15/2023 7:06 PM EDTGender UouvwljeEtgypg25/20/2023 6:26 PM EDT Sexual OrientationNot on file Last Filed Vital Signs Vital SignReadingTime TakenCommentsBlood Lqxrzakk818/7412/26/2023 10:29 AM EDT Pulse--Mgpnyqbezmp11.6 ??C (97.8 ??F)12/27/2022 9:18 AM EDTRespiratory Rate-- Oxygen Saturation--Inhaled Oxygen Concentration--Ddygzh33 kg (139 lb)12/26/2023 10:29 AM PQYSyzwhm728.5 cm (5' 2 )07/06/2023 9:27 AM EDTBody Mass Index25.42 07/06/2023 9:27 AM EDT Plan of Treatment DateTypeDepartmentCare Team (Latest Contact Info)Nxyhfiqpxbw37/13/2025 9:35 AM ESTOffice Visit [facility] [address] [place] [phone] Belinda Ramirez, HAT MODEL-AGRICULTURE RESEARCH DIRECTOR [address] [place] [address] Medical Devices ImplantedTypeAreaManufacturerDevice IdentifierShelf Expiration DateModel / Serial / LotBreast ImplantBreast ImplantBilateral: Breast Insurance Care Teams Team MemberRelationshipSpecialtyStart Date Evin Mora MD PCP - GeneralFamily Medicine09/15/22
--- OUTSIDE RECORDS SUMMARY | 2025-01-23 11:20 | XMS_ITS | Clinical Summary ---
Author Organization [facility] Address [address] [place] [address] Phone Care Team Providers Care Hired Hand Name Role Phone Unavailable Primary Care Provider Unavailabl e Social History Tobacco UseTypesPacks/DayYears UsedDateSmoking Tobacco: Never Assessed CommentsUnknownSex and Gender InformationValueDate RecordedSex Assigned at Not on fileLegal YrfUixmfx62/26/2022 7:23 PM ESTGender IdentityNot on fileSexual OrientationNot on file Plan of Treatment Not on file
--- OUTSIDE RECORDS SUMMARY | 2025-01-23 11:20 | XMS_ITS | Patient Health Record ---
Author Organization [facility] in [place] Address [address] [place] [address] Care Team Providers Care [place] Name Role Phone Vikram Mora Primary Care Provider Allergies Allergen (clinical drug ingredient) Drug/Non Drug Allergy documented on EMR Reaction Allergy Type Onset Date Status alendronate Fosamax bad diarrhea Drug Allergy Active Results Component Value Reference Range Notes MAGNESIUM Reviewed date:10/22/2024 01:09:55 PM Interpretation: Performing Lab: Notes/Report: [facility] , Magnesium 2.0 1.8-2.4 mg/dL Performing Lab:see noteML - [facility] LBFREE T3 Reviewed date:10/22/2024 01:09:55 PM Interpretation: Performing Lab: Notes/Report: [facility] ,Free T32.442.18-3.98 pg/mLPerforming Lab:see noteML - [facility] LB LIPID PROFILE Reviewed date:10/22/2024 01:09:55 PM Interpretation: Performing Lab: Notes/Report: [facility] ,Uayavkipxtvza27<=150 mg/mWIrjiehlqhpd786<=200 mg/dLHDL Kuzakdtjxxm6283-55 mg/dL > or =60 mg/dl - LOW CARDIOVASCULAR RISK <40 mg/dl - HIGH CARDIOVASCULAR RISK LDL Cholesterol Huklvmmlff53.0 <100 mg/dl OPTIMAL 100-129 mg/dl NEAR OR ABOVE OPTIMAL 130-159 mg/dl BORDERLINE HIGH 160-189 mg/dl HIGH >190 mg/dl VERY HIGH VLDL XQAAKQSNULW83.8Chol HDL Ratio2.0 3.3 - 4.4 LOW RISK 4.4 - 7.1 AVERAGE RISK 7.1 - 11.0 MODERATE RISK >11.0 HIGH RISK Performing Lab:see noteML - [facility] LBPROF 14(COMP METB) Reviewed date:10/22/2024 01:09:55 PM Interpretation: Performing Lab: Notes/Report: [facility] ,Ilzjyn837530-568 mmol/LPotassium4.43.5-5.1 mmol/NCrzdkxfw29826-238 mmol/LCarbon Lfpxivl37.921.0-32.0 mmol/LAnion Gap12.5Yisczip44599-153 mg/dLBlood Urea Hbnorsfa47.07.0-18.0 mg/dLCreatinine0.870.55-1.02 mg/dLEstimated GFR ( Adeola>60>=60 mL/min/1.73m 2Estimated GFR (Non- Aminata>60>=60 mL/min/1.73m 2BUN Creatinine Ratio20.6Jtnhfcx6.38.5-10.1 mg/dLBilirubin Total0.50.2-1.0 mg/dL Aspartate Amino Bquhgigxjui3484-41 U/LAlanine Mclquqbvgrozdchg8370-98 U/L Alkaline Htwvtfeslob4624-383 U/LTotal Protein7.76.4-8.2 g/dLAlbumin Level3.73.4- 5.0 g/dLGlobulin4.0Albumin Globulin Ratio0.9Performing Lab:see noteML - [facility] LBT4 Reviewed date:10/22/2024 01:09:55 PM Interpretation: Performing Lab: Notes/Report: [facility] ,T4 Thyroxine7.404.80-13.90 ug/dLPerforming Lab:see noteML - [facility] LBTSH Reviewed date:10/22/2024 01:09:55 PM Interpretation: Performing Lab: Notes/Report: [facility] ,Thyroid Stimulating Hormone1.6700.358-3.740 uIU/mLPerforming Lab:see note - [facility] LBCBC AUTO DIFF Reviewed date:11/21/2024 06:48:18 PM Interpretation: Performing Lab: Notes/Report: [facility] ,White Blood Count3.84.0-11.0 10 3/uLRed Blood Count4.244.20-5.40 10 6/uL Htdeowdbtr83.812.0-16.0 g/wVZkczasawnu43.636.0-48.0 %Mean Corpuscular Hqyhxg97.0 81.0-99.0 fLMean Corpuscular Xrndynjoib86.226.7-34.0 pgMean Corpuscular HGB Conc 33.229.9-35.2 g/dLRed Cell Distribution Width13.111.0-15.0 %Platelet Stywq278 150-450 10 3/uLMean Platelet Volume9.99.5-13.5 fLNeutrophils Percent Auto55.2 43.0-75.0 %Lymphocytes Percent Auto27.720.5-60.0 %Monocytes Percent Auto11.01.7- 12.0 %Eosinophils Percent Auto4.20.9-7.0 %Basophils Percent Auto1.60.2-2.0 % Immature Granulocytes Pct Auto0.30.0-0.5 %Neutrophils Absolute Auto2.11.4-6.5 10 3/uLLymphocytes Absolute Auto1.11.2-3.8 10 3/uLMonocytes Absolute Auto0.40.3-0.8 10 3/uLEosinophils Absolute Auto0.20.0-0.7 10 3/uLBasophils Absolute Auto0.10.0- 0.1 10 3/uLImmature Granulocytes Abs Auto0.010.00-0.03 10 3/uLPerforming Lab:see noteML - [facility] LBIRON Reviewed date:10/22/2024 01:09:55 PM Interpretation: Performing Lab: Notes/Report: [facility] ,Ukak799.050.0-170.0 ug/dLPerforming Lab:see noteML - [facility] LB GLYCOHEMOGLOBIN A1C Reviewed date:10/22/2024 01:09:55 PM Interpretation: Performing Lab: Notes/Report: [facility] ,Glycohemoglobin A1C5.54.5-6.2 % ADA RECOMMENDED LIMIT 4.0 - 6.0 ADA THERAPEUTIC TARGET < 7.0 ACTION SUGGESTED > 7.0 Estimated Average Zoafarj590Elotlckyyr Lab:see noteML - [facility] LB CBC AUTO DIFF Reviewed date:10/22/2024 01:09:55 PM Interpretation: Performing Lab: Notes/Report: [facility] ,White Blood Count3.54.0-11.0 10 3/uLRed Blood Count4.084.20-5.40 10 6/uL Donzpvwmio88.412.0-16.0 g/bAJodrqxktug54.336.0-48.0 %Mean Corpuscular Dbmvuc36.4 81.0-99.0 fLMean Corpuscular Opmartplnm51.426.7-34.0 pgMean Corpuscular HGB Conc 33.229.9-35.2 g/dLRed Cell Distribution Width13.111.0-15.0 %Platelet Rzehb089 150-450 10 3/uLMean Platelet Izhmzq27.29.5-13.5 fLNeutrophils Percent Auto56.2 43.0-75.0 %Lymphocytes Percent Auto28.220.5-60.0 %Monocytes Percent Auto8.51.7- 12.0 %Eosinophils Percent Auto5.10.9-7.0 %Basophils Percent Auto1.70.2-2.0 % Immature Granulocytes Pct Auto0.30.0-0.5 %Neutrophils Absolute Auto2.01.4-6.5 10 3/uLLymphocytes Absolute Auto1.01.2-3.8 10 3/uLMonocytes Absolute Auto0.30.3-0.8 10 3/uLEosinophils Absolute Auto0.20.0-0.7 10 3/uLBasophils Absolute Auto0.10.0- 0.1 10 3/uLImmature Granulocytes Abs Auto0.010.00-0.03 10 3/uLPerforming Lab:see noteML - [facility] LB Reason For Referral No Information Medications Medication SIG (Take, Route, Frequency, Duration) Notes Start Date End Date Status Calcium 500 MG 1 tablet with meals Orally Once a day ActiveMeloxicam 15 MG1 tablet Orally Once a day; Duration: 30 days01/02/2025 ActiveReclastActiveSimvastatin 20 MGTAKE 1 TABLET BY MOUTH EVERY DAY; Duration: 90ActiveMulti Vitamin -1 tablet Orally Once a dayActiveMagnesium 200 MG1 tablet with a meal Orally Q HSActiveCitalopram Hydrobromide 10 MGTAKE 1 TABLET BY MOUTH EVERY DAY; Duration: 90ActiveTriamcinolone Acetonide 0.1 %1 application Externally bid5ActiveZyrTEC Allergy 10 MG1 tablet Orally Once a day ActiveTurmeric 500 MGas directed OrallyActive Social History Tobacco Use: Social History Observation Description Date Details (start date - stop date) Former Smoker 03/28/1976 - 03/28/1983 Tobacco Use/Smoking Question Answer Notes Patient is a former smoker When did you start smoking?03/28/1976When did you stop smoking?03/28/1983How long has it been since you last smoked?> 10 yearsAlcohol Screen (Audit-C) Question Answer Notes Did you have a drink containing alcohol in the p ast year? No Ugapsz8MiftcxxxpzoiniLkzrdqbwGWKXR-I (Standard) Question Answer Notes Did you have a drink containing alcohol in the p ast year? Yes How often did you have six or more drinks on one occasion in the past year?Never (0 point)How many drinks did you have on a typical day when you were drinking in the past year?1 or 2 drinks (0 point)How often did you have a drink containing alcohol in the past year?Monthly or less (1 point)Hnyrwq3YeclwoaobmreqyBvwtbydq Problems Problem Type SNOMED Code ICD Code Onset Dates Problem Status W/U Status Risk Notes Problem Magnesium deficiency (371320672) Magnesiu m deficiency (E61.2) ActiveconfirmedProblemSwollen abdomen (55549476)Right lower quadrant abdominal swelling, mass and lump (R19.03)ActiveconfirmedProblemEdema (81442035)Edema (R60.9)ActiveconfirmedProblemPeripheral venous insufficiency (92591854)Venous insufficiency (I87.2)ActiveconfirmedProblemOsteopenia (285623214)Osteopenia (M85.80)ActiveconfirmedProblemInsomnia (440828084)Insomnia (G47.00)Active confirmedProblemEczema (51673550)Eczema (L30.9)ActiveconfirmedProblemSebaceous cyst (464606783)Sebaceous cyst (L72.3)ActiveconfirmedProblemSinusitis (49956633) Sinusitis (J32.9)ActiveconfirmedProblemAllergic rhinitis (36880449)Allergic rhinitis (J30.9)ActiveconfirmedProblemImpacted cerumen (93126326)Cerumen impaction (H61.20)ActiveconfirmedProblemDiarrhea (54308938)Diarrhea (R19.7) ActiveconfirmedProblemAcute bronchitis (26402402)Acute bronchitis (J20.9)Active confirmedProblemArthritis of wrist (3949330524940)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)Active confirmedProblemConjunctivitis (9490374)Conjunctivitis (H10.9)Activeconfirmed ProblemContact dermatitis (30787084)Contact dermatitis (L25.9)Activeconfirmed ProblemInternal derangement of knee (98945704)Internal derangement of knee (M23.90)ActiveconfirmedProblemIrritable bowel syndrome (68850638)Irritable bowel disease (K58.9)ActiveconfirmedProblemWhite blood cell disorder (52137246) Abnormal white blood cell (WBC) count (D72.9)ActiveconfirmedProblemSmall bowel obstruction (140434358)Small bowel obstruction (K56.609)ActiveconfirmedProblem Osteoarthritis of knee (876784976)Osteoarthritis of right knee (M17.11)Active confirmedProblemDisease caused by Severe acute respiratory syndrome coronavirus 2 (disorder) (837397326)COVID-19 virus infection (U07.1)ActiveconfirmedProblem Headache (60371507)Headache, unspecified (R51.9)ActiveconfirmedProblemAcute Laryngitis (9210104)Acute laryngitis, without mention of obstruction (J04.0) Activeconfirmed Vital Signs Temperature 99.0 degrees Fahrenheit 09/07/2024 Blood pressure gdxugfanf83 mm Hg01/02/20259798Mzjerh54 in01/02/2025lood pressure urgralnu120 mm Hg01/02/20255408Hheaqd751.8 lbs1MI25.02 kg/m201/02/2025 Encounters Encounter Location Date Provider Diagnosis [facility] [address] [place] [address] 10/22/2024 Vikram Mora Abnormal white blood cell (WBC) count D72.9 [facility] [address] [facility] [place] [address] 11/21/2024 Vikram Hoy [facility] [facility] [place] [address] 02/09/2024oug HoyHeadache, unspecified R51.9 ; Edema R60.9 ; Insomnia G47.00 and Encounter for Medicare annual wellness exam Z00.00[facility] [facility] [place] [address]/12/2024Doug [facility] [facility] [place] [address]/02/2025 Vikram [facility] [facility] [place] [address]/Doug [facility] [facility] [place] [address]/09/2024Doug HoyIrritable bowel disease K58.9[facility] [facility] [place] [address]/ Vikram HoyAcute bronchitis, unspecified organism J20.9[facility] [place] [address]/Doug HoyIrritable bowel disease K58.9 ; Magnesium deficiency E61.2 ; Allergic rhinitis J30.9 and EgxldydwkaL10.80[facility] [facility] [place] [address]/10/2024Doug HoyWrist arthritis M19.90[facility] [address] [place] [address]/oug HoyEncounter for Medicare annual wellness exam Z00.00 Assessments Encounter Date Diagnosis (ICD Code) Assessment Notes Treatment Notes Treatment Clinical Notes Section Notes 02/09/2024 Encounter for Medicare annual we llness exam (ICD-10 - Z00.00) 07/02/2024Irritable bowel disease (ICD-10 - K58.9)09/07/2024ute bronchitis, unspecified organism (ICD-10 - J20.9)Rest and drink more liquids, especially water. You may use a humidifier or vaporizer to help keep the drainage moist. Tgdx-ayl-rfrhyfb Nasal Saline may help the stuffy and runny nose. Use Ibuprofen and or Tylenol as needed for fever, chills, body aches or pain. Children 5 years old should not be given mmlk-jlh-smlbuyu cough and cold medications such as guaifenesin and dextromethorphan. If you're over age 5, you may try orjj-xoq-cpaapge cold medications such as guaifenesin and dextromethorphan, or multi-symptom cold reliever such as Dayquil to help reduce the symptoms. Antibiotics have been prescribed. You should take these until completed and follow the directions. Antibiotics can sometimescause upset stomach, and in rare cases, serious [...] chest pain you should go to [facility] room or call [id number] bowel disease (ICD-10 - K58.9)stabel off meds10/22/2024Magnesium deficiency (ICD-10 - E61.2)checing labs01/02/2025 Wrist arthritis (ICD-10 - M19.90)02/09/2024Headache, unspecified (ICD-10 - R51.9)02/09/2024Edema (ICD-10 - R60.9)10/22/2024bnormal white blood cell (WBC) count (ICD-10 - D72.9)02/09/2024Insomnia (ICD-10 - G47.00)10/22/2024llergic rhinitis (ICD-10 - J30.9)stabel for [place]10/22/2024Osteopenia (ICD-10 - M85.80)on wkolky4802/09/2024[facility] for Medicare annual wellness exam (ICD-10 - Z00.00) Plan Of Treatment Pending Test Test Name Order Date HEMOGLOBIN A1C (GLYCO) 10/22/2024 IRON, TOTAL 10/22/2024 LIPID PANEL (CHOL/TRIG/HDL/LDL) 10/23/19 25 US Lower Extremity RT 02/03/2023 COMPREHENSIVE METABOLIC PROFILE WITH GFR 02/09/2024 OCCULT BLOOD, FECAL, IMMUNOASSAY 024 CBC W/AUTO DIFF 02/09/2024 CBC AUTO DIFF 10/22/2024 GLYCOHEMOGLOBIN A1C 02/09/2024 THYROID PANEL (T4/TSH/FREE T3) THYROID PANEL (T4/TSH/FREE T3) Vitamin D 02/09/2024 Lipid Panel 02/09/2024 CMP (COMP MET DAILEY) w/eGFR CKD-EPI 2024 CBC WITH DIFF 10/22/2024 Insurance Providers Payer Name Payer Address Payer Phone Subscriber Number Group Number Insured Name Patient Relationship to Insured Coverage Start Date Coverage End Date [employer] [address] [place] [id number] Dalia Valente - patient is the insured Medications Administered Medication Instructions Date of Administration Dosage Notes Ketorolac Tromethamine 560 mgTriamcinolone 40 mg/ml580 mg Medical (General) History Medical History History ICD [...]
== END 2025-01-23 11:17 | disposition home or self-care (01) ==
LOC: PST 11:17
PROVIDERS: PCP Family Medicine; Visit Provider Surgery
DX: Z01.818 Encounter for other preprocedural examination (principal); Z12.11 Encounter for screening for malignant neoplasm of colon

== ENCOUNTER 2025-01-30 06:40 | Day surgery (SDC) | payer OTHER, SELFPAY ==
--- NOTE | 2025-01-30 | OP_ITS ---
OPERATION DATE: 01/30/2025 PREOPERATIVE DIAGNOSIS: Colorectal screening. POSTOPERATIVE DIAGNOSIS: Normal colonoscopy to cecum PROCEDURE: Colonoscopy to cecum. SURGEON: Doyle Pedersen M.D. ANESTHESIA: Monitored anesthesia care. ESTIMATED BLOOD LOSS: Zero. INDICATIONS AND CONSENT: Patient is a 69-year-old female presents for colorectal screening. Indications, risks, benefits, alternatives of proceeding with colonoscopy were explained extensively to the patient, including the risks of bleeding, colon perforation or anesthetic complications. All of her questions were answered. Informed consent was obtained. PROCEDURE: Patient brought to the operating room, placed in the left lateral decubitus position. Monitored anesthesia care was provided. Rectal exam was performed which showed no masses or blood. The scope was inserted into the anal canal. Under direct visualization was advanced. With the aid of abdominal compression, it was advanced to the cecum where cecal markings were clearly identified. There was noted to be a good prep. Upon withdrawal of the scope, mucosal surfaces were carefully examined. There were no mass lesions or polyps. No inflammatory changes or ulcerations. No significant diverticulosis. The scope was retroflexed in the anal canal. There was no significant hemorrhoidal disease. Scope was then withdrawn. Patient tolerated procedure well, was sent to recovery room in good condition. Follow up screening colonoscopy should be in 10 years if patient remains in good health. CC: Eivn Mora M.D. XIMENA
--- OUTSIDE RECORDS SUMMARY | 2025-01-30 06:42 | XMS_ITS | CCD ---
Author Organization [facility] Care Team Providers Care Buttermilk Drier Operator Name Role Phone Gen Munoz Primary Care Physician Marilee Saeed Primary Care Physician [phone] HOY ., DR HUNT Primary Care Unavailable [...] NILL ., DR WOODRUFF Procedure Practitioner Unanimoi awaisle HOY ., DR HUNT Admitting Unavailable HOY ., DR HUNT Attending Unavailable HOY ., DR HUNT Consulting Unavailable NILL ., DR WOODRUFF Consulting Unavailable RONALD JORDAN Consulting Unavailable AGUBOSIANÍBAL Alas Consulting Unavailable BRANDON GARCIA Consulting Unavailable Marilee Saeed MD Primary Care Provider [phone] POCJACOB BRADLEY Referring Unavailable POCJACOB BRADLEY Attending Unavailable JORDIN GARCIA Attending Unavailable BELINDA RAMIREZ Attending Unavailable JORDIN GARCIA Referring Unavailable Marilee Saeed MD Primary Care Provider [phone] Mala De León Attending Provider Mala Dukes Attending Unavailable Mala Dukes Admitting Unavailable Marilee Saeed Primary Care Unavailable Ranjan NORWOOD Attending Unavailable Allergies Allergy ClassificationReported Allergen(s)Allergy TypeDate of OnsetReaction(s) Facility (1 source)No Known Medication Allergies; Translations: [No Known Medication Allergies]Propensity to adverse reactions (disorder)[facility] Medications Current Medications MedicationDrug Class(es)DatesSig (Normalized)Sig (Original)Ascorbic Acid / Collagen (2 sources)Vitamin CStart: 18-92-8541hxhg 3 tablets by mouth twice dailyascorbic acid-collagen 3 tab(s), Oral, BID, Refill(s) 0, Prophylaxis Start Date: 05/28/22 Status: Orderedaspirin 81 mg delayed release oral tablet (2 sources)Platelet Aggregation Inhibitor, Nonsteroidal Anti-inflammatory Drug Start: 41-90-4156jnzm 1 tablet by mouth twice dailyaspirin 81 mg Oral EC Tab 81 mg = 1 tab(s), Oral, BID, # 60 tab(s), Refills(s) 0, Pharmacy: [facility], 163, cm, 05/31/22 6:43:00 EST, Height/Length Dosing, 62.6, kg, 05/31/22 6:43:00EST, Weight Dosing Start Date: 06/15/22 Status: Orderedb complex vitamins capsule (7 sources)take 1 capsule by mouth in the morningb complex vitamins capsule Take 1 capsule by mouth in the morning. ActiveCalcium Carb-Cholecalciferol (CALCIUM 1000 + D PO) (7 sources)Start: 02-93-4597Xwtovrk Carb-Cholecalciferol (CALCIUM 1000 + D PO) 07/22/2022 Activecalcium carbonate 1500 mg oral tablet (14 sources)Start: 15-47-5769xano 1 tablet by mouth once dailycalcium (as carbonate) 600 mg oral tablet 600 mg = 1 tab(s), Oral, Daily, Prophylaxis Start Date: 08/26/21 Status: Ordered Repeat number: 1cefadroxil 500 mg oral capsule (1 source)Cephalosporin AntibacterialStart: 06-15-2022 End: 83-55-7493datc 1 capsule by mouth every twelve hourscefadroxil 500 mg Cap 500 mg = 1 cap(s), Oral, q12hr, X 2 day(s), # 4 cap(s), Refills(s) 0, Pharmacy: [facility], 163, cm, 05/31/22 6:43:00 EST, Height/Length Dosing, 62.6, kg, 05/31/22 6:43:00 EST, Weight Dosing Start Date: 06/15/22 Stop Date: 06/17/22 Status: OrderedCelebrate Multivitamin oral capsule (14 sources)Start: 05-18-3556arpr 1 tablet by mouth once dailyCelebrate Multivitamin oral capsule 1 tab, Oral, Daily, Prophylaxis Start Date: 08/26/21 Status: Ordered Repeat number: 1Start: 82-29-4513ebib 1 tablet by mouth once dailyCelebrate Multivitamin oral capsule 1 tab, Oral, Daily, Prophylaxis Start Date: 08/26/21 Status: Orderedcephalexin 500 mg oral capsule (7 sources)Cephalosporin AntibacterialStart: 04-40-9400abjmdqgvnd (Keflex) 500 MG capsule Indications: Presence of right artificial knee joint , Left kneepain, unspecified chronicity , Presence of left artificial knee joint Take all 4 capsules one hour before the procedure. 4 capsule 07/06/2023 Activecetirizine hydrochloride 10 mg oral tablet (11 sources)Histamine-1 Receptor AntagonistStart: 06-59-6262lppm 1 tablet by mouth once dailycetirizine 10 mg Tab 10 mg = 1 tab(s), Oral, Daily, Refills(s) 0, Allergy symptoms Start Date: 08/12/21 Status: Orderedcitalopram 10 mg oral tablet (20 sources)Serotonin Reuptake InhibitorStart: 65-46-5297nodc 1 tablet by mouth once dailycitalopram (CeleXA) 10 MG tablet TAKE 1 TAB BY MOUTH EVERY DAY 08/08/2022 Activedocusate sodium 100 mg oral capsule (1 source)Start: 41-00-2921ynsb 1 capsule by mouth twice daily as needed for constipationColace 100 mg Cap 100 mg = 1 cap(s), Oral, BID, PRN for constipation, # 40 cap(s), Refills(s) 0, Pharmacy: [facility], 163, cm, 05/31/22 6:43:00 EST, Height/Length Dosing, 62.6, kg, 03/06/23 6:43:00 EST, Weight Dosing Start Date: 06/15/22 Status: Orderedmeloxicam 7.5 mg oral tablet (2 sources)Nonsteroidal Anti-inflammatory DrugStart: 18-96-0346xrbb 1 tablet by mouth once dailymeloxicam 7.5 mg Tab 7.5 mg = 1 tab(s), Oral, Daily, Refills(s) 0 Start Date: 07/28/22 Status: Ordered Repeat number: 1multivitamin (Theragran) tablet (7 sources)take 1 tablet by mouth in the morningmultivitamin (Theragran) tablet Take 1 tablet by mouth in the morning. Activeondansetron 4 mg oral tablet (11 sources)Serotonin-3 Receptor AntagonistStart: 06-97-0956iuxs 1 tablet by mouth every six hours as needed for nauseaZofran 4 mg Tab 4 mg = 1 tab(s), Oral, q6hr, PRN Nausea, # 10 tab(s), Refills(s) 0, Pharmacy: [facility] #[id number], 159, cm, 08/26/21 15:41:00 EDT, Height/Length Dosing, 60.8, kg, 08/26/21 15:41:00 EDT, Weight Dosing Start Date: 09/18/21 Status: OrderedoxyCODONE hydrochloride 5 mg oral tablet (1 source)Opioid AgonistStart: 27-93-2604adsUSOWPF 5 mg Tab 5 mg = 1 tab(s), Oral, As Directed, 1-2 po q4-6 hrs prn pain Dx: M17.11, Z96.651Duration: 7days, # 40 tab(s), Refills(s) 0, Pharmacy: [facility], 163, cm, 236:43:00 EST, Height/Length Dosing, 62.6, kg, 05/31/22 6:43:00 EST,... Start Date: 06/15/22 Status: Orderedraloxifene hydrochloride 60 mg oral tablet (20 sources)Estrogen Agonist/AntagonistStart: 84-35-8883ixiz 1 tablet by mouth once dailyraloxifene (Evista) 60 MG tablet Indications: Age related osteoporosis, unspecified pathological fracture presence (CMS/HCC) TAKE 1 TABLET BY MOUTH EVERY DAY 90 tablet 2 11/21/2023 Activesimvastatin 20 mg oral tablet (20 sources)HMG-CoA Reductase InhibitorStart: 83-35-3493waip 1 tablet by mouth once daily at bedtimesimvastatin 20 mg Tab 20 mg = 1 tab(s), Oral, Once a day (at bedtime), Refills(s) 0, High cholesterol Start Date: 08/12/21 Status: Ordered Repeat number: 1tretinoin 0.5 mg/ml topical lotion (3 sources)RetinoidStart: 32-36-0855Ntergyzcz (Altreno) 0.05 % lotion Indications: Lentigines Apply thin layer to face at bedtime 45 g 11 02/08/2024 Activeturmeric extract 500 mg oral capsule (9 sources)Start: 39-24-4122pggr 1 capsule by mouth once dailyturmeric 500 mg oral capsule 500 mg = 1 cap(s), Oral, Daily, Refills(s) 0, Prophylaxis Start Date: 05/28/22 Status: OrderedTurmeric (QC Tumeric Complex) 500 MG capsule Tumeric ActiveVitamin B Complex oral capsule (14 sources)Start: 34-41-9216eite 1 capsule by mouth once dailyVitamin B Complex oral capsule 1 cap(s), Oral, Daily, Prophylaxis Start Date: 08/26/21 Status: Ordered Repeat number: 1Start: 44-40-5445npxb 1 capsule by mouth once daily Vitamin B Complex oral capsule 1 cap(s), Oral, Daily, Prophylaxis Start Date: 08/26/21 Status: Ekmjwvi246 ml zoledronic acid 0.05 mg/ml injection (1 source)BisphosphonateStart: 47-88-4934stur 5 mg intravenously onceReclast 5 mg/100 mL Soln-IV 5 mg = 100 mL, IV, Once, Refills(s) 0 Start Date: 01/08/25 Status: Ordered Repeat number: 1 Problems Active Problems Problem ClassificationProblemDateDocumented DateEpisodic/ChronicAbdominal hernia (9 sources)Complicated femoral hernia; Translations: [Unilateral femoral hernia, with obstruction, without gangrene, not specified as recurrent]Onset: 153348-03-1552BzogxjlmGpoxzbjg reactions (3 sources)Uqfgig52-97-6393OqrbeplbZikkoyd disorders (3 sources)Anxiety disorder, unspecified; Translations: [Anxiety]Onset: 441311-42-1621IjedypeTacqradwoc and other anemia (2 sources)Ylyxrw14-97-1007DgowmnhaLvxtnkdt mellitus without complication (1 source)Type 2 diabetes mellitus without complications; Translations: [TYPE 2 DM WITHOUT COMPLICATIONS]Onset: 66-30-8836LlxibgyEnzvgcvvy of lipid metabolism (18 sources)Hyperlipidemia; Translations: [Hyperlipidemia, unspecified]Onset: 328857-30-0756KgyrklaXugssymgpq disorders (2 sources)Atrophic vaginitis; Translations: [Postmenopausal atrophic vaginitis] 39-57-5457NghvomgPlap disorders (15 sources)Mood mjthtevn08-30-7712QmlnzxiXhywhyzljcqw breast conditions (1 source)Fibrocystic disease of -95-4543VnnigpwTkjotxhdwgv deficiencies (4 sources)Vitamin D deficiency, unspecified; Translations: [VITAMIN D DEFICIENCY UNSPECIFIED]Onset: 62-18-1441XojcqrmWkzucrgagatt (19 sources)Osteoporosis; Translations: [Age-related osteoporosis without current pathological fracture]Onset: 861232-84-7069OivljwjGquab aftercare (1 source)Other assistant terminal manager (current) drug therapy; Translations: [OTH DETENTION CURRENT DRUG THERAPY]Onset: 76-38-3792OehhxhfeVybny circulatory disease (2 sources)Vascular upzomnlvjjuwl02-90-5102DgtxhsylIkvlz connective tissue disease (1 source)Presence of left artificial knee joint; Translations: [PRESENCE LEFT ARTIFICIAL KNEE JOINT]Onset: 79-77-2152MurcijtBzsgv gastrointestinal disorders (1 source)Abnormal feces; Translations: [Other fecal abnormalities]Onset: 65-69-5827BhuhbqcrVoxnv gastrointestinal disorders (1 source)Occult blood in cuccrg80-12-2337FefrobtkFuivc inflammatory condition of skin (14 sources)Lblargyho15-35-3442PdlqsjuOptsg screening for suspected conditions (not mental disorders or infectious disease) (7 sources)Encounter for screening for malignant neoplasm of colon; Translations: [Cancer cervix screening status]Onset: 158683-51-5536 EpisodicOther skin disorders (4 sources)Lentiginosis; Translations: [Other melanin hyperpigmentation] 87-36-6526BqegvdyvCouhk skin disorders (2 sources)Actinic keratosis; Translations: [Actinic keratosis]02-08-2024 EpisodicResidual codes; unclassified (15 sources)Rltgfheb83-07-5947EwuxgqxdTiyptouc codes; unclassified (2 sources)Postmenopausal state; Translations: [Asymptomatic menopausal state] 63-43-4491PnpslnbaXqlllqpqaryr (14 sources)Body mass index 20-24 - ikmmkq25-75-6671Etjffucjppgd (13 sources)Right femoral kmebkg66-84-8561Yhyzbkwxypfa (2 sources)CONTACT W/AND (SUSP) EXPOS COVID-19; Translations: [CONTACT W/AND (SUSP) EXPOS COVID-19]Onset: 54-32-9181Tufdcmlyjzad (2 sources)History of small bowel fwnzybzpzga95-73-2632Bxulainjsrbs (2 sources)Patient encounter -09-1219Fmovc infection (5 sources)COVID-19; Translations: [COVID-19]Onset: 09-11-2021 Past or Other Problems Problem ClassificationProblemDateDocumented DateEpisodic/ChronicImmunizations and screening for infectious disease (1 source)Encounter for immunization; Translations: [ENCOUNTER FOR IMMUNIZATION] Onset: 25-49-2364KwlowztwVibvzuldj and history of mental health and substance abuse codes (1 source)Personal history of nicotine dependence; Translations: [PERSONAL HISTORY OF NICOTINE DEPEND]Onset: 08-75-4429EjtqwyghWlzapqhujtwg (1 source)CONTACT W/AND (SUSP) EXPOS COVID-19; Translations: [CONTACT W/AND (SUSP) EXPOS COVID-19]Onset: 09-11-2021 Results Test NameValueInterpretationReference RangeFacilityAmbulatory Visit Summaryon 72-28-3427Vljnbluiit Visit SummaryAmbulatory Visit Summary COLETTE VALENTE :1955 Visit Date:01/08/2025 Ambulatory Visit Instructions Your Diagnosis Screening for malignant neoplasm of colon Your Care Team Attending Physician - CUCO FRANKEL, Ranjan Seals Primary Care Physician - Abby FRANKEL, Marilee This Is Your Medications List zoledronic acid (Reclast 5 mg/100 mL Soln-IV) Contact prescribing physician if questions or concerns calcium carbonate (calcium (as carbonate) 600 mg oral tablet) citalopram (citalopram 10 mg Tab) meloxicam (meloxicam 7.5 mg Tab) multivitamin (Vitamin B Complex oral capsule) multivitamin with minerals (Celebrate Multivitamin oral capsule) raloxifene (raloxifene 60 mg Tab) simvastatin (simvastatin 20 mg Tab) Procedures Performed Arthroplasty of knee (06/15/2022), Repair of right femoral hernia (09/17/2021), Arthroplasty of thehip (01/05/2019), Colonoscopy (10/30/2014), Arthroplasty of knee, Breast augmentation, Colonoscopy,Tubal ligation. Discharge Vitals Heart Rate (Peripheral) 72 Respiratory Rate 16 Blood Pressure 122/76 Height 162.5 cm Height 64 in Weight 63.5 kg Weight 139.993 lb BMI 24.05 Medications What How Much When Instructions Unchanged zoledronic acid (Reclast 5 mg/ 100 mL Soln-IV) 100 Milliliter Intravenous Once Unchanged calcium carbonate (calcium (as carbonate) 600 mg oral tablet) 1 Tablets By Mouth Every day Contact prescribing physician if questions or concerns Unchanged citalopram (citalopram 10 mg Tab) 1 Tablets By Mouth Every day Contact prescribing physician if questions or concerns Unchanged meloxicam (meloxicam 7.5 mg Tab) 1 Tablets By Mouth Every day Contact prescribing physician if questions or concerns Unchanged multivitamin (Vitamin B Complex oral capsule) 1 Capsules By Mouth Every day Contact prescribing physician if questions or concerns Unchanged multivitamin with minerals (Celebrate Multivitamin oral capsule) 1 tab By Mouth Every dayContact prescribing physician if questions or concerns Unchanged raloxifene (raloxifene 60 mg Tab) 1 Tablets By Mouth Every day Contact prescribing physician if questions or concerns Unchanged simvastatin (simvastatin 20 mg Tab) 1 Tablets By Mouth Once a day (at bedtime) Contact prescribing physician if questions or concerns Allergies No Known Allergies No Known Medication Allergies Problems Ongoing - Any problem that you are currently receiving treatment for. Anemia Anxiety Eczema History of small bowel obstruction Insomnia Osteoporosis Pure hypercholesterolemia Screening for malignant neoplasm of colon Venous insufficiency Historical - Any problem that you are no longer receiving treatment for. Hyperlipidemia Mood disorder Patient Survey You may receive a survey via text or e-mail asking about your office visit. Please share your experience with us by completing your survey. We appreciate your feedback and thank you for choosing us for your care. Patient Portal You may access all of your results and other medical record information on our secure patient portal. If you are not signed up for this yet, please contact [employer] at [phone] to get signed up today. Language Information Language assistance services are available as needed. NormalKettering Health SpringfieldCalcium [Mass/volume] in Serum or PlasmaOrdered By: Mala Dukes on 78-50-5180Sqnokki [Mass/Vol]9.5 mg/dL Normal8.6-10.3FCleveland Clinic Fairview HospitalComment on above:Performed By: #### MG, [id number], CREAT, PTH, CA, BUN, PHOS #### [facility] [address] [place], [place] [id number] USACreatinineon 61-66-2352HRP/1.73 sq M.predicted MDRD (S/P/Bld) [Vol rate/Area]mL/min/{1.73_m2}NormalThe [facility] Comment on above:Performed By: #### MG, [id number], CREAT, PTH, CA, BUN, PHOS #### [facility] [address] [place], [place] [id number] USACreatinine [Mass/volume] in Serum or PlasmaOrdered By: Mala Dukes on 63-71-7903Dsvqeszwor [Mass/Vol]0.80 mg/dLNormal0.60-1.20 [facility] HospitalComment on above:Performed By: #### MG, [id number], CREAT, PTH, CA, BUN, PHOS #### [facility] [address] [place] [address] USAGlomerular filtration rate [Volume Rate/Area] in Serum, Plasma or Blood by CreatinineOrdered By: Mala Dukes on 85-18-5375Btepxwanhw filtration rate [Volume Rate/Area] in Serum, Plasma or Blood by Creatinine> 60.0 mL/MinCleveland Clinic Union HospitalMagnesium [Mass/volume] in Serum or PlasmaOrdered By: Mala Dukes on 17-20-9825Ftrglqjep [Mass/Vol]2.0 mg/dLNormal 1.9-2.7FCleveland Clinic Fairview HospitalComment on above:Performed By: #### MG, [id number], CREAT, PTH, CA, BUN, PHOS #### [facility] [address] [place] [address] [place]ANo Panel InformationOrdered By: Mala Dukes on 88-82-3562Icnallsg Creatinine Clearance (ChemN/AFCleveland Clinic Fairview HospitalParathyrin.intact [Mass/volume] in Serum or PlasmaOrdered By: Mala Dukes on 03-79-2662Hejlfgjnvf.intact [Mass/Vol]36.5 pg/bE65-29JguvguclrCleveland Clinic Union HospitalParathyroid Hormone Intacton 77-28-2055Hxadeaectqa Hormone Gbvzmz59.5 pg/yJPpnfqf48-85Aeg [facility] Physician GroupComment on above:Result Comment: PERFORMED BY: [place] [address] PATHOLOGIST YARD DRIVER RAKESH OCONNOR M.D.Performed By: #### MG, [id number], CREAT, PTH, CA, BUN, PHOS #### [place] [address] USAPhosphate [Mass/volume] in Serum or PlasmaOrdered By: Mala Dukes on 03-30-6272Ppomrcwln [Mass/Vol]4.3 mg/dLNormal2.5-4.5FCleveland Clinic Fairview HospitalComment on above:Performed By: #### MG, [id number], CREAT, PTH, CA, BUN, PHOS #### [facility] [address] [place] [address] USAUrea nitrogen [Mass/volume] in Serum or PlasmaOrdered By: Mala Dukes on 52-21-9307Sbiu nitrogen [Mass/Vol]20 mg/dLNormal7-25[facility] HospitalComment on above:Performed By: #### MG, [id number], CREAT, PTH, CA, BUN, PHOS #### [facility] [address] [place] [address] USAVitamin D 25 Hydroxy Totalon 46-19-9390Jroiadf D 25 Hydroxy Total53.3 ng/zHLknzhg59-182Imt [facility] Physician GroupComment on above:Result Comment: VITAMIN D STATUS 25(OH)VITAMIN D RANGE (ng/mL) Deficient <20 Insufficient 20 to <30 Sufficient 30 to 100 Reference: Jose Tolentino, Marielle JESUS, et al. Evaluation,treatment, and prevention of vitamin D deficiency; an Endocrine Society clinical practice guideline. JCEM. 2010; 96(7):1911-. PERFORMED BY: [facility] [address] [place] [address] PATHOLOGIST YARD DRIVER RAKESH OCONNOR M.D.Performed By: #### MG, [id number], CREAT, PTH, CA, BUN, PHOS #### [facility] [address] [place] [address] USAVitamin D+Metabolites [Mass/volume] in Serum or Plasma Ordered By: Mala Dukes on 30-49-4751Lnwpmpm D+Metabolites [Mass/Vol]53.3 ng/fB57-565IwjfyqvewCleveland Clinic Union HospitalComment on above:VITAMIN D STATUS 25(OH)VITAMIN D RANGE (ng/mL) Deficient <20 Insufficient 20 to <39Fbuoeoqvpm51 to 100Reference: Jose Tolentino, Marielle JESUS, et al. Evaluation,treatment, and prevention of vitamin D deficiency; an Endocrine Society clinical practice guideline. JCEM. 2010; 96(7):1911-.BI MAMMOGRAM SCREENING TOMOSYNTHESIS BILATERALon 45-12-8053IP MAMMOGRAM SCREENING TOMOSYNTHESIS BILATERALThis is a summary report. The complete report [...] left. Breast implants appear grossly unremarkable and similarto the prior study, no obvious interval contour abnormality or leak. IMPRESSION: Impression: No specific evidence of malignancy seen in either breast. BIRADS 2 - Benign Findings DENSITY: There are scattered areas of fibroglandular density. FOLLOW-UP: Routine Screening Mammogram ELECTRONICALLY SIGNED BY: Seamus Baker M.D.NormalNot AvailableComment on above: Order Comment: Spot compression and us prnDEXA BONE DENSITYon 12-13-7753RARG BONE DENSITYExamination: DEXA BONE DENSITY Clinical History: screening Technique: Bone density study was performed. T score values for the lumbar spine, left femoral neckand left forearm are obtained. Comparison: 02/24/2021. Findings: [...] prior exam. ELECTRONICALLY SIGNED BY: Seamus Baker M.D.NormalNot AvailableNo Panel Informationon 86-37-2728JJXB HealthcareOCC BLD IMMUNO SCREENon 49-92-4903ZAPYTH BLOODPositiveAbnormalNEGATIVEThe [facility] HospitalComment on above:Performed By: #### CBC #### [facility] [address] [place] [address] Dr. Nehemiah LordFREE T3on 05-20-9514PLUP T32.75 pg/mlLNormal2.18-3.98The [facility] HospitalComment on above:Performed By: #### CBC #### [facility] [address] [address] [address] Nehemiah LordGLYCOHEMOGLOBIN A1Con 82-87-9441GRR RECOMMENDATIONSEE BELOWNormal The [facility] HospitalComment on above:Result Comment: ADA RECOMMENDED LIMIT 4.0 - 6.0 ADA THERAPEUTIC TARGET < 7.0 ACTION SUGGESTED > 7.0Performed By: #### A1C #### [facility] [address] [place] [address] Dr. Nehemiah LordGlucose [Mass/Vol]114 mg/dLProtestant HospitalComment on above:Performed By: #### A1C #### [facility] [address] [address] [address] Nehemiah LordHbA1c (Bld) [Mass fraction]5.6 %Normal4.5-6.2The [facility] HospitalComment on above:Performed By: #### A1C #### [facility] [address] [place] [address] Dr. Nehemiah LordLIPID PROFILEon 77-42-2653VISO-HDL RATIO NORMSEE [facility] HospitalComment on above:Result Comment: 3.3 - 4.4 LOW RISK 4.4 - 7.1 AVERAGE RISK 7.1 - 11.0 MODERATE RISK >11.0 HIGH RISKPerformed By: #### CBC #### [facility] [address] [place] [address] Dr. Nehemiah LordCholesterol [Mass/Vol]195 mg/dLNormal<=200The [facility] Comment on above:Performed By: #### CBC #### [facility] [address] [address] [address] Nehemiah LordCholesterol in HDL [Mass/Vol]91 mg/dLCritically pees91-42Uut [facility] HospitalComment on above:Performed By: #### CBC #### [facility] [address] [place] [address] Dr. Nehemiah Veraesterol in LDL [Mass/Vol]92.0 mg/dLProtestant HospitalComment on above:Performed By: #### CBC #### [facility] [address] [place] [address] Dr. Nehemiah Veraesterol.total/Cholesterol in HDL [Mass ratio]2.1 {ratio} NormalThe [facility] HospitalComment on above:Performed By: #### CBC #### [facility] [address] [place] [address] Dr. Nehemiah LordHDL NORMAL> or = 60 mg/dl - LOW CARDIOVASCULAR RISK <40 mg/dl - HIGH CARDIOVASCULAR RISKNormalThe [facility] HospitalComment on above:Performed By: #### CBC #### [facility] [address] [address] [address] Nehemiah Olson CALC NORMALSEE BELOWNormCleveland Clinic [facility]ron General Lodi HospitalComment on above:Result Comment: <100 mg/dl OPTIMAL 100 - 129 mg/dl NEAR OR ABOVE OPTIMAL 130 - 159 mg/dl BORDERLINE HIGH 160 - 189 mg/dl HIGH >190 mg/dl VERY HIGH Performed By: #### CBC #### [facility] [address] [place] [address] Dr. Nehemiah LordTriglyceride [Mass/Vol]60 mg/dLNormal<=150The [facility] Comment on above:Performed By: #### CBC #### [facility] [address] [place] [address] Dr. Nehemiah LordVLDL CALC12.0 mg/dLNoMercy HealthComment on above: Performed By: #### CBC #### [facility] [address] [place] [address] Dr. Nehemiah Andujar PROFILEon 67-64-3972Fkyvuqc [Mass/Vol]3.5 g/dLNormal3.4-5.0 The [facility] HospitalComment on above:Performed By: #### CBC #### [facility] [address] [place] [address] Dr. Nehemiah LordAlbumin/Globulin [Mass ratio]0.8 {ratio}NormalThe [facility] HospitalComment on above:Performed By: #### CBC #### [facility] [address] [place] [address] Dr. Nehemiah Sunshine [Catalytic activity/Vol]97 U/DTgwxxa65-898Izb [facility] HospitalComment on above:Performed By: #### CBC #### [facility] [address] [place] [address] Dr. Nehemiah Prabhakar [Catalytic activity/Vol]26 U/GDappgz92-95Oaq [facility] HospitalComment on above:Performed By: #### CBC #### [facility] [address] [place] [address] Dr. Nehemiah Michelle [Catalytic activity/Vol]36 U/DTeufts97-64Nin [facility] HospitalComment on above:Performed By: #### CBC #### [facility] [address] [place] [address] Dr. Nehemiah LedezmaI, CONJUGATED0.1 mg/dLNormal0.0-0.2[facility] Comment on above:Performed By: #### CBC #### [facility] [address] [place] [address] Dr. Nehemiah Ledezmairubin [Mass/Vol]0.3 mg/dLNormal0.2-1.0The [facility] Comment on above:Performed By: #### CBC #### [facility] [address] [place] [address] Dr. Nehemiah LordGlobulin (S) [Mass/Vol]4.4 g/dLNormalThe [facility] HospitalComment on above:Performed By: #### CBC #### [facility] [address] [place] [address] Dr. Nehemiah LordProtein [Mass/Vol]7.9 g/dLNormal6.4-8.2[facility] Comment on above:Performed By: #### CBC #### [facility] [address] [place] [address] Dr. Nehemiah LordT4on [id number] [Mass/Vol]9.00 ug/dLNormal4.80-13.90The [facility] County HospitalComment on above:Performed By: #### CBC #### [facility] [address] [place] [address] Dr. Nehemiah LordTSHomarcell 99-84-8640YKX2.758 uIU/mLNormal0.358-3.740The [facility] HospitalComment on above:Performed By: #### CBC #### [facility] [address] [place] [address] Dr. Nehemiah LordVITAMIN D 25 OHon 39-66-2524YDK D 25-OH38.4 ng/mLNormalTrihealth Bethesda North HospitalComment on above:Performed By: #### ANA CHUN #### [facility] [address] [address] [address] Nehemiah Ruvalcaba [facility]ma Medical CenterComment on above: Result Comment: <20 ng/mL Vit D deficient 20 - <30 ng/mL Vit D insufficient 30 - 100 ng/mL Vit D sufficient >100 ng/mL Potential ToxicityPerformed By: #### ERUR, UMICRO #### [facility] [address] [address] [address] Nehemiah Gunter BANKOrdered By: Kendy Aparicio on 21-17-4404BOF/Rh Interp PositiveInvalid Interpretation CodeMER[facility] BB SubsectionABSC Gel InterpNegative (06/15/22 6:18 AM)NormalMERCY HEALTH [facility] BB SubsectionBLOOD BANKOrdered By: Vicki Bianchi on 28-70-9361WOG/Rh Retype InterpPositiveInvalid Interpretation CodeMERCY [facility]ALTH [facility] BB SubsectionCHEMISTRYOrdered By: SYSTEM SYSTEM on 54-43-7858Yyoqz gap [Moles/Vol] 12 mmol/LNormal6 - 16 mEq/LFTMC RemisolChloride [Moles/Vol]101 mmol/MRmhhgw560 - 111 mmol/LFTMC RemisolCO2 [Moles/Vol]29 mmol/QUcprpp43 - 31 mmol/LFTMC Remisol Creatinine [Mass/Vol]0.8 mg/dLNormal0.5 - 1.3 mg/dLMERCY HEALTH [facility] RemisolGFR/1.73 sq M.predicted among blacks MDRD (S/P/Bld) [Vol rate/Area]mL/min/1.73 i7Npywyx >=59mL/min/1.73 m2[facility] Chem SGFR/1.73 sq M.predicted among non-blacks MDRD (S/P/Bld) [Vol rate/Area]mL/min/1.73 y2Jzumas>=59mL/min/1.73 m2[facility] Chem S Glucose [Mass/Vol]91 mg/uAYuwnzz84 - 199 mg/dLMERCY HEALTH [facility] RemisolPotassium [Moles/Vol] 3.8 mmol/LNormal3.5 - 5.3 mmol/LFTMC RemisolSodium [Moles/Vol]138 mmol/LNormal 135 - 145 mmol/LFTMC RemisolUrea nitrogen [Mass/Vol]22 mg/dLHigh5 - 21 mg/dLFTMC RemisolHEMATOLOGYOrdered By: Vicki Biancih on 04-27-0591Xqnifqxgxur distribution width (RBC) [Ratio]13.9 %Uataan19.9 - 14.2 %[facility] HemeAutoSSHematocrit (Bld) [Volume fraction]38.4 %Qrqsap27.0 - 46.0 %[facility] HemeAutoSSHemoglobin (Bld) [Mass/Vol]12.5 g/vVZlyxgb80.0 - 16.0 gm/dLFTMC HemeAutoSSMCH (RBC) [Entitic mass]29.6 jaNeagbg70.0 - 34.0 pgFTMC HemeAutoSSMCHC (RBC) [Mass/Vol]32.6 g/dL Nrhdxq95.4 - 36.0 gm/dLFTMC HemeAutoSSMCV (RBC) [Entitic vol]90.9 nKMpwavo24.0 - 100.0 fLFTMC HemeAutoSSPlatelet mean volume (Bld) [Entitic vol]8.2 fLNormal6.4 - 10.8 fLFTMC HemeAutoSSPlatelets (Bld) [#/Vol]238.0 E9/QNtkiab584.0 - 500.0 E9/L [facility] HemeAutoSSRBC (Bld) [#/Vol]4.2 E12/LLow4.3 - 5.9 E12/LFTMC HemeAutoSSWBC corrected for nucl RBC Auto (Bld) [#/Vol]3.4 E9/LLow4.0 - 11.0 E9/LFTMC HemeAutoSSURINALYSISOrdered By: Opal Lagos on 56-44-2989Yzxjsymqm Ql (U) Negative (05/28/22 8:07 AM)NormalNegativeFTMC UA Auto SSClarity (U)Clear (05/28/22 8:07 AM)NormalClearFTMC UA Auto SSColor (U)Yellow (05/28/22 8:07 AM)NormalYellowFTMC UA Auto SSEpithelial cells.squamous LM.HPF (Urine sed) [#/Area]0-2 /HPFNormal0-2/HPFMERCY HEALTH [facility] UA Auto SSGlucose Test strip (U) [Mass/Vol]Negative (05/28/22 8:07 AM)NormalNegativeMERCY HEALTH [facility] UA Auto SSHemoglobin Ql (U)Trace *ABN* (05/28/22 8:07 AM)Invalid Interpretation CodeNegativeMERCY HEALTH [facility] UA Auto SSKetones (U) [Mass/Vol]Negative (05/28/22 8:07 AM)NormalNegativeMERCY [facility]ALTH [facility] UA Auto SSLithium.plasma/[place].RBC (Bld) [Mass ratio]0-3 /HPFNormal0-3/HPFMERCY HEALTH [facility] UA Auto SSNitrite Ql (U)Negative (05/28/22 8:07 AM)NormalNegativeMERCY [facility]ALTH [facility] UA Auto SSpH (U)7.0 *NA* (05/28/22 8:07 AM)Invalid Interpretation Code5.0 - 9.0[facility] UA Auto SSProtein (U) [Mass/Vol]Negative (05/28/22 8:07 AM)NormalNegativeMERCY [facility]ALTH [facility] UA Auto SSSpecific gravity (U) [Rel density] 1.015 *NA* (05/28/22 8:07 AM)Invalid Interpretation Code1.005 - 1.030[facility] UA Auto SSUA Spec DescClean Catch (05/28/22 8:07 AM)NormalMERCY HEALTH [facility] UA Auto SSUrobilinogen Qn (U)0.1831018 {Sosa'U}/dL Normal0.0 - 1.0 EU/dLMERCY HEALTH [facility] UA Auto SSWBC Auto Ql (U)Negative (05/28/22 8:07 AM)NormalNegativeMERCY [facility]ALTH [facility] UA Auto SSWBC LM.HPF (Urine sed) [#/Area]0-5 /HPFNormal0-5/HPFMERCY HEALTH [facility] UA Auto SSSCREENING MAMMOGRAM W/STEFFI, BILATERAL*on 66-29-8115VXDXIYODG MAMMOGRAM W/STEFFI, BILATERAL*CLINICAL HISTORY: Screening Mammogram COMPARISON: Priors dating back [...] VERY IMPORTANT TO YOUR HEALTH. THE CURRENT [place] [employer] GUIDELINES RECOMMENDS ANNUAL MAMMOGRAPHY BEGINNING AT AGE 41 THIS FACILITY USES A REMINDER SYSTEM TO ENSURE ALL PATIENTS RECEIVE REMINDER NOTIFICATIONS AT THE APPROPRIATE TIME BASED ON THE RECOMMENDATIONS OF THIS EXAM. Board Certified Radiologist. Accredited by the ACR and FDA. Report reported and signed by Florentino Mcgill on 03/17/2022 1412NormalNoerlanger western car[facility] hospitaln [facility], [place], [facility] By [facility] SpecialistCHEMISTRYOrdered By: SYSTEM SYSTEM on 11-04-2021 Creatinine [Mass/Vol]0.9 mg/dLNormal0.5 - 1.3 mg/dLMERCY HEALTH [facility] RemisolGFR/1.73 sq M.predicted among blacks MDRD (S/P/Bld) [Vol rate/Area]mL/min/1.73 l0Nwbqfk >=59mL/min/1.73 m2[facility] Chem SGFR/1.73 sq M.predicted among non-blacks MDRD (S/P/Bld) [Vol rate/Area]mL/min/1.73 e9Szsvse>=59mL/min/1.73 m2[facility] Chem S AMYLASEon 37-98-3018Pkvwqgc [Catalytic activity/Vol]81 U/RSplscu57-183Axc [facility] HospitalComment on above:Performed By: #### LIPA, CMP, LEELA #### [facility] [address] [place] [address] Dr. Nehemiah Michael AUTO DIFFon 41-97-3991MVNQ #0.0 103/ulNormal0.0-0.1The [facility] HospitalComment on above:Performed By: #### CBC #### [facility] [address] [address] [address] Nehemiah Friassophils/100 WBC (Bld)0.1 %Critically low0.2-2.0The [facility] HospitalComment on above:Performed By: #### CBC #### [facility] [address] [place] [address] Dr. Nehemiah Matt #0.0 103/ulNormal0.0-0.7The Jorge HospitalComment on above: Performed By: #### CBC #### [facility] [address] [place] [address] Dr. Nehemiah De La Oosinophils/100 WBC (Bld)0.0 %Critically low0.9-7.0The [facility] HospitalComment on above:Performed By: #### CBC #### [facility] [address] [place] [address] Dr. Nehemiah De La Orythrocyte distribution width (RBC) [Ratio]12.6 %Kqcqzp94.0-15.0 The [facility] HospitalComment on above:Performed By: #### CBC #### [facility] [address] [place] [address] Dr. Nehemiah LordHematocrit (Bld) [Volume fraction]37.2 %Nmilbh46.0-48.0The [facility] HospitalComment on above:Performed By: #### CBC #### [facility] [address] [place] [address] Dr. Nehemiah LordHemoglobin (Bld) [Mass/Vol]12.1 g/oMZjsvmx85.0-16.0The [facility] HospitalComment on above:Performed By: #### CBC #### [facility] [address] [place] [address] Dr. Nehemiah Bermudez #0.04 10e3/ulCritically high0.00-0.03[facility] Comment on above:Performed By: #### CBC #### [facility] [address] [place] [address] Dr. Nehemiah Bermudez %0.4 %Normal0.0-0.5The Berger Hospitalment on above: Performed By: #### CBC #### [facility] [address] [place] [address] Dr. Nehemiah TavaresH #1.0 103/ulCritically low1.2-3.8The [facility] Comment on above:Performed By: #### CBC #### [facility] [address] [place] [address] Dr. Nehemiah Donovanmphocytes/100 WBC (Bld)10.7 %Critically low20.5-60.0The [facility] HospitalComment on above:Performed By: #### CBC #### [facility] [address] [place] [address] Dr. Nehemiah Moe DIFF REQNONormalThe [facility] HospitalComment on above: Performed By: #### CBC #### [facility] [address] [place] [address] Dr. Nehemiah Francisco (RBC) [Entitic mass]29.5 qdKtbxmf57.7-34.0The [facility] HospitalComment on above:Performed By: #### CBC #### [facility] [address] [place] [address] Dr. Nehemiah Francisco (RBC) [Mass/Vol]32.5 g/tZTbuvxd35.9-35.2The [facility] HospitalComment on above:Performed By: #### CBC #### [facility] [address] [place] [address] Dr. Nehemiah Francisco (RBC) [Entitic vol]90.7 dLTgppbw50.0-99.0The [facility] HospitalComment on above:Performed By: #### CBC #### [facility] [address] [place] [address] Dr. Nehemiah iNeto #0.6 103/ulNormal0.3-0.8The [facility] HospitalComment on above:Performed By: #### CBC #### [facility] [address] [place] [address] Dr. Nehemiah Lunaocytes/100 WBC (Bld)6.2 %Normal1.7-12.0[facility] Comment on above:Performed By: #### CBC #### [facility] [address] [place] [address] Dr. Nehemiah Barroso #7.9 103/ulCritically high1.4-6.5The [facility] Comment on above:Performed By: #### CBC #### [facility] [address] [place] [address] Dr. Nehemiah Cejautrophils/100 WBC (Bld)82.6 %Critically high43.0-75.0The [facility] HospitalComment on above:Performed By: #### CBC #### [facility] [address] [place] [address] Dr. Nehemiah Jimenezlet mean volume (Bld) [Entitic vol]9.7 fLNormal9.5-13.5The [facility] HospitalComment on above:Performed By: #### CBC #### [facility] [address] [place] [address] Dr. Nehemiah LordPLT248 103/bnOjdgdi552-272Nvx [facility] HospitalComment on above: Performed By: #### CBC #### [facility] [address] [place] [address] Dr. Nehemiah LordRBC4.10 106/ulCritically low4.20-5.40The [facility] HospitalComment on above:Performed By: #### CBC #### [facility] [address] [place] [address] Dr. Nehemiah LordWBC9.6 103/ulNormal4.0-11.0The [facility] HospitalComment on above: Performed By: #### CBC #### [facility] [address] [place] [address] Dr. Nehemiah LordCT ABD/PELV W CONon 49-50-1157BI ABD/PELV W CONEXAMINATION: CT ABD/PELV W CON HISTORY: NAUSEA WITH [...] Electronically authenticated by: BRANDON GARCIA Date: 2021-09-17 01:31NormCleveland Clinic Akron [facility] Lodi HospitalCovid-19 PCR (CVDTBH)on 11-43-5857IDPA-CoV-2 (COVID-19) RNA ZACK+probe Ql (Unsp spec)DetectedCritically abnormalNOT DETECTEDThe [facility] HospitalComment on above:Result Comment: This test is not yet approved or cleared by the [place] FDA. When there are no FDA-approved or cleared tests available, and other criteria are met, FDA can make tests available under an emergency access mechanism called an Emergency Use Authorization (EUA). The EUA for this test is supported by the [employer] of Health and Human Service's declaration that circumstances exist to justify the emergency use of in vitro diagnostics for the detection and/or diagnosis of the virusthat causes COVID-19. This EUA will remain in effect for the duration of the COVID-19 declaration ju stifying emergency of IVDs, unless it is terminated or revoked by the FDA (after which the test mayno longer be used).Performed By: #### CVDTBH #### [facility] [address] [place] [address] Dr. Nehemiah Ferrell URINE PROFILEon 75-57-9966Lgwlpruze Ql (U)NegativeNormal NEGATIVEThe [facility] HospitalComment on above:Performed By: #### ERUR, UMICRO #### [facility] [address] [address] [address] Nehemiah LordClarity (U)CLEARNormalCLEARTrihealth Bethesda North HospitalComment on above: Performed By: #### ADIEL UMICRO #### [facility] [address] [address] [address] Nehemiah Adenlor (U)YELLOWNormalYELLOWTrihealth Bethesda North HospitalComment on above: Performed By: #### ADIEL UMICRO #### [facility] [address] [address] [address] Nehemiah Hernadez micrscopic examination will be performed if indicated. NormalTrihealth Bethesda North HospitalComment on above:Performed By: #### ADIEL UMICRO #### [facility] [address] [place] [address] Dr. Nehemiah LordGlucose Ql (U)NegativeNormalNEGATIVETrihealth Bethesda North HospitalComment on above:Performed By: #### ADIEL UMICRO #### [facility] [address] [place] [address] Dr. Nehemiah LordHemoglobin Ql (U)SMALLAbnormalNEGAshtabula County Medical Center Comment on above:Performed By: #### ADIEL UMICRO #### [facility] [address] [place] [address] Dr. Nehemiah LordKetones Ql (U)15 mg/dlAbnormalNEGAshtabula County Medical Center Comment on above:Performed By: #### ADIEL UMICRO #### [facility] [address] [place] [address] Dr. Nehemiah LordLEUKOCYTESNegativeNormalNEGAshtabula County Medical CenterComselect [facility] on above:Performed By: #### ADIEL UMICRO #### [facility] [address] [place] [address] Dr. Nehemiah LordNitrite Ql (U)NegativeNormalNEGATIVETrihealth Bethesda North HospitalComment on above:Performed By: #### ADIEL UMICRO #### [facility] [address] [place] [address] Dr. Nehemiah Mario (U)6.0 [pH]Normal5-9The [facility] HospitalComment on above: Performed By: #### ANA CHUN #### [facility] [address] [place] [address] Dr. Nehemiah LordSPEC GRAVITY1.943Sznmqe0.005-<=1.025The [facility] HospitalComment on above:Performed By: #### NETTIE CHUNRO #### [facility] [address] [place] [address] Dr. Nehemiah Ashby PROTEINNegativeNormalNEGATIVE/ TRACEThe [facility] Comment on above:Performed By: #### NETTIE CHUNRO #### [facility] [address] [place] [address] Dr. Nehemiah Ken MICRO INDINDICATEDNormalThe [facility] HospitalComment on above: Performed By: #### ANA CHUN #### [facility] [address] [place] [address] Dr. Nehemiah LordUrobilinogen Qn (U)0.2 {Sosa'U}/dLNormal0.2 - 1.0The [facility] HospitalComment on above:Performed By: #### NETTIE CHUNRO #### [facility] [address] [place] [address] Dr. Nehemiah LordLACTATE/LACTIC ACIDon 07-56-2243Slnwzfu [Moles/Vol]1.0 mmol/L Normal0.4-1.9The [facility] HospitalComment on above:Performed By: #### CBC #### [facility] [address] [place] [address] Dr. Nehemiah LordLIPASEon 96-77-1704Dfzgur [Catalytic activity/Vol]114.0 U/LNormal 73.0-393.0The [facility] HospitalComment on above:Performed By: #### LIPA, CMP, LEELA #### [facility] [address] [place] [address] Dr. Nehemiah LordPROF 14(COMP METB)on 65-97-9452Jjaelss [Mass/Vol]3.9 g/dLNormal 3.4-5.0The [facility] HospitalComment on above:Performed By: #### LIPA, CMP, LEELA #### [facility] [address] [place] [address] Dr. Nehemiah LordAlbumin/Globulin [Mass ratio]1.0 {ratio}NormalThe [facility] HospitalComment on above:Performed By: #### LIPA, CMP, LEELA #### [facility] [address] [place] [address] Dr. Nehemiah Sunshine [Catalytic activity/Vol]81 U/OJpvvlf44-294Qgp [facility] HospitalComment on above:Performed By: #### LIPA, CMP, LEELA #### [facility] [address] [place] [address] Dr. Nehemiah CarmonaT [Catalytic activity/Vol]26 U/ZQdefox15-87Fxi [facility] HospitalComment on above:Performed By: #### LIPA, CMP, LEELA #### [facility] [address] [place] [address] Dr. Nehemiah Gale gap [Moles/Vol]12.3 mmol/LNormalThe [facility] Comment on above:Performed By: #### LIPA, CMP, LEELA #### [facility] [address] [place] [address] Dr. Nehemiah LordAST [Catalytic activity/Vol]32 U/UGafwnm68-14Sci [facility] HospitalComment on above:Performed By: #### LIPA, CMP, LEELA #### [facility] [address] [place] [address] Dr. Nehemiah LordBilirubin [Mass/Vol]0.4 mg/dLNormal0.2-1.0The [facility] Comment on above:Performed By: #### LIPA, CMP, LEELA #### [facility] [address] [place] [address] Dr. Nehemiah LordCalcium [Mass/Vol]9.2 mg/dLNormal8.5-10.1[facility] Comment on above:Performed By: #### LIPA, CMP, LEELA #### [facility] [address] [address] [address] Nehemiah LordChloride [Moles/Vol]101 mmol/PIgghdk44-268Akt [facility] Comment on above:Performed By: #### LIPA, CMP, LEELA #### [facility] [address] [address] [address] Nehemiah LordCO2 [Moles/Vol]27.5 mmol/IQpnkap23.0-32.0The [facility] Comment on above:Performed By: #### LIPA, CMP, LEELA #### [facility] [address] [address] [address] Nehemiah LordCreatinine [Mass/Vol]0.88 mg/dLNormal0.55-1.02[facility] HospitalComment on above:Performed By: #### LIPA, CMP, LEELA #### [facility] [address] [place] [address] Dr. Nehemiah De La OGFR-AF [place]>60Normal>=60The [facility] HospitalComment on above:Performed By: #### LIPA, CMP, LEELA #### [facility] [address] [address] [address] Nehemiah De La OGFR-NON AF [place]>60Normal>=60The [facility] HospitalComment on above:Performed By: #### LIPA, CMP, LEELA #### [facility] [address] [address] [address] Nehemiah LordGlobulin (S) [Mass/Vol]4.0 g/dLNormalThe [facility] HospitalComment on above:Performed By: #### LIPA, CMP, LEELA #### [facility] [address] [address] [address] Nehemiah LordGlucose [Mass/Vol]162 mg/dLCritically ltum14-223Rcc [facility] HospitalComment on above:Performed By: #### LIPA, CMP, LEELA #### [facility] [address] [address] [address] Nehemiah LordPotassium [Moles/Vol]3.8 mmol/LNormal3.5-5.1The [facility] Comment on above:Performed By: #### VANNA CMP, LEELA #### [facility] [address] [place] [address] Dr. Nehemiah LordProtein [Mass/Vol]7.9 g/dLNormal6.4-8.2The [facility] Comment on above:Performed By: #### VANNA CMP, LEELA #### [facility] [address] [place] [address] Dr. Nehemiah Alfaroum [Moles/Vol]137 mmol/BXitksj916-244Ouo [facility] Comment on above:Performed By: #### VANNA CMP, LEELA #### [facility] [address] [place] [address] Dr. Nehemiah March nitrogen [Mass/Vol]22.0 mg/dLCritically high7.0-18.0The [facility] HospitalComment on above:Performed By: #### VANNA CMP, LEELA #### [facility] [address] [place] [address] Dr. Nehemiah March nitrogen/Creatinine [Mass ratio]25.0 mg/mgNoMercy HealthComment on above:Performed By: #### VANNA CMP, LEELA #### [facility] [address] [place] [address] Dr. Nehemiah Moreno MICROSCOPIC ONLYon 28-64-1268QTFMDTMHMNGL SEENrmalNONE SEENTrihealth Bethesda North HospitalComment on above:Performed By: #### NETTIE CHUNRO #### [facility] [address] [place] [address] Dr. Nehemiah Darling identified Cx Nom (U)NOT INDICATEDNoMercy HealthComment on above:Performed By: #### NETTIE CHUNRO #### [facility] [address] [place] [address] Dr. Nehemiah Fisher SEENHeartland Behavioral Health ServicesalNONE SEENTrihealth Bethesda North HospitalComment on above:Performed By: #### NETTIE CHUNRO #### [facility] [address] [address] [address] Nehemiah LordCrystals LM Nom (Urine sed)NONE SEENNormalNONE SEENTrihealth Bethesda North HospitalComment on above:Performed By: #### ERUR, UMICRO #### [facility] [address] [place] [address] Dr. Cerna ChangEpithelial cells LM Ql (Urine sed)RARENormalNONE SEEN /RAREThe [facility] HospitalComment on above:Performed By: #### ERUR, UMICRO #### [facility] [address] [place] [address] Dr. Nehemiah LordMUCOUSNONE SEENNormalNONE SEENThe [facility] HospitalComment on above:Performed By: #### ERUR, UMICRO #### [facility] [address] [place] [address] Dr. Nehemiah LordRlqkuUJX6-5Xezrjndq3-2Lic [facility] HospitalComment on above:Performed By: #### ERUR, UMICRO #### [facility] [address] [place] [address] Dr. Nehemiah LordWBC0-2AbnormalNONE SEENThe [facility] HospitalComment on above: Performed By: #### ERUR, UMICRO #### [facility] [address] [place] [address] Dr. Nehemiah Adenvid-19 PCR ([facility])on 44-75-7741LWCS-CoV-2 (COVID-19) RNA ZACK+probe Ql (Unsp spec)DetectedCritically abnormalNOT DETECTEDThe [facility] HospitalComment on above:Result Comment: This test is not yet approved or cleared by the [place] FDA. When there are no FDA-approved or cleared tests available, and other criteria are met, FDA can make tests available under an emergency access mechanism called an Emergency Use Authorization (EUA). The EUA for this test is supported by the [employer] of Health and Human Service's (HHS's) declaration [...] no longer be used). Performed By: #### CVDTBH #### [facility] [address] [place] [address] Dr. Nehemiah PlattMPTOMATIC COVID-19 ANTIGENon [id number] StatementSEE BELOW NormalThe [facility] HospitalComment on above:Result Comment: This test has not been FDA [...] declaration is terminated or authorization is revoked sooner.Performed By: #### CBC #### [facility] [address] [place] [address] Dr. Nehemiah Bro-CoV-2 (COVID-19) RNA ZACK+probe Ql (Unsp spec)NegativeNormal NEGATIVEThe [facility] HospitalComment on above:Performed By: #### CBC #### [facility] [address] [place] [address] Dr. Nehemiah LordCHEMISTRYOrdered By: SYSTEM SYSTEM on 40-38-6445Vzhum gap [Moles/Vol]13 mmol/LNormal6 - 16 mEq/LFTMC RemisolChloride [Moles/Vol]102 mmol/L Htnmdd327 - 111 mmol/LFTMC RemisolCO2 [Moles/Vol]25 mmol/YOjbunq22 - 31 mmol/L [facility] RemisolCreatinine [Mass/Vol]0.9 mg/dLNormal0.5 - 1.3 mg/dLFTMC Remisol GFR/1.73 sq M.predicted among blacks MDRD (S/P/Bld) [Vol rate/Area]mL/min/1.73 g4Hjzffj>=59mL/min/1.73 m2FT Chem SGFR/1.73 sq M.predicted among non-blacks MDRD (S/P/Bld) [Vol rate/Area]mL/min/1.73 j5Tcvfvs>=59mL/min/1.73 m2[facility] Chem S Glucose [Mass/Vol]73 mg/zNJtltuf73 - 199 mg/dLFT RemisolPotassium [Moles/Vol] 4.4 mmol/LNormal3.5 - 5.3 mmol/LFTMC RemisolSodium [Moles/Vol]136 mmol/LNormal 135 - 145 mmol/LFTMC RemisolUrea nitrogen [Mass/Vol]18 mg/dLNormal5 - 21 mg/dL [facility] RemisolHEMATOLOGYOrdered By: Vivian Mcclain on 61-28-1138Ytfykqlvaqh distribution width (RBC) [Ratio]13.2 %Xigapj37.9 - 14.2 %[facility] HemeAutoSS Hematocrit (Bld) [Volume fraction]35.7 %Tvqukw90.0 - 46.0 %FT HemeAutoSS Hemoglobin (Bld) [Mass/Vol]12.1 g/cNXpbapi99.0 - 16.0 gm/dLFTMC HemeAutoSSMCH (RBC) [Entitic mass]29.7 kbMxiaij09.0 - 34.0 pgFTMC HemeAutoSSMCHC (RBC) [Mass/Vol]33.8 g/bFSdxqrd24.4 - 36.0 gm/dLFTMC HemeAutoSSMCV (RBC) [Entitic vol] 87.7 uWGqwpei58.0 - 100.0 fLFTMC HemeAutoSSPlatelet mean volume (Bld) [Entitic vol]8.2 fLNormal6.4 - 10.8 fLFTMC HemeAutoSSPlatelets (Bld) [#/Vol]220.0 E9/L Vjomnn465.0 - 500.0 E9/LFTMC HemeAutoSSRBC (Bld) [#/Vol]4.1 E12/LLow4.3 - 5.9 E12/LFTMC HemeAutoSSWBC corrected for nucl RBC Auto (Bld) [#/Vol]4.3 E9/LNormal 4.0 - 11.0 E9/LFTMC HemeAutoSS Vital Signs Date TimeVital SignValuePerforming EtcqjqysjFnomlmpo22-44-7926 10:29-0400Body mass index (BMI) [Ratio]25.42 kg/t7XzxqcmJordin Garcia MD Work Phone: [facility] CenterEwsyrfhnnt97-74-1699 10:29-0400Body .05 kgJordin Garcia MD Work Phone: [facility] CenterHkzawnsqkt19-72-8451 10:29-0400Diastolic blood ivhuzzji11 mm[Hg]Jordin Garcia MD Work Phone: [facility] CenterNisvdxqbkl97-59-9679 10:29-0400Systolic blood iiylmyre714 mm[Hg]Jordin Garcia MD Work Phone: [facility] CenterPfqlpugtze00-95-0878 13:45-0400Blood Pressure LocationMichael NILL [facility]05-09-2023 13:45-0400Diastolic blood wagecsad75 mm[Hg]Ranjan NILL [facility]05-09-2023 13:45-0400Heart rate 72 /minMichael NILL [facility]05-09-2023 13:45-0400 Respiratory rate16 /minMichael NILL [facility]05-09-2023 13:45-0400Systolic blood gwjpammj396 mm[Hg]Ranjan NILL [facility]03-21-2023 12:24-0400Heart rate 66 /minDavibhavani Pocos [facility]03-21-2023 12:24-4909PeH3% (BldA) [Mass fraction]97 %Jacob Wang [address]03-21-2023 12:23-0400 Respiratory rate18 /minDavid Pocos [address] [place], [place] 6013503-21-2023 12:23-0400 Diastolic blood mm[Hg]Jacob Pocos [address] [place], [place] 6013503-21-2023 12:23-0400Mean blood ixjxcpet20 mm[Hg]Jacob Pocos [address] [place], [place] 6013503-21-2023 12:23-0400 Systolic blood jvxicavq592 mm[Hg]Jacob Pocos [address] [place], [place] 6013503-21-2023 09:20-0400Heart rate84 /minDavid Pocos [address] [place], [place] 6013503-21-2023 09:20-3627MzV9% (BldA) [Mass fraction]91 %Jacob Pocos [address] [place], [place] 6013503-21-2023 09:19-0400 Diastolic blood eufvxrjk71 mm[Hg]Jacob Pocos [address] [place], [place] 6013503-21-2023 09:19-0400Mean blood thwhehiv520 mm[Hg]Jacob Pocos [address] [place], [place] 6013503-21-2023 09:19-0400 Systolic blood aglggesl428 mm[Hg]Jacob Pocos [address] [place], [place] 6013503-21-2023 09:19-0400Blood Pressure LocationDavid Pocos [address] [place], [place] 6013503-21-2023 09:18-0400 Respiratory rate18 /minDavid Pocos [address] [place], [place] 6013503-21-2023 09:15-2583XhR8% (BldA) [Mass fraction]91 %Jacob Pocos [address] [place], [place] 6013503-21-2023 09:10-0400Blood Pressure LocationDavid Pocos [address] [place], [place] 6013503-21-2023 09:10-0400Body dsuuhaspnei46.7 [degF]Jacob Pocos [address] [place], [place] 6013503-21-2023 09:10-0400 Diastolic blood clyslqlh65 mm[Hg]Jacob Pocos [address] [place], [place] 6013503-21-2023 09:10-0400Heart rate78 /minDavid Pocos [address] [place], [place] 6013503-21-2023 09:10-0400Mean blood jwekxviq762 mm[Hg]Jacob Pocos [address] [place], [place] 6013503-21-2023 09:10-0400 Respiratory rate14 /minDavid Pocos [address] [place], [place] 6013503-21-2023 09:10-0400 Systolic blood mm[Hg]Jacob Pocos [address] [place], [place] 6013503-21-2023 09:00-0400Mean blood ybecklhq225 mm[Hg]Jacob Pocos [address] [place], [place] 6013503-21-2023 09:00-0400 Respiratory rate8 /minDavid Pocos [address] [place], [place] 6013503-21-2023 08:55-0400Mean blood fmjcqkti524 mm[Hg]Jacob Pocos [address] [place], [place] 6013503-21-2023 08:55-0400 Respiratory rate17 /minDavid Pocos [address] [place], [place] 6013503-21-2023 08:45-0400Body vbjpbkaxyvi97.34 [degF]Jacob Pocos [address] [place], [place] 6013503-21-2023 06:15-0400Body utdfaoanbrl24.52 [degF]Jacob Pocos [address] [place], [place] 6013503-21-2023 06:15-0400Heart rate66 /minDavid Pocos [address] [place], [place] 6013503-21-2023 06:15-0400 Respiratory rate20 /minDavid Pocos [address] [place], [place] 6013503-03-2023 07:57-0500 Diastolic blood gxmokyff40 mm[Hg]Jacob Pocos [address] [place], [place] 6013503-03-2023 07:57-0500Heart rate73 /minDavid Pocos [address] [place], [place] 6013503-03-2023 07:57-0500Mean blood lmltdakq790 mm[Hg]Jacob Pocos [address] [place], [place] 6013503-03-2023 07:57-0500 Systolic blood tvgipmfs883 mm[Hg]Jacob Pocos [address] [place], [place] 6013503-03-2023 07:56-0500Heart rate63 /minDavid Pocos [address] [place], [place] 6013503-03-2023 07:56-9312BeC6% (BldA) [Mass fraction]99 %Jacob Pocos [address] [place], [place] 6013503-03-2023 07:56-0500 Respiratory rate16 /minDavid Pocos [address] [place], [place] 9920103-03-2023 07:56-0500 Diastolic blood mgazseuk63 mm[Hg]Jacob Pocos [address] [place], [place] 9920103-03-2023 07:56-0500Mean blood ugshafbz643 mm[Hg]Jacob Pocos [address] [place], [place] 6013503-03-2023 07:56-0500 Systolic blood cdmeldbd033 mm[Hg]Jacob Pocos [address] [place], [place] 6013508-31-2022 14:00-0400Blood Pressure LocationMartín Bourne [address] [place], [place] 3607808-31-2022 14:00-0400 Diastolic blood jysrztsb84 mm[Hg]Martín Bourne [address] [place], [place] 3607808-31-2022 14:00-0400Heart rate78 /minMartín Bourne [address] [place], [place] 3607808-31-2022 14:00-0400 Respiratory rate18 /minMartín Bourne [address]08-31-2022 14:00-9593QhC3% (BldA) [Mass fraction]96 %Martín Bourne [address]08-31-2022 14:00-0400 Systolic blood aahdgpqp577 mm[Hg]Martín Bourne [address]07-29-2022 11:09-0400Blood Pressure LocationAnnalise WARREN [address]07-29-2022 11:09-0400 Diastolic blood dfmduuur56 mm[Hg]Annalise WARREN [address]07-29-2022 11:09-0400Heart rate70 /minAmanda KELVIN [address] [place], [place] 3607807-29-2022 11:09-0400 Respiratory rate18 /minAmanda KELVIN [address] [place], [place] 4397107-29-2022 11:09-2702ItF1% (BldA) [Mass fraction]100 %Annalise WARREN [address] [place], [place] 4397107-29-2022 11:09-0400 Systolic blood xvevcnmx330 mm[Hg]Annalise WARREN [address] [place], [place] 3607807-01-2022 11:47-0400Blood Pressure LocationMartín Bourne [facility]07-01-2022 11:47-0400 Diastolic blood vaeakyun25 mm[Hg]Martín Bourne [facility]07-01-2022 11:47-0400Heart rate60 /minRyan Steffen [facility]07-01-2022 11:47-0400 Respiratory rate18 /minRyan Steffen [facility]07-01-2022 11:47-8171PuN7% (BldA) [Mass fraction]100 %Martín Steffen [facility]07-01-2022 11:47-0400 Systolic blood uymtfxct652 mm[Hg]Martín Bourne [facility]06-01-2022 15:28-0400 Diastolic blood ahqnpxmy14 mm[Hg]Ranjan GONZALEZL [facility]06-01-2022 15:28-0400Heart rate68 /minMichael NILL [facility]06-01-2022 15:28-0400Mean blood jkypwjdb24 mm[Hg]Ranjan NILL [facility]06-01-2022 15:28-1132YfJ0% (BldA) [Mass fraction]98 %Ranjan NILL [facility]06-01-2022 15:28-0400 Systolic blood ruwtrvht183 mm[Hg]Ranjan NILL [facility]06-01-2022 15:28-0400Blood Pressure LocationMichael NILL [facility]06-01-2022 15:28-0400Body qtecuedkdar16.7 [degF]Ranjan NILL [facility]06-01-2022 15:28-0400 Respiratory rate16 /minMichael NILL [facility]06-01-2022 15:27-0400 Diastolic blood wixgopcr83 mm[Hg]Ranjan NILL [facility]06-01-2022 15:27-0400Heart rate68 /minMichael NILL [facility]06-01-2022 15:27-0400Mean blood epjakmqs019 mm[Hg]Ranjan NILL [facility]06-01-2022 15:27-3450IcW2% (BldA) [Mass fraction]99 %Ranjan NILL [facility]06-01-2022 15:27-0400 Systolic blood apqybfxi533 mm[Hg]Ranjan NILL [facility]06-01-2022 15:27-0400Blood Pressure LocationMichael NILL [facility]05-20-2022 15:15-0400Blood Pressure LocationMichael [facility]ILL [facility] [place] 05-20-2022 15:15-0400Diastolic blood niwgfopr57 mm[Hg] Ranjan NILL [facility] [place] 05-20-2022 15:15-0400Heart rate68 /minMichael NILL [facility] [place] 05-20-2022 15:15-0400Respiratory rate16 /minMichael NILL [facility] [place] 05-20-2022 15:150Systolic blood didtmdqh824 mm[Hg] Ranjan CARLOSL [facility] [place] Encounters Encounter DateEncounter TypeCare ProviderFacilityStart: 01-08-2025 End: 84-53-9633jsxhqauwwfYiwlevu R NILLFacility: [place]vueStart: 01-08-2025 End: 42-10-9291Lbxmpmy encounter procedureMichael R NILL [phone] [place] Start: 12-10-2024 End: 71-41-4289Fdpbzbu encounter procedureMala Dukes [employer] [address] Work Phone: Start: 12-10-2024 End: 41-13-5427qnporucgwtGgumado M Hoy MD Work Phone: [facility] Work Phone: Start: 03-27-2024 End: 82-97-2310Iqtqbe Bebe Garcia MD Work Phone: [facility] SWS OBComment on above:Osteoporosis screening (Primary Dx)Start: 03-23-2024 End: 66-61-6099sgjbaarjupFXDRVZ P JONESNot AvailableStart: 02-08-2024 End: 52-64-0109Rjnajz flowsheetNatalie A Felter [employer] Work Phone: noMS SWS DERMStart: 02-08-2024 End: 29-61-2160Glvfvz flowsheetNatalie A Felter [employer] Work Phone: [facility] SWS DERMStart: 02-08-2024 End: 70-25-5070Zekndq outpatient new 30 minutesNatalie A Felter [employer] Work Phone: [facility] SWS DERMComment on above:Lentigines (Primary Dx); Actinic keratosisStart: 02-08-2024 End: 35-08-1994sebkpcmgooRPVKAGL A FELTERNot AvailableStart: 12-29-2023 End: 59-64-0994Dsmlfvfvd encounterDavid A Pocos DO Work Phone: [facility] NB ORTHOStart: 12-26-2023 End: 78-62-3762Vwfnnln encounter procedureJordin Garcia MD Work Phone: [facility] SWS OBComment on above:Postmenopausal atrophic vaginitis (Primary Dx); Encounter for gynecological examination without abnormal finding; Screening for malignant neoplasm of cervix; Encounter for screening mammogram for malignant neoplasm of breast; Postmenopause; Osteoporosis, post-menopausal ([facility]/HCC)Start: 12-26-2023 End: 46-69-5144Ccmdegi encounter statusJordin Garcia MD Work Phone: noms HealthcareStart: 12-26-2023 End: 71-96-7038unhcypyopoLHJSTN P JONESNot AvailableStart: 07-06-2023 End: 71-32-8635rjmrdsdapfLNADH A POCOSNot AvailableStart: 08-03-2022 End: 96-04-3114Bylmenx encounter procedureMichael R NILL [facility] [place] Start: 07-17-2022 End: 43-74-5777xkjvptaudpVX MARILEE SAEED .Facility:Q0Bdkdb: 07-16-2022 End: 31-63-1117irglyhaqumEO MARILEE SAEED .Facility:K9Cbyss: 06-15-2022 End: 66-93-5289Bfpdcurnt to same day surgery centerDavid A Pocos [facility] Start: 05-28-2022 End: 63-06-5508Hwgwhlw encounter procedureDavid A Pocos [facility] Start: 11-25-2021 End: 57-94-3972Jenqlsi encounter Mimi Bourne [facility] Start: 11-04-2021 End: 97-25-1951Dlmofnf encounter procedureAnnalise Faith WARREN [facility] Start: 10-23-2021 End: 67-44-0271Pyfxsfq encounter procedureWillardda Faith WARREN [facility] Start: 10-09-2021 End: 63-60-8919Vkwbnok encounter procedureAmanda Faith WARREN [facility] Start: 10-05-2021 End: 79-16-8932Qvdjfiq encounter procedureAmanda Faith WARREN [facility] Start: 09-25-2021 End: 70-77-4780Fqzfima encounter procedureMichael R NILL [facility] [place] Start: 09-25-2021 End: 89-62-2699Qshvnfb encounter Mimi Bourne [facility] Start: 09-17-2021 End: 91-55-6975Yopxyeqmnm and management of inpatientDR MARILEE EDWARDSY .Facility:H1 Start: 09-11-2021 End: 75-43-4645zmloiprtobVH MARILEE HOY .Facility:L7Gnool: 09-11-2021 End: 31-96-7645xgesvbthbwAD MARILEE HOY .Facility:T3Jsqte: 28-71-3977muvrxyhabh DR MARILEE SAEED .Facility:P0Xgoem: 03-87-4538tydztoevguEjgqfkjg:48689Shenq: 08-26-2021 End: 31-32-9479Sjaejcb encounter procedureMichael R NILL [facility] Start: 08-17-2021 End: 96-73-2678Hmt-admission assessmentMichael R NILL [facility] Start: 08-14-2021 End: 41-68-3140Tfuijiw encounter procedureMichael R NILL [facility] [place] Procedures DateProcedureProcedure DetailPerforming ClinicianStart: 40-25-5687Jcqajxibcus Jordin Garcia MD Work Phone: start: 61-23-5898UFWGEUWXHGG SKIN LESIONNatalie A Felter [employer] Work Phone: Start: 90-34-2857GzchkibmdcsWnzjh Pocos DO Work Phone: Start: 89-34-8783Kzbqqgzjnzue of kneeDavid Pocos Start: 32-89-3285Errbxfcnjg Right Femoral Region with Synthetic Substitute, Open ApproachDR MARILEE SAEED .Start: 35-56-6242Yiuxul of right femoral herniaRyan Steffen Start: 80-40-8614Jwxmxm of hipMichael NILL Start: 12-03-7399FmfiszkhgalWzqdt Pocos DO Work Phone: Start: 25-47-8456FrotbpxzfseAhrmcfk NILL Arthroplasty of kneeMichael NILL Augmentation mammoplastyMichael NILL ColonoscopyMichael NILL Ligation of fallopian tubeMichael NILL Plan of Treatment DateCare ActivityDetailAuthorStart: 80-16-1953Urucvujxe for malignant neoplasm of breastMammogramNOMS HealthcareStart: 02-07-2025 End: 29-58-1841Rwazcrs encounter uyzzklcad37/13/2025 9:35 AM EST [facility] [address] [place] [id number] Belinda Ramirez, [employer] TRIMMER [address] [place] [address] [facility] DERMStart: 38-49-8755Xzmrbaley for malignant neoplasm of colonNOMS HealthcareStart: 03-23-2024 End: 63-37-2309Jlbsczzeapxx / ancillary services managementNOMS IMAG[facility] Start: 03-19-2024 End: 09-88-5721OZD Breast - bilateral screeningBilateral screening mammogram with tomosynthesis Imaging Routine Encounter for screening mammogram for malignant neoplasm of breast Expected: 03/19/2024, Expires: 02/24/2025[facility] Work Phone: comment on above:Expected: 03/19/2024, Expires: 02/24/2025Start: 48-69-4057Eadpnoxwk for malignant neoplasm of breastMammogram [facility] HealthcareStart: 12-26-2023 End: 42-66-6442OOT Skeletal system Views for bone densityDEXA bone density Imaging Routine Osteoporosis, post-menopausal (CMS/HCC) Expected: 12/26/2023, Expires: 12/25/2024NO[facility] HealthcareComment on above:Expected: 12/26/2023, Expires: 12/25/2024Start: 27-99-2564Ifldmpdea vaccinationInfluenza Vaccine (#1) [facility] HealthcareStart: 62-85-5919Upuwbjutwwwq Vaccine: 65+ Years (1 of 1 - PCV) Pneumococcal Vaccine: 65+ Years (1 of 1 - PCV)[facility] HealthcareStart: 1955 Screening for malignant neoplasm of colonNOMS Healthcare Immunizations Immunization DateImmunizationNotesCare YlkdkjqdOhkkuove93-50-7943SUXX-GfQ-3 (COVID-19) mRNA BNT-162b2 Erika GONZALEZL [facility] Surgery BellevueComment on above:Result Comment: 2022-07-28: EAF3478-31-2680DHEN-RbJ-9 (COVID-19) mRNA BNT-162b2 jose manuel GONZALEZL [facility] Surgery BellevueComment on above:Result Comment: 2022-07-28: [id number] Payers DatePayer CategoryPayerPolicy [id number] 2025Unknown [id number] Health InsuranceM[facility] , [id number] [facility] [id number] 2022-Present [address] [facility] [place] [id number] 2022Medicare [id number] [id number] 1960 [id number]-[id number] 2.16.840.1.737959.3.57[id number] 2.16.840.1.757828.3.57[id number] 2.16840.1.795886.3.57[id number] 2.16840.1.040778.3.57[id number] 2.16840.1.703195.3.57[id number] 2.840.1.465587.3.579.[id number] 2.840.1.396096.3.57[id number] 2.840.1.927823.3.579.2.[id number] 2.840.1.811619.3.579.[id number] 2.840.1.647256.3.579.[id number] 2.16840.1.658189.3.579.[id number] 2.16840.1.243246.3.579.[id number] 2.16840.1.121536.3.579.[id number] 2.16840.1.941726.3.57[id number] 2.16.840.1.34249[id number] 2.16.840.1.625634.3.579.2.531 Social History DateTypeDetailFacilityStart: 08-14-2021 End: 67-48-4323Kjdvqih smoking statusEx-smoker (finding)[facility] [place] Tobacco smoking statusNeverGeneral Surgery [place] Start: 12-26-2023 End: 17-95-5033Vbp Assigned At [facility] [place] Start: 01-05-1976 End: 05-54-0353Oypyyfo of tobacco useCurrent smokerNOMS HealthcareStart: 01-05-1976 End: 73-13-2750Effifgv of tobacco useCigarette SmokerNOMS HealthcareStart: 12-26-2023 End: 63-51-4621Hdbufqgetx smoked current (pack per day) - Reported0.5NOMS HealthcareStart: 44-72-6101Yokmdfe use and exposureSmokeless tobacco non-user [facility] HealthcareStart: 12-26-2023 End: 19-12-9629Oafnnyrqm beverage intakeEx-drinker (finding)[facility] Healthcare Start: 59-98-1851Lohylhv CommentI quit many times,seldom smoked more than 1/2 packNOMS HealthcareStart: 31-76-8404Srxlsup Commentcaffeine: 1-2 cups per day, coffee/teaNOMS HealthcareStart: 68-93-4777Cdk assigned at [facility] HealthcareStart: 78-18-4349Cyvrpa identityIdentifies as female gender (finding) [facility] CenterT[facility] status NHISUnknown if ever smokedSelect Medical [facility] Work Phone: Start: 25-11-1465RowDpmuav (finding)[facility] [place] Medical Equipment Procedure CodeEquipment CodeEquipment Original TextEquipment IdentifierDatesKNEE TOTAL ROBOT ARTHROPLASTY Pocos DO, Jacob Jean Baptiste 06/15/22 Unknown Knee RFDAStart: 54-07-4287XZBT TOTAL ROBOT ARTHROPLASTY Pocos DO, Jacob Jean Bpatiste 06/15/22 Unknown Knee R FDAStart: 39-64-6754TYPO TOTAL ROBOT ARTHROPLASTY Pocos DO, Jacob Jean Baptiste 06/15/22 Unknown Knee RFDAStart: 66-15-9442NWEJ TOTAL ROBOT ARTHROPLASTY Pocos DO, Jacob Jean Baptiste 06/15/22 Unknown Knee RFDAStart: 19-22-0850MNUE TOTAL ROBOT ARTHROPLASTY Pocos DO, Jacob Jean Baptiste 06/15/22 Unknown Knee RFDAStart: 84-82-5943XBQH TOTAL ROBOT ARTHROPLASTY Pocos DO, Jacob Jean Baptiste 06/15/22 Unknown Knee RFDAStart: 45-80-3862CORD TOTAL ROBOT ARTHROPLASTY Pocos DO, Jacob Jean Baptiste 06/15/22 Unknown Knee RFDAStart: 40-70-8935IOXQ TOTAL ROBOT ARTHROPLASTY Pocos DO, Jacob Jean Baptiste 06/15/22 Unknown Knee R FDAStart: 21-57-5911SLUJ TOTAL ROBOT ARTHROPLASTY Pocos DO, Jacob Jean Baptiste 06/15/22 Unknown Knee RFDAStart: 93-55-8776LKZN TOTAL ROBOT ARTHROPLASTY Pocos DO, Jacob Jean Baptiste 06/15/22 Unknown Knee RFDAStart: 81-10-6968LKRE TOTAL ROBOT ARTHROPLASTY Pocos DO, Jacob Jean Baptiste 06/15/22 Unknown Knee RFDAStart: 04-31-3560QIBZ TOTAL ROBOT ARTHROPLASTY Pocos DO, Jacob Jean Baptiste 06/15/22 Unknown Knee RFDAStart: 06-15-2022 Functional Status DfpwLxbrgmvfwgLbytqpDywqwfso84-47-4363Ubxgwtylda StatusN/AGeneral Surgery Emtaklqc53-60-6188Lxaisxlyok StatusNo[facility]08-31-2022 Functional StatusN/[facility]07-29-2022Functional StatusN/A [facility]07-01-2022Functional StatusN/[facility] Clinical Notes 09-17-2021 to 01-08-2025 Note Date & AdwnLjojMdzxnbof37-61-1096 NoteGeneral Surgery Office/Clinic Note Chief Complaint consultation for colonoscopy HPI Staff 69 year old female presents on consultation for screening colonoscopy. Denies abdominal or rectal pain. No rectal bleeding or change in bowel habits. Denies nausea, vomiting or weight loss. Last colonoscopy completed 10/2014- normal. No known family history of colon cancer. History of Present Illness 69 yo female with h/o hypercholesterolemia, osteoporosis, eczema, referred for colorectal screening; denies change in bms or blood in stools, no abd complaints; last colonoscopy 2014, wnl; abd operations significant for repair of right femoral hernia; on Meloxicam daily, no tobacco use; no fmhx of GI malignancy or IBD. Review of Systems PHQ Score Initial Depression Screen Score: 0 SCORE ROS - Provider Constitutional: no fever, no sweats, no weight loss. Eyes: no glasses, no blurred vision, no visual loss. ENMT: no dentures, no hoarseness, no swallowing difficulties, no hearing loss, no ear infection(s),no nose bleeds. Cardiovascular: normal blood pressure, no chest pain, regular heartbeat, no heart murmur. Respiratory: no shortness of breath, no cough, no asthma, no wheezing. Gastrointestinal: no nausea, no vomiting, no diarrhea, no constipation, no blood in stool, no change in bowel habits, no abdominal pain, no hepatitis. Genitourinary: no kidney stones, no urine infection, no dysuria. Musculoskeletal: no pain, no weakness. Skin: no changing moles, no rash, no skin lumps. Neurologic: no seizures, no epilepsy, no headache. Psychiatric: no emotional or psychiatric problem. Heme/Lymph: no bleeding problems, no anemia, no blood clots, no transfusions. Allergy/Immunologic: no swollen lymph nodes/glands, no IV drug abuse. Other: Additional ROS info: Except as noted in the above Review of Systems and in the History of Present Illness, all other systems have been reviewed and are negative or noncontributory. Physical Exam Vitals & Measurements HR: 72(Peripheral) RR: 16 BP: 122/76 HT: 162.5 cm HT: 64 in WT: 63.5 kg WT: 139.993 lb BMI: 24.05 HEENT: normal conjunctiva, sclera clear, no scleral icterus, EOM intact, PERRLA, oral mucosa moist without lesions. Neck: trachea midline, no mass, symmetric, no thyromegaly or nodules, no adenopathy Respiratory: lungs CTA, respirations non labored. Cardiovascular: regular rate and rhythm, no murmur, no pedal edema or varicosities. Gastrointestinal: soft, non distended, no tenderness, no masses, no palpable hernias, diastasis recti no, no hepatosplenomegaly; normal bs Musculoskeletal: normal gait, digits and nails without infection, nodes, cyanosis, clubbing. Skin: no rashes, no lesions, no ulcers, no subcutaneous nodules, induration. Psychiatric/Neuro: oriented to time, place, person, judgement normal, affect appropriate for age, insight intact, no focal deficits. Tests: , review of old records completed , Discussed surgical options, risks, and possible complications with patient. Assessment/Plan 1. Screening for malignant neoplasm of colon (Z12.11: Encounter for screening for malignant neoplasm of colon) plan colonoscopy under anesthesia, informed consent obtained. Follow-up No qualifying data available Problem List/Past Medical History Ongoing Anemia Anxiety Eczema History of small bowel obstruction Insomnia Osteoporosis Pure hypercholesterolemia Screening for malignant neoplasm of colon Venous insufficiency Historical Hyperlipidemia Mood disorder Procedure/Surgical History Arthroplasty of knee (06/15/2022), Repair of right femoral hernia (09/17/2021), Arthroplasty of thehip (01/05/2019), Colonoscopy (10/30/2014), Arthroplasty of knee, Breast augmentation, Colonoscopy,Tubal ligation. Medications calcium (as carbonate) 600 mg oral tablet, 600 mg= 1 tab(s), Oral, Daily Celebrate Multivitamin oral capsule, 1 tab, Oral, Daily citalopram 10 mg Tab, 10 mg= 1 tab(s), Oral, Daily meloxicam 7.5 mg Tab, 7.5 mg= 1 tab(s), Oral, Daily raloxifene 60 mg Tab, 60 mg= 1 tab(s), Oral, Daily Reclast 5 mg/100 mL Soln-IV, 5 mg= 100 mL, IV, Once simvastatin 20 mg Tab, 20 mg= 1 tab(s), Oral, Once a day (at bedtime) Vitamin B Complex oral capsule, 1 cap(s), Oral, Daily Allergies No Known Allergies No Known Medication Allergies Social History Alcohol - Denies Alcohol Use, 08/14/2021 Substance Abuse - Denies Substance Abuse, 08/14/2021 Tobacco - Denies Tobacco Use, 08/26/2021 Former smoker, quit more than 30 days ago Tobacco Use:. Never Smokeless Tobacco Use:. Cigarettes, 0.5 per day. Started age 20.0 Years. Stopped age 28 Years., 01/08/2025 Family History Dementia: Father. Hyperlipidemia: Mother and Father. Hypertension: Mother and Father. Hypothyroidism: Father and Brother. Immunizations Vaccine Date Status Comments SARS-CoV-2 (COVID-19) mRNA BNT-162b2 vax 12/25/2020 Recorded 2022-07-28: [id number] SARS-CoV-2 (COVID-19) mRNA BNT-162b2 vax (more content not included)... [facility]:Result Comment: Electronically Signed By: CUCO FRANKEL, Ranjan Mijares\Date and Time Signed: 01/08/25 15:03 EDT 03-27-2024 History of Present illness Narrative* Jordin Garcia MD - 03/27/2024 5:54 PM EST osteoporosis documented in this encounterNorthwest [facility] [id number] History of Present illness Narrative* Belinda Ramirez [facility]NLONG [facility] - 02/08/2024 9:35 AM EST Lesions: Location: right cheek Duration: 1 year [...] benign pigmented lesions that occur on sun-exposed andsun-damaged skin. No treatment is necessary. Recommended regular use of broad spectrum sunscreen SPF 30 or higher. Start Altreno lotion. Instructed on use of prescribed medication. Discussed referralto Dr. Huddleston for possible laser. Patient wishes to proceed with referral. Tretinoin (Altreno) 0.05 % lotion - Head - Anterior (Face) Apply thin layer to face at bedtime Ambulatory referral to Plastic Surgery - Head - Anterior (Face) 2. Actinic keratosis (8) Glabella, Left Forehead, Left Zygomatic Area, Mid Forehead (2), Right Malar Cheek (2), Right [place] Erythematous scaly papules Patient was counseled regarding these sun-induced growths that can develop into squamous cell carcinoma if left untreated. Discussed treatment with cryotherapy. It was emphasized that any treated lesions that fail to resolve should be re- evaluated. Cryotherapy performed today; see procedure note Diagnosis: Actinic keratosis Indication: Precancerous Location: see skin exam Consent: Verbal consent was obtained and risks were discussed, including, but not limited to risks of scarring, darker or lumber racker pigmentary changes, recurrence, incomplete removal and infection. [...] Forehead (2), Right Malar Cheek (2), Right [place] Next Visit: 6 months-1 year for FBSE documented in this [facility]10-03-2024 Miscellaneous Notes* Telephone Encounter - Shara Cuadra - 12/29/2023 3:00 PM EDT Was wanting a referral to a new Dermatology place, [facility] is not working out, said [facility] wouldgive her a name for someone new. documented in this [facility]10-03-2024 Telephone encounter Note* Telephone Encounter - Shara Cuadra - 12/29/2023 3:00 PM EDT Was wanting a referral to a new Dermatology place, [facility] is not working out, said [facility] wouldgive her a name for someone new. [facility] History of Present illness Narrative* Jordin Garcia MD - 12/26/2023 10:30 AM EDT Images from the original note were not included. Jordin Garcia MD Obstetrics and Gynecology Patient: Colette Valente : 1955 (68 y.o.) Yearly Wellness Exam Date: 12/26/2023 Reason for Visit - Chief Complaint Patient presents with Gynecologic Exam LMP: ASPHALT PAVER Last DEXA: 02/25/21 Last Mammogram: 03/18/23 Last [...] Mental illness Maternal Grandfather Diabetes Paternal Grandmother Lachellesaad Leonard Heart disease Sibling Brain cancer Father's [...] to gross testing, coordination, and gait are normalor at baseline unless noted below. Physical Exam [...] cream for vaginal atrophy documented in this encounterNorthwest Medical CenterWxolofkkie82-27-6998 Evaluation + Plan note Extracted from:Title:EDWIGE post opAuthor:Duglas Hemphill MDDate:06/15/22 Plan Transfer/Discharge: Transfer/Discharge Discharge when meets criteria ( To home ). Extracted from:Title:EDWIGE GAAuthor:Duglas Hemphill MDDate:06/15/22 Plan [place] [employer] Anesthesiologists (ASA) physical status classification: Class II. Anesthetic Preoperative Plan: Anesthesia [facility] 06-15-2022 Hospital Discharge instructions Patient Education 06/15/2022 09:33:41 [...] as possible. If the spirometer includes a athletic coach indicator, use this to guide you [...] 07/25/2007 Document Revised: 04/06/2018 Document Reviewed: 01/25/2018 [employer]Pong[employer] Patient Education 2020 [employer]. 06/15/2022 09:33:41 Knee Cryocuff Patient Instructions - FT (CUSTOM) 06/15/2022 09:33:41 Post Op Patient Instructions - FT (CUSTOM) 06/08/2022 07:21:16 [place] - Total Knee Arthroplasty. Revised 05/19/11. (Custom) [place] [facility] DISCHARGE INSTRUCTIONS TOTAL KNEE [...] will continue at home, possible with the tax accounting assistant of Home Health Physical Therapy or [...] FOLLOW-UP OFFICE VISIT: 4 weeks postop. Jacob Wang, DO [facility] [address] [place] [address] [phone] Reviewed: 07-03 Revised 04/08 Follow Up Care 2022 09:14:20 With:Jacob Wang Address: [address] [place] [address]- Business (1) When:07/14/2022 10:15:00 [facility]07-01-2022 Hospital Discharge instructions Follow Up Care 09/25/2021 12:09:54 With:Steffen FRANKEL, Martín Smith Address: When: Unknown Comments:Call for sooner apt with new/worsening symptoms [facility]06-23-2022 NoteOPERATIVE NOTE OPERATION DATE: 09/17/2021 PREOPERATIVE DIAGNOSIS: Incarcerated right femoral hernia with bowel obstruction. POSTOPERATIVE DIAGNOSIS: Incarcerated right femoral hernia with bowel obstruction. PROCEDURE: Repair of right femoral hernia with mesh patch to the weakened inguinal floor. SURGEON: Ranjan Norwood M.D. ANESTHESIA: General endotracheal as well as local with Exparel solution. SOLAR TECH: MARGARET Robins INDICATIONS AND CONSENT: Patient is [...] recovery room in good condition. CC: Marilee Saeed M.D. [facility] Signed and Approved by: DR RANJAN NORWOOD . 09/18/2021 12:52:00[facility]06-23-2022 NoteHISTORY AND PHYSICAL EXAMINATION Date:09/17/2021 CHIEF COMPLAINT: [...] answered. Informed consent was obtained. CC: Marilee Seaed M.D. [facility] Signed and Approved by: DR RANJAN NORWOOD . 09/18/2021 12:52:00[facility] No data available for this section General Surgery [place] Evaluation + Plan note Future Appointments Appointment Date:09/03/2021 10:00:00 AM Scheduled Provider: Location:[facility] Appointment Type:Surgery FT [facility] + Plan note Future Appointments Appointment Date:10/05/2021 01:00:00 PM Scheduled Provider: Location:.[facility] Appointment Type:CV Stress (FT) Appointment Date:10/09/2021 02:00:00 PM Scheduled Provider:Ranjan NORWOOD MD Location:[facility] Appointment Type: Post Op 15 Appointment Date:10/23/2021 11:00:00 AM Scheduled Provider:Annalise WARREN CNP Location:[facility] Appointment Type:Cardiology Follow Up (FT) Future Scheduled Tests Radiology* Echo Transthoracic Complete 09/25/21 * ECG Stress Exercise 10/05/21 [facility] + Plan note Future Appointments Appointment Date:10/05/2021 01:00:00 PM Scheduled Provider: Location:.[facility] Appointment Type:CV Stress (FT) Appointment Date:10/09/2021 02:00:00 PM Scheduled Provider:Ranjan NORWOOD MD [facility] Appointment Type: Post Op 15 Appointment Date:10/09/2021 03:00:00 PM Scheduled Provider: [facility] Type:CV Echo (FT) Appointment Date:10/23/2021 11:00:00 AM Scheduled Provider:Annalise WARREN CNP Location:[facility] Appointment Type:Cardiology Follow Up (FT) Future Scheduled Tests Radiology* Echo Transthoracic Complete 10/09/21 * ECG Stress Exercise 10/05/21 [facility] + Plan note Future Appointments Appointment Date:10/09/2021 02:00:00 PM Scheduled Provider:Ranjan NORWOOD MD Location[facility] Appointment Type: Post Op 15 Appointment Date:10/09/2021 03:00:00 PM Scheduled Provider: Location:.[facility] Appointment Type:CV Echo (FT) Appointment Date:10/23/2021 11:00:00 AM Scheduled Provider:Annalise WARREN CNP Location[facility] Appointment Type:Cardiology Follow Up (FT) Future Scheduled Tests Radiology* Echo Transthoracic Complete [facility] App[facility]ments Appointment Date:10/23/2021 11:00:00 AM Scheduled Provider:Annalise WARREN CNP Location:[facility] Appointment Type:Cardiology Follow Up (FT) General Surgery [place] Evaluation + Plan note Future Appointments Appointment Date:11/25/2021 02:00:00 PM Scheduled Provider:Martín Bourne MD [facility] Type:Cardiology Follow Up (FT) Future Scheduled Tests Radiology* CTA Chest 10/23/21 [facility] Future Appointments Appointment Date:11/25/2021 02:00:00 PM Scheduled Provider:Martín Bourne MD Location[facility] Appointment Type:Cardiology Follow Up ([facility]) [facility] Future Appointments Appointment Date:06/15/2022 07:30:00 AM Scheduled Provider: Location:[facility]* Diagnosis Postmenopausal atrophic vaginitis- Primary Encounter for gynecological examination without abnormal finding Screening for malignant neoplasm of cervix Screening for malignant neoplasm of the cervix Encounter for screening mammogram for malignant neoplasm of breast Postmenopause Asymptomatic postmenopausal status (age-related) (natural) Osteoporosis, post-menopausal (CMS/HCC) Senile osteoporosis [facility] Diagnosis Lentigines- Primary Actinic keratosis [facility]* Diagnosis Osteoporosis screening- Primary Special screening for osteoporosis documented in this [facility] noteNo assessment information availableSelect Medical [facility] Work Phone: Hospital Discharge instructions No data available for this section General Surgery [place] Progress note No data available for this section [facility] (narrative)No reason for referral information availableSelect Medical [facility] Work Phone: Summary Purpose Family History No Family History Records FoundNo Family History Records FoundNo Family History Records FoundNo Family History Records FoundNo Family History Records Found No data available for this section No Family History Records Found Advance Directives No Advanced Directives Records Found Advance Directive Response Recorded Date/ Time Advance Directives No September 07 10:40am Additional Source Comments Care Team (unrecognized sect ion and content) Team MemberRelationshipSpecialtyStart DateEnd Date Marilee Saeed MD [address] [facility] [place] [phone] PCP - [facility]09/15/22Team MemberRelationshipSpecialtyStart DateEnd Date Marilee Saeed MD [address] [facility] [place] [address] PCP - [facility]09/15/22Te MemberRelationshipSpecialtyStart DateEnd Date Marilee Saeed MD [address] [place] [address] PCP - [facility]09/15/22Team MemberRelationshipSpecialtyStart DateEnd Date Marilee Saeed MD [address] [facility] [place] [phone] PCP - [facility]09/15/22 Team Status: Active Member Role Status Dates Marilee Saeed MD Primary Care Provider Active Team Status: Inactive Member Role Status Dates Marilee Saeed MD Primary Care Provider Active Start: December 10, 2024 End: December 10lakshmi Dukes NP-CAttending ProviderActiveStart: December 10, 2024 End: December 10, 2024 INFORMATION SOURCE (unrecogn ized section and content) DATE CREATED AUTHOR 12/30/2021 [facility] DATE CREATED AUTHOR AUTHOR'S ORGANIZ ATION 03/20/2022 [facility] DATE CREATED AUTHOR AUTHOR'S ORGANIZ ATION 07/23/2022 [facility] DATE CREATED AUTHOR AUTHOR'S ORGANIZ ATION 03/28/2024 [facility] EP[facility] DATE CREATED AUTHOR AUTHOR'S ORGANIZ ATION 12/28/2024 [facility] DATE CREATED AUTHOR AUTHOR'S ORGANIZ ATION 01/10/2025 [facility] Reason for Visit (unrecogniz ed section and content) ReasonCommentsGynecologic ExamReasonCommentsSuspicious Skin Lesion Goals (unrecognized section and content) Goals may be documented in a n alternate section FOR RECORDS PERTAINING TO PATIENTS WHO ARE [...] BE BASED ON THE PRIMARY CLINICAL RECORDS. [facility] [employer] [facility]. provides no warranty or guarantee of the accuracy or completeness of information in this document.
--- OUTSIDE RECORDS SUMMARY | 2025-01-30 06:44 | XMS_ITS | Clinical Summary ---
Author Organization [facility] Address [address] [place] [address] Care Team Providers Care Browning Processor Name Role Phone Evin Mora MD Primary [...] per day, coffee/teaPHQ-2AnswerDate Recorded Patient Health Questionnaire-2 [id number] and Gender InformationValueDate RecordedSex Assigned at DhaigIbzweb30/20/2023 6:26 PM EDT Legal YsfZixctz47/15/2023 7:06 PM EDTGender QqfqiqaaSjrrog94/20/2023 6:26 PM EDT Sexual OrientationNot on file Last Filed Vital Signs Vital SignReadingTime TakenCommentsBlood Chiwpmfr111/7412/26/2023 10:29 AM EDT Pulse--Lctuaoweykl58.6 ??C (97.8 ??F)12/27/2022 9:18 AM EDTRespiratory Rate-- Oxygen Saturation--Inhaled Oxygen Concentration--Xqqboi57 kg (139 lb)12/26/2023 10:29 AM OKSKftsfy215.5 cm (5' 2 )07/06/2023 9:27 AM EDTBody Mass Index25.42 07/06/2023 9:27 AM EDT Plan of Treatment DateTypeDepartmentCare Team (Latest Contact Info)Ibtylzxherg90/13/2025 9:35 AM ESTOffice Visit [facility] [address] [place] [address] Belinda Ramirez, ASBESTOS ABATEMENT WORKER-SQL SERVER DBA [address] [place] [address] Medical Devices ImplantedTypeAreaManufacturerDevice IdentifierShelf Expiration DateModel / Serial / LotBreast ImplantBreast ImplantBilateral: Breast Insurance Care Teams Team MemberRelationshipSpecialtyStart Date Evin Mora MD PCP - GeneralFamily Medicine09/15/22
--- OUTSIDE RECORDS SUMMARY | 2025-01-30 06:44 | XMS_ITS | Patient Health Record ---
Author Organization [facility] [place] Address [address] [place] [address] Care Team Providers Care Senior Analyst Market Intelligence Name Role Phone Vikram Mora Primary Care Provider [phone] Allergies Allergen (clinical drug ingredient) Drug/Non Drug Allergy documented on EMR Reaction Allergy Type Onset Date Status alendronate Fosamax bad diarrhea Drug Allergy Active Results Component Value Reference Range Notes TSH Reviewed date:10/22/2024 01:09:55 PM Interpretation: Performing Lab: Notes/Report: [facility] [place] , Thyroid Stimulating Hormone 1.670 0.358-3.740 u IU/mL Performing Lab:see noteML - [facility] LBT4 Reviewed date:10/22/2024 01:09:55 PM Interpretation: Performing Lab: Notes/Report: [facility] [place] ,T4 Thyroxine7.404.80-13.90 ug/dLPerforming Lab:see noteML - [facility] LBLIPID PROFILE Reviewed date:10/22/2024 01:09:55 PM Interpretation: Performing Lab: Notes/Report: [facility] [place] ,Vsfvdtfakfkpf39<=150 mg/bBHpycodiwzjg152<=200 mg/dLHDL Vqmtyilisgq1237-69 mg/dL > or =60 mg/dl - LOW CARDIOVASCULAR RISK <40 mg/dl - HIGH CARDIOVASCULAR RISK LDL Cholesterol Sivwsmyepm31.0 130-159 mg/dl BORDERLINE HIGH <100 mg/dl OPTIMAL 160-189 mg/dl HIGH 100-129 mg/dl NEAR OR ABOVE OPTIMAL >190 mg/dl VERY HIGH VLDL MTRBFACFGUI28.8Chol HDL Ratio2.0 7.1 - 11.0 MODERATE RISK 3.3 - 4.4 LOW RISK >11.0 HIGH RISK 4.4 - 7.1 AVERAGE RISK Performing Lab:see note - [facility] LBGLYCOHEMOGLOBIN A1C Reviewed date:10/22/2024 01:09:55 PM Interpretation: Performing Lab: Notes/Report: [facility] [place] ,Glycohemoglobin A1C5.54.5-6.2 % ADA THERAPEUTIC TARGET < 7.0 ADA RECOMMENDED LIMIT 4.0 - 6.0 > 7.0 ACTION SUGGESTED Estimated Average Hekkubh685Kbpwszquhp Lab:see note - [facility] LB FREE T3 Reviewed date:10/22/2024 01:09:55 PM Interpretation: Performing Lab: Notes/Report: [facility] [place] ,Free T32.442.18-3.98 pg/mLPerforming Lab:see note - [facility] LB CBC AUTO DIFF Reviewed date:10/22/2024 01:09:55 PM Interpretation: Performing Lab: Notes/Report: [facility] [place] ,White Blood Count3.54.0-11.0 10 3/uLRed Blood Count4.084.20-5.40 10 6/uL Axsbghmzcx16.412.0-16.0 g/qHOsflmzqmtu16.336.0-48.0 %Mean Corpuscular Fdlbpf80.4 81.0-99.0 fLMean Corpuscular Dfgzrsafja55.426.7-34.0 pgMean Corpuscular HGB Conc 33.229.9-35.2 g/dLRed Cell Distribution Width13.111.0-15.0 %Platelet Jxorx835 150-450 10 3/uLMean Platelet Dqjcqk68.29.5-13.5 fLNeutrophils Percent Auto56.2 43.0-75.0 %Lymphocytes Percent Auto28.220.5-60.0 %Monocytes Percent Auto8.51.7- 12.0 %Eosinophils Percent Auto5.10.9-7.0 %Basophils Percent Auto1.70.2-2.0 % Immature Granulocytes Pct Auto0.30.0-0.5 %Neutrophils Absolute Auto2.01.4-6.5 10 3/uLLymphocytes Absolute Auto1.01.2-3.8 10 3/uLMonocytes Absolute Auto0.30.3-0.8 10 3/uLEosinophils Absolute Auto0.20.0-0.7 10 3/uLBasophils Absolute Auto0.10.0- 0.1 10 3/uLImmature Granulocytes Abs Auto0.010.00-0.03 10 3/uLPerforming Lab:see noteML - [facility] [place] LBMAGNESIUM Reviewed date:10/22/2024 01:09:55 PM Interpretation: Performing Lab: Notes/Report: [facility] [place] ,Magnesium2.01.8-2.4 mg/dLPerforming Lab:see noteML - [facility] LB CBC AUTO DIFF Reviewed date:11/21/2024 06:48:18 PM Interpretation: Performing Lab: Notes/Report: [facility] [place] ,White Blood Count3.84.0-11.0 10 3/uLRed Blood Count4.244.20-5.40 10 6/uL Ujmisgpxix06.812.0-16.0 g/gYOdqemwddgf13.636.0-48.0 %Mean Corpuscular Enxjmj45.0 81.0-99.0 fLMean Corpuscular Xzmlouabds57.226.7-34.0 pgMean Corpuscular HGB Conc 33.229.9-35.2 g/dLRed Cell Distribution Width13.111.0-15.0 %Platelet Yfpey149 150-450 10 3/uLMean Platelet Volume9.99.5-13.5 fLNeutrophils Percent Auto55.2 43.0-75.0 %Lymphocytes Percent Auto27.720.5-60.0 %Monocytes Percent Auto11.01.7- 12.0 %Eosinophils Percent Auto4.20.9-7.0 %Basophils Percent Auto1.60.2-2.0 % Immature Granulocytes Pct Auto0.30.0-0.5 %Neutrophils Absolute Auto2.11.4-6.5 10 3/uLLymphocytes Absolute Auto1.11.2-3.8 10 3/uLMonocytes Absolute Auto0.40.3-0.8 10 3/uLEosinophils Absolute Auto0.20.0-0.7 10 3/uLBasophils Absolute Auto0.10.0- 0.1 10 3/uLImmature Granulocytes Abs Auto0.010.00-0.03 10 3/uLPerforming Lab:see note - [facility] LBPROF 14(COMP METB) Reviewed date:10/22/2024 01:09:55 PM Interpretation: Performing Lab: Notes/Report: [facility] [place] ,Npuuyf949698-250 mmol/LPotassium4.43.5-5.1 mmol/FEfhimkpa50654-333 mmol/LCarbon Vzkhvhl46.921.0-32.0 mmol/LAnion Gap12.8Zvcyvkv61200-965 mg/dLBlood [place]rea Tsirjwnj91.07.0-18.0 mg/dLCreatinine0.870.55-1.02 mg/dLEstimated GFR ( Adeola>60>=60 mL/min/1.73m 2Estimated GFR (Non- Aminata>60>=60 mL/min/1.73m 2BUN Creatinine Ratio20.9Onheafo1.38.5-10.1 mg/dLBilirubin Total0.50.2-1.0 mg/dL Aspartate Amino Xksxnxomzeo3854-22 U/LAlanine Dloxxxvytvhsocaf8551-52 U/L Alkaline Aitohncdbyp0521-612 U/LTotal Protein7.76.4-8.2 g/dLAlbumin Level3.73.4- 5.0 g/dLGlobulin4.0Albumin Globulin Ratio0.9Performing Lab:see note - [facility] LBIRON Reviewed date:10/22/2024 01:09:55 PM Interpretation: Performing Lab: Notes/Report: [facility] ,Pzwk271.050.0-170.0 ug/dLPerforming Lab:see note - [facility] LB Reason For Referral [...] alcohol in the p ast year? No Cazbwx8GcteqsbqxmiupuGzzbkyrmDSTEA-P (Standard) Question Answer Notes Did you have [...] in the past year?Monthly or less (1 point)Gwcusz7CitzdrrjjhlknlWelgvmrh Problems Problem Type SNOMED Code ICD Code Onset Dates Problem Status W/U Status Risk Notes Problem Magnesium deficiency (022988950) Magnesiu m deficiency (E61.2) ActiveconfirmedProblemSwollen abdomen (77933417)Right lower quadrant abdominal swelling, mass and lump (R19.03)ActiveconfirmedProblemEdema (08456648)Edema (R60.9)ActiveconfirmedProblemPeripheral venous insufficiency (55103339)Venous insufficiency (I87.2)ActiveconfirmedProblemOsteopenia (647484026)Osteopenia (M85.80)ActiveconfirmedProblemInsomnia (336938405)Insomnia (G47.00)Active confirmedProblemEczema (95284934)Eczema (L30.9)ActiveconfirmedProblemSebaceous cyst (347476605)Sebaceous cyst (L72.3)ActiveconfirmedProblemSinusitis (32742547) Sinusitis (J32.9)ActiveconfirmedProblemAllergic rhinitis (44048437)Allergic rhinitis (J30.9)ActiveconfirmedProblemImpacted cerumen (32291315)Cerumen impaction (H61.20)ActiveconfirmedProblemDiarrhea (12365678)Diarrhea (R19.7) ActiveconfirmedProblemAcute bronchitis (92757299)Acute bronchitis (J20.9)Active confirmedProblemArthritis of wrist (1217617070690)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)Active confirmedProblemConjunctivitis (4095963)Conjunctivitis (H10.9)Activeconfirmed ProblemContact dermatitis (46044540)Contact dermatitis (L25.9)Activeconfirmed ProblemInternal derangement of knee (88083002)Internal derangement of knee (M23.90)ActiveconfirmedProblemIrritable bowel syndrome (91827313)Irritable bowel disease (K58.9)ActiveconfirmedProblemWhite blood cell disorder (78734120) Abnormal white blood cell (WBC) count (D72.9)ActiveconfirmedProblemSmall bowel obstruction (574335639)Small bowel obstruction (K56.609)ActiveconfirmedProblem Osteoarthritis of knee (300333084)Osteoarthritis of right knee (M17.11)Active confirmedProblemDisease caused by Severe acute respiratory syndrome coronavirus 2 (disorder) (691532255)COVID-19 virus infection (U07.1)ActiveconfirmedProblem Headache (60156320)Headache, unspecified (R51.9)ActiveconfirmedProblemAcute Laryngitis (4428602)Acute laryngitis, without mention of obstruction (J04.0) Activeconfirmed Vital Signs Temperature 99.0 degrees Fahrenheit 09/07/2024 Blood pressure exjcuhdrl91 mm Hg01/02/20251863Dxjsak61 in01/02/2025lood pressure owqpjgsg882 mm Hg01/02/20259586Glwptz985.8 lbs1MI25.02 kg/m201/02/2025 Encounters Encounter Location Date Provider Diagnosis [facility] [address] [place] [phone] 10/22/2024 Vikram Mora Abnormal white blood cell (WBC) count D72.9 [facility] [address] [facility] [place] [address] 11/21/2024 Vikram Hoy [facility] [place] [address] 02/09/2024oug HoyHeadache, unspecified R51.9 ; Edema R60.9 ; Insomnia G47.00 and Encounter for Medicare annual wellness exam Z00.00[facility] [place] [facility] [address]/12/2024Doug [facility] [place] [facility] [place] [address]/02/2025 Vikram [facility] [facility] [place] [address]/Doug [facility] [facility] [place] [address]/09/2024Doug HoyIrritable bowel disease K58.9[facility] [facility] [place] [address]/ Vikram HoyAcute bronchitis, unspecified organism J20.9[facility] [place] [address]/Doug HoyIrritable bowel disease K58.9 ; Magnesium deficiency E61.2 ; Allergic rhinitis J30.9 and AlktyhhpvtV52.80[facility] [facility] [place] [address]/10/2024Doug HoyWrist arthritis M19.90[facility] [address] [place] [place] [place] [address]/oug HoyEncounter for Medicare annual wellness exam Z00.00 [...] vaporizer to help keep the drainage moist. Meob-quf-gpiqvlx Nasal Saline may help the stuffy and runny nose. Use Ibuprofen and or Tylenol as needed for fever, chills, body aches or pain. Children 5 years old should not be given expb-xbp-jnoqafe cough and cold medications such as guaifenesin and dextromethorphan. If you're over age 5, you may try lvxs-lwl-rnztccd cold medications such as guaifenesin and dextromethorphan, [...] chest pain [facility] or call [phone] bowel disease (ICD-10 - K58.9)stabel off meds10/22/2024Magnesium deficiency (ICD-10 - E61.2)checing labs01/02/2025 Wrist arthritis (ICD-10 - M19.90)02/09/2024Headache, unspecified (ICD-10 - R51.9)02/09/2024Edema (ICD-10 - R60.9)10/22/2024bnormal white blood cell (WBC) count (ICD-10 - D72.9)02/09/2024Insomnia (ICD-10 - G47.00)10/22/2024llergic rhinitis (ICD-10 - J30.9)stabel for [place]10/22/2024Osteopenia (ICD-10 - M85.80)on xitlqh0902/09/2024[facility] for Medicare annual wellness exam (ICD-10 [...] Coverage End Date [employer] [address] [place] [phone] [id number] Dalia Valente - patient is the [...]
--- OUTSIDE RECORDS SUMMARY | 2025-01-30 06:44 | XMS_ITS | Clinical Summary ---
Author Organization [facility] Address [address] [place] [address] Phone Care Team Providers Care Retail Stock Clerk Name Role Phone Unavailable Primary Care Provider Unavailabl e Social History Tobacco UseTypesPacks/DayYears UsedDateSmoking Tobacco: Never Assessed CommentsUnknownSex and Gender InformationValueDate RecordedSex Assigned at Not on fileLegal LerByydbw24/26/2022 7:23 PM ESTGender IdentityNot on fileSexual OrientationNot on file Plan of Treatment Not on file
--- OUTSIDE RECORDS SUMMARY | 2025-01-30 06:44 | XMS_ITS | Clinical Summary ---
Author Organization [facility] tem Address [id number] [address] [place] [address] Care Team Providers Care Chief Meter Reader Name Role Phone Evin Mora MD Primary Care Provider [phone] Allergies No known active allergies Medications MedicationSigDispense QuantityRefillsLast FilledStart DateEnd DateStatus simvastatin (ZOCOR) 20 mg tablet Take 20 mg by mouth nightly.Active cetirizine (ZyrTEC) 10 mg tablet Take 10 mg by mouth nightly.Active Active Problems ProblemNoted DateDiagnosed DateOther ntmxnsrvltwily85/11/2019Seasonal allergies 01/05/2019Primary osteoarthritis of right hip01/04/2019 Social History Tobacco UseTypesPacks/DayYears UsedDateSmoking Tobacco: FormerCigarettes0.043863 - 1984Smokeless Tobacco: NeverAlcohol UseStandard Drinks/WeekCommentsYes0 (1 standard drink = 0.6 oz pure alcohol)rareChildcareAnswerDate RecordedChildcare Zhpfjhq3009/06/2018EmploymentAnswerDate VwvvdiakYnspemaiixJhdxtgu45/12/2019Purpose - LifeAnswerDate RecordedPurpose and direction in baulNfhssdz73/11/2021 CommentsNoSex and Gender InformationValueDate RecordedSex Assigned at BirthNot on fileLegal BhrZvbslk23/06/2015 11:40 AM EDTGender IdentityNot on fileSexual OrientationNot on file Last Filed Vital Signs Vital SignReadingTime TakenCommentsBlood Ptyzzdgn044/7210 5:00 AM EDT Xrtgn861501/06/2019 5:00 AM ELKSyhbgxaireg10 ??C (98.6 ??F)01/06/2019 5:00 AM EDT Respiratory Goyz6025 5:00 AM EDTOxygen Husocnhafy20%01/06/2019 5:00 AM EDTInhaled Oxygen Concentration--Tkglzj87.2 kg (139 lb 5.3 oz)01/05/2019 10:15 AM MPMKnqlpj790 cm (5' 2.21 )01/05/2019 10:15 AM EDTBody Mass Index25.32 01/05/2019 10:15 AM EDT Plan of Treatment Health MaintenanceDue DateLast DoneCommentsDepression Xtkmdzmzn71/08/1969Tobacco Dngiuqzei59/08/1969Adult BMI Kmasuhwok26/08/1975DTaP,Tdap and Td Vaccines (1 - Tdap)1975Zoster (Shingles) Vaccine (1 of 2)2006Fall Risk Screening 2021Influenza Pmgwkjq6911/26/2024RSV ( or age 60+ yrs) (1 - 1-dose 75+ series)2031 Goals GoalPatient Goal TypeAssociated ProblemsRecent ProgressPatient-Stated?Author Improve mobility Linnette Sanchez, RN Note: Evaluation of progress towards goal: Maximize work with PT at discharge to strengthen R hip Medical Devices ImplantedTypeAreaManufacturerDevice IdentifierShelf Expiration DateModel / Serial / LotShl Actb 50mm Hip 3 Hl Fin Pps - [id number] Implanted:Qty: 1 on 01/05/2019 [facility] Im[facility]Right: HipZimmer Gudooo74/30/[id number] / / [id number] Actb G7 Ntrl E1 36mm D - [id number] Implanted:Qty: 1 on 01/05/2019 by Jorge Reeder MD at [facility] ImplantRight: Hip[employer]immer Lwpxmc44/22/[id number] / / [id number] Fem 142mm 133d 11 Hi Os - [id number] Implanted:Qty: 1 [facility]05/[facility] Hip[employer]immer Ymrslk21/07/[id number] / / [id number] Fem Opt -6mm Tpr Hip Blx D Rpl 650-1064 - [id number] Implanted:Qty: 1 on 01/05/2019 by Jorge Reeder MD at [facility] ImplantRight: Hip[employer]immer Pcjwoq41/12/[id number] / / [id number] Fem 36mm Opt Shl Actb G7 Bl Rpl 650-1057 - [id number] Implanted:Qty: 1 on 01/05/2019 [facility] ImplantRight: Hip[employer]immer Uppgly79/31/[id number] / / [id number] [place] [address] Advance Directives TypeDate RecordedPatient RepresentativeExplanationLiving 12/21/2018 10:43 AM Care Teams Team MemberRelationshipSpecialtyStart DateEnd Date Evin Mora MD PCP - GeneralFamily Medicine9/26/19
[2025-01-30 06:55] VITALS: BP 137/87; PULSE 75; TEMP 36.2; O2SAT 96; BMI 23.3
[2025-01-30 08:09] VITALS: BP 132/82; PULSE 81; TEMP 36.3; O2SAT 99
[2025-01-30 08:24] VITALS: BP 127/86; PULSE 70; O2SAT 96
[2025-01-30 08:39] VITALS: BP 140/85; PULSE 73; O2SAT 98
== END 2025-01-30 08:39 | disposition home or self-care (01) ==
LOC: SURGOUT 06:40
PROVIDERS: PCP Family Medicine; Visit Provider Surgery
PROC: (CPT G0121; principal; 2025-01-30 07:55)
DX: Z12.11 Encounter for screening for malignant neoplasm of colon (principal); E78.00 Pure hypercholesterolemia, unspecified; M81.0 Age-related osteoporosis without current pathological fracture; Z79.899 Other long term (current) drug therapy; Z98.51 Tubal ligation status; Z96.659 Presence of unspecified artificial knee joint; Z96.649 Presence of unspecified artificial hip joint; F41.9 Anxiety disorder, unspecified; L30.9 Dermatitis, unspecified
CPT/HCPCS: G0121; J2704